=== PATIENT | female | born 1965 | race Caucasian/White ===

== ENCOUNTER 2016-07-31 12:39 | Inpatient (IN) | payer MEDICAID ==
--- NOTE | 2016-07-31 13:45 | PCM.OC ---
Ortho Clinic - Subjective - Subjective Vital Signs: Last Vital Signs Temp 98 F 07/31/16 13:29 Pulse 90 07/31/16 13:29 Resp BP 154/97 H 07/31/16 13:29 Pulse Ox Home Medications: Home Meds Amitriptyline [Elavil] 25 mg PO DAILY 07/31/16 [History] Cyclobenzaprine [Flexeril] 10 mg PO TID 07/31/16 [History] Diclofenac Sodium 2 gm TOP TID 07/31/16 [History] Gabapentin [Neurontin] 300 mg PO BID 07/31/16 [History] Hydrochlorothiazide 12.5 mg PO DAILY 07/31/16 [History] Ibuprofen 800 mg PO TID 07/31/16 [History] Melatonin 10 mg PO BEDTIME 07/31/16 [History] Melatonin 10 mg PO BEDTIME 07/31/16 [History] Pantoprazole [Protonix] 40 mg PO DAILY 07/31/16 [History] Potassium Chloride 10 meq PO DAILY 07/31/16 [History] Propranolol [Inderal LA] 80 mg PO DAILY 07/31/16 [History] Sertraline [Zoloft] 100 mg PO DAILY 07/31/16 [History] amLODIPine [Norvasc] 5 mg PO DAILY 07/31/16 [History] atorvaSTATin [Lipitor] 40 mg PO BEDTIME 07/31/16 [History] glipiZIDE [Glipizide ER] 10 mg PO DAILY 07/31/16 [History] metFORMIN [Glucophage] 2 tab PO BID 07/31/16 [History] traMADol [Ultram] 2 tab PO Q6H PRN 07/31/16 [History] Ortho Clinic - Objective - Objective Height: 5 ft 4 in Weight: 210 lb 12.8 oz Ortho Clinic - Past Med Histry Musculoskeletal History: Reports: Back pain, chronic Ortho Clinic Review of Systems - Review of Systems: Review Of Systems: See Below General: Reports: no symptoms HEENT: Reports: no symptoms Pulmonary: Reports: No Symptoms Cardiovascular: Reports: no symptoms Gastrointestinal: Reports: No symptoms Genitourinary: Reports: no symptoms Musculoskeletal: Reports: neck pain, back pain, leg pain Skin: Reports: no symptoms Psychiatric: Reports: no symptoms Neurological: Reports: Numbness, Paresthesia, Tingling, Difficulty Walking, Weakness, Gait Disturbance Hematologic/Lymphatic: Reports: no symptoms Immunologic: Reports: no symptoms Ortho Clinic - AP - Problems List (1) History of cervical spinal arthrodesis SNOMED Code(s): 832705957, [id number] ICD Code: Z98.1 - ARTHRODESIS STATUS Status: Acute Current Visit: Yes (2) Myelopathy Status: Acute Current Visit: Yes - Plan Plan: I had the pleasure of visiting with the patient and her in clinic. She is a pleasant 50-year-old female. In the last 2 months she's had episodes where she just falls. She states she is very unsteady on her feet. She is having difficulty walking. She denies any severe pain in her back. She does have some pain in her neck. She has numbness of almost the entire left lower extremity. She had 2 previous cervical surgeries as well some posterior cervical surgery in 2003 in [place]. SPINE Musculoskeletal Physical Examination Constitutional: Vital signs including height and weight were reviewed and documented on the patient's chart. General appearance demonstrates normal development and overweight body habitus. HEENT: Normocephalic, atraumatic. Neurological: The patient is alert and oriented to person, place, and time. Mood and affect are appropriate. Gait and station are severely antalgic. Intact sensation is noted but decreased in the left L3, L4, L5, and S1 distribution. Deep tendon reflexes are symmetrically decreased. Clonus negative. Dockery's negative. Coordination and balance are severely impaired. Lumbar spine: Inspection/palpation: Normal symmetry and appearance without tenderness. Range of motion: Flexion with fingers to knees with difficulty secondary to balance. 15 extension with difficulty due to balance. Normal side bending without pain. Stability: Stable through range of motion. Strength : Normal muscle strength and tone. Skin: Normal skin tone without rashes or lesions. Cervical Spine: Inspection/palpation: Normal symmetry and appearance with bilateral paraspinal tenderness. Range of motion: Normal flexion. 50 extension. 30 bilateral rotation with pain. Stability: Stable through range of motion. Strength: Normal muscle strength and tone. Skin: Normal skin tone without rashes or lesions. Right upper extremity: Inspection/palpation: Normal symmetry and appearance without tenderness. Range of motion: Full range of motion without pain. Stability: Stable through range of motion. Strength: Normal muscle strength and tone. Skin: Normal skin tone without rashes or lesions. Left upper extremity: Inspection/palpation: Normal symmetry and appearance without tenderness. Range of motion: Full range of motion without pain. Stability: Stable through range of motion. Strength: Normal muscle strength and tone. Skin: Normal skin tone without rashes or lesions. Right lower extremity: Inspection/palpation: Normal symmetry and appearance without tenderness. Range of motion: Full range of motion without pain. Stability: Stable through range of motion. Strength: Normal muscle strength and tone. Skin: Normal skin tone without rashes or lesions.2 beats clonus. Log roll negative. Straight leg raise negative. Left lower extremity: Inspection/palpation: Normal symmetry and appearance without tenderness. Range of motion: Full range of motion without pain. Stability: Stable through range of motion. Strength: Normal muscle strength and tone except dorsiflexors 4/5, knee extensors 4/5, hip flexors 4 minus out of 5. Skin: Normal skin tone without rashes or lesions.no clonus. Straight leg raise negative. Log roll negative. Imaging: Multiple views of the lumbar spine reviewed incorporated into the decision-making process. There is a nonmobile retrolisthesis at L1-2 of 2 mm, anterolisthesis of L4-5 of 4 mm. On the AP view in the coronal plane there is an apex right L3 10 scoliotic curve Cervical spine:multiple views of the cervical spine reviewed incorporated into the decision-making process. There is ossification posterior to the anterior cervical discectomy and fusion performed at C4-C6. The plate and screw constructs is in place at C4-C6. I do not see any lucency around the plate or screws. I do not see any areas of listhesis. It is difficult to appreciate the lower cervical spine. MRI: MRI shows no significant areas of central or foraminal stenosis. plan: I believe that the patient has cervical myelopathy. She certainly has severe ataxia. I would like to admit her for further workup. This would include an urgent MRI of the brain, cervical spine, and thoracic spine. I will evaluating her after these are complete.
--- NOTE | 2016-07-31 14:28 | CR ---
Cervical Spine Min 4V INDICATION: NECK PAIN FINDINGS: Postoperative changes anterior fusion from C4 through C7. Hardware appears intact. Degener ative disc space narrowing and endplate hypertrophic changes at C3-4. No evidence for instability on flexion or extension views.
--- NOTE | 2016-07-31 14:39 | CR ---
Lumbar Spine Min 4V INDICATION: BACK PAIN FINDINGS: 5 lumbar type vertebral bodies. Lumbar curve convex to the right. No instability on flexio n or extension views. Moderate degenerative arthritis lower lumbar facet joints.
--- NOTE | 2016-07-31 14:58 | PCM.HP ---
H&P History of Present Illness - General Date of Service: 07/31/16 Admit Problem/Dx: Admission Diagnosis/Problem Admission Diagnosis/Problem Cervical myelopathy Source of Information: Patient History Limitations: Reports: No limitations - History of Present Illness Onset of Symptoms: Reports: gradual Duration of Symptoms: Reports: Getting worse Location: Reports: neck, lower extremity, left Improves with: Reports: None Worsens with: Reports: None Associated Symptoms: Reports: weakness Lower Back Pain Score (Numeric/FACES): 1 - Related Data Allergies/Adverse Reactions: Allergies Allergy/AdvReac Type Severity Reaction Status Date / Time clonidine [From Catapres] Allergy Rash Verified 07/31/16 13:34 lisinopril Allergy Hives Verified 07/31/16 13:34 Home Medications: Home Meds Amitriptyline [Elavil] 25 mg PO DAILY 07/31/16 [History] Cyclobenzaprine [Flexeril] 10 mg PO TID 07/31/16 [History] Diclofenac Sodium 2 gm TOP TID 07/31/16 [History] Gabapentin [Neurontin] 300 mg PO BID 07/31/16 [History] Hydrochlorothiazide 12.5 mg PO DAILY 07/31/16 [History] Ibuprofen 800 mg PO TID 07/31/16 [History] Melatonin 10 mg PO BEDTIME 07/31/16 [History] Melatonin 10 mg PO BEDTIME 07/31/16 [History] Pantoprazole [Protonix] 40 mg PO DAILY 07/31/16 [History] Potassium Chloride 10 meq PO DAILY 07/31/16 [History] Propranolol [Inderal LA] 80 mg PO DAILY 07/31/16 [History] Sertraline [Zoloft] 100 mg PO DAILY 07/31/16 [History] amLODIPine [Norvasc] 5 mg PO DAILY 07/31/16 [History] atorvaSTATin [Lipitor] 40 mg PO BEDTIME 07/31/16 [History] glipiZIDE [Glipizide ER] 10 mg PO DAILY 07/31/16 [History] metFORMIN [Glucophage] 2 tab PO BID 07/31/16 [History] traMADol [Ultram] 2 tab PO Q6H PRN 07/31/16 [History] Past Medical History Musculoskeletal History: Reports: Back pain, chronic H&P Review of Systems - Review of Systems: Review Of Systems: See Below General: Reports: weakness HEENT: Reports: no symptoms Pulmonary: Reports: No Symptoms Cardiovascular: Reports: no symptoms Gastrointestinal: Reports: No symptoms Genitourinary: Reports: no symptoms Musculoskeletal: Reports: neck pain, back pain Skin: Reports: no symptoms (with ais) Psychiatric: Reports: no symptoms (now the well to the) Neurological: Reports: Numbness, Tingling, Difficulty Walking, Weakness, Gait Disturbance Hematologic/Lymphatic: Reports: no symptoms Immunologic: Reports: no symptoms Exam - Exam Exam: See Below - Vital Signs Vital Signs: Last Vital Signs Temp 99.2 F 07/31/16 14:52 Pulse 93 07/31/16 14:52 Resp 18 07/31/16 14:52 BP 172/95 H 07/31/16 14:52 Pulse Ox 97 07/31/16 14:52 Weight: 210 lb 12.8 oz - Exam General: alert, oriented HEENT: PERRLA, Conjunctiva clear, EOMI Neck: supple, trachea midline (of her) Skin: warm, dry, intact Neurological: cranial nerves intact, reflexes equal bilateral Neuro Extensive - Mental Status: alert, oriented x3, normal mood/affect, normal cognition Neuro Extensive - Motor, Sensory, Reflexes: abnormal Romberg, abnormal sensation , abnormal light touch DTR: 1+: patella (L), patella (R), 2+: achilles (L), achilles (R) Psychiatric: alert, normal affect, normal mood *Q Meaningful Use (ADM) - VTE *Q VTE Criteria *Q: - Stroke *Q Stroke Criteria *Q: - AMI *Q AMI Criteria *Q: - Problem List (1) History of cervical spinal arthrodesis SNOMED Code(s): 519601613, [id number] ICD Code: Z98.1 - ARTHRODESIS STATUS Status: Acute Current Visit: Yes (2) Myelopathy Status: Acute Current Visit: Yes Problem List Initiated/Reviewed/Updated: Yes Orders Last 24hrs: Active Orders 24 hr Category Date Time Status Patient Status [ADT] Routine ADT 07/31/16 14:49 Active Notify Provider Consults [RC] ASDIRECTED Care 07/31/16 14:52 Active Oxygen Therapy [RC] PRN Care 07/31/16 14:49 Active Up ad Janessa [RC] ASDIRECTED Care 07/31/16 14:49 Active VTE/DVT Education [RC] Per Unit Routine Care 07/31/16 14:49 Active Vital Signs [RC] Q4H Care 07/31/16 14:49 Active Consult to Physician [CONS] Routine Cons 07/31/16 14:49 Ordered Regular Diet [DIET] Diet 07/31/16 Dinner Active Amitriptyline [Elavil] Med 08/01/16 09:00 Ordered 25 mg PO DAILY Cyclobenzaprine [Flexeril] Med 07/31/16 21:00 Ordered 10 mg PO TID Diclofenac Sodium [Diclofenac Sodium] Med 07/31/16 21:00 Ordered 2 gm TOP TID Gabapentin [Neurontin] Med 07/31/16 21:00 Ordered 300 mg PO BID Hydrochlorothiazide [Hydrochlorothiazide] Med 08/01/16 09:00 Ordered 12.5 mg PO DAILY Ibuprofen [Motrin] Med 07/31/16 21:00 Ordered 800 mg PO TID Melatonin [Melatonin] Med 07/31/16 21:00 Ordered 10 mg PO BEDTIME Pantoprazole [Protonix] Med 08/01/16 09:00 Ordered 40 mg PO DAILY Potassium Chloride [Potassium Chloride] Med 08/01/16 09:00 Ordered 10 meq PO DAILY Propranolol [Inderal LA] Med 08/01/16 09:00 Ordered 80 mg PO DAILY Sertraline [Zoloft] Med 08/01/16 09:00 Ordered 100 mg PO DAILY amLODIPine [Norvasc] Med 08/01/16 09:00 Ordered 5 mg PO DAILY atorvaSTATin [Lipitor] Med 07/31/16 21:00 Ordered 40 mg PO BEDTIME glipiZIDE [Glipizide ER] Med 08/01/16 09:00 Ordered 10 mg PO DAILY metFORMIN [Glucophage] Med 07/31/16 21:00 Ordered 2 tab PO BID traMADol [Ultram] Med 07/31/16 14:52 Ordered 2 tab PO Q6H PRN Sequential Compression Device [OM.PC] Per Unit Routine Oth 07/31/16 14:50 Ordered Resuscitation Status Routine Resus Stat 07/31/16 14:49 Ordered Assessment/Plan Comment:: I had the pleasure of visiting with the patient and her in clinic. She is a pleasant 50-year-old female. In the last 2 months she's had episodes where she just falls. She states she is very unsteady on her feet. She is having difficulty walking. She denies any severe pain in her back. She does have some pain in her neck. She has numbness of almost the entire left lower extremity. She had 2 previous cervical surgeries as well some posterior cervical surgery in 2003 in [place]. SPINE Musculoskeletal Physical Examination Constitutional: Vital signs including height and weight were reviewed and documented on the patient's chart. General appearance demonstrates normal development and overweight body habitus. HEENT: Normocephalic, atraumatic. Neurological: The patient is alert and oriented to person, place, and time. Mood and affect are appropriate. Gait and station are severely antalgic. Intact sensation is noted but decreased in the left L3, L4, L5, and S1 distribution. Deep tendon reflexes are symmetrically decreased. Clonus negative. Dockery's negative. Coordination and balance are severely impaired. Lumbar spine: Inspection/palpation: Normal symmetry and appearance without tenderness. Range of motion: Flexion with fingers to knees with difficulty secondary to balance. 15 extension with difficulty due to balance. Normal side bending without pain. Stability: Stable through range of motion. Strength : Normal muscle strength and tone. Skin: Normal skin tone without rashes or lesions. Cervical Spine: Inspection/palpation: Normal symmetry and appearance with bilateral paraspinal tenderness. Range of motion: Normal flexion. 50 extension. 30 bilateral rotation with pain. Stability: Stable through range of motion. Strength: Normal muscle strength and tone. Skin: Normal skin tone without rashes or lesions. Right upper extremity: Inspection/palpation: Normal symmetry and appearance without tenderness. Range of motion: Full range of motion without pain. Stability: Stable through range of motion. Strength: Normal muscle strength and tone. Skin: Normal skin tone without rashes or lesions. Left upper extremity: Inspection/palpation: Normal symmetry and appearance without tenderness. Range of motion: Full range of motion without pain. Stability: Stable through range of motion. Strength: Normal muscle strength and tone. Skin: Normal skin tone without rashes or lesions. Right lower extremity: Inspection/palpation: Normal symmetry and appearance without tenderness. Range of motion: Full range of motion without pain. Stability: Stable through range of motion. Strength: Normal muscle strength and tone. Skin: Normal skin tone without rashes or lesions.2 beats clonus. Log roll negative. Straight leg raise negative. Left lower extremity: Inspection/palpation: Normal symmetry and appearance without tenderness. Range of motion: Full range of motion without pain. Stability: Stable through range of motion. Strength: Normal muscle strength and tone except dorsiflexors 4/5, knee extensors 4/5, hip flexors 4 minus out of 5. Skin: Normal skin tone without rashes or lesions.no clonus. Straight leg raise negative. Log roll negative. Imaging: Multiple views of the lumbar spine reviewed incorporated into the decision-making process. There is a nonmobile retrolisthesis at L1-2 of 2 mm, anterolisthesis of L4-5 of 4 mm. On the AP view in the coronal plane there is an apex right L3 10 scoliotic curve Cervical spine:multiple views of the cervical spine reviewed incorporated into the decision-making process. There is ossification posterior to the anterior cervical discectomy and fusion performed at C4-C6. The plate and screw constructs is in place at C4-C6. I do not see any lucency around the plate or screws. I do not see any areas of listhesis. It is difficult to appreciate the lower cervical spine. MRI: MRI shows no significant areas of central or foraminal stenosis. plan: I believe that the patient has cervical myelopathy. She certainly has severe ataxia. I would like to admit her for further workup. This would include an urgent MRI of the brain, cervical spine, and thoracic spine. I will evaluate her after these are complete.
[2016-07-31] MEDS: metFORMIN 500 MG Tab PO SCH (16:42)
--- NOTE | 2016-07-31 17:56 | PCM.CONS ---
H&P History of Present Illness - General Date of Service: 07/31/16 Admit Problem/Dx: Source of Information: Patient, Family, Provider History Limitations: Reports: No limitations - History of Present Illness Initial Comments - Free Text/Narative: This patient is a 50-year-old woman who I been asked to see by Dr. Tim Dorado for further evaluation of left leg numbness, difficulty with ambulation, and frequent falls. Symptoms have been present over the past 3 months, symptoms developed when she slipped and fell on the ice, landing on her buttocks. Since then symptoms have progressively increased to the point where she feels like her left leg is almost totally numb with no sensation. She denies significant motor weakness in the leg. Otherwise she is felt relatively well, appetite has been good, with no significant weight loss. Lower Back Pain Score (Numeric/FACES): 1 - Related Data Allergies/Adverse Reactions: Allergies Allergy/AdvReac Type Severity Reaction Status Date / Time clonidine [From Catapres] Allergy Rash Verified 07/31/16 13:34 lisinopril Allergy Hives Verified 07/31/16 13:34 Home Medications: Home Meds Amitriptyline [Elavil] 25 mg PO BEDTIME 07/31/16 [History] Cyclobenzaprine [Flexeril] 10 mg PO TID 07/31/16 [History] Diclofenac Sodium 2 gm TOP TID 07/31/16 [History] Gabapentin [Neurontin] 300 mg PO BID 07/31/16 [History] Hydrochlorothiazide 12.5 mg PO DAILY 07/31/16 [History] Ibuprofen 800 mg PO TID 07/31/16 [History] Melatonin 10 mg PO BEDTIME 07/31/16 [History] Melatonin 10 mg PO BEDTIME 07/31/16 [History] Pantoprazole [Protonix] 40 mg PO DAILY 07/31/16 [History] Potassium Chloride 10 meq PO DAILY 07/31/16 [History] Propranolol [Inderal LA] 80 mg PO BEDTIME 07/31/16 [History] Sertraline [Zoloft] 100 mg PO DAILY 07/31/16 [History] amLODIPine [Norvasc] 5 mg PO DAILY 07/31/16 [History] atorvaSTATin [Lipitor] 40 mg PO BEDTIME 07/31/16 [History] glipiZIDE [Glipizide ER] 10 mg PO DAILY 07/31/16 [History] metFORMIN [Glucophage] 1,000 mg PO BID 07/31/16 [History] traMADol [Ultram] 100 mg PO Q6H PRN 07/31/16 [History] Past Medical History Gastrointestinal History: Reports: [employer] History: Reports: Musculoskeletal History: Reports: Back pain, chronic, Neck pain, chronic Neurological History: Reports: Headaches, chronic Endocrine/Metabolic History: Reports: Diabetes, type II - Past Surgical History GI Surgical History: Reports: Arvind fundoplication Neurological Surgical History: Reports: C-Spine Musculoskeletal Surgical History: Reports: Other (see below) Other Musculoskeletal Surgeries/Procedures:: neck surgery x 2 Social & Family History - Family History Family Medical History: Noncontributory - Tobacco Use Smoking Status *Q: Never Smoker Second Hand Smoke Exposure: No - Caffeine Use Caffeine Use: Reports: Coffee - Recreational Drug Use Recreational Drug Use: No H&P Review of Systems - Review of Systems: Review Of Systems: See Below General: Denies: fever, chills, malaise, weakness, fatigue, night sweats, diaphoresis, decreased appetite, weight loss HEENT: Reports: no symptoms Pulmonary: Reports: No Symptoms Cardiovascular: Reports: no symptoms Gastrointestinal: Reports: No symptoms Genitourinary: Reports: no symptoms Musculoskeletal: Reports: no symptoms Skin: Reports: no symptoms Psychiatric: Reports: no symptoms Neurological: Reports: Numbness, Difficulty Walking. Denies: Confusion, Dizziness, Headache, Seizure, Syncope, Tingling, Tremors, Trouble Speaking, Weakness, Change in Speech Hematologic/Lymphatic: Reports: no symptoms Immunologic: Reports: no symptoms Exam - Exam Exam: See Below - Vital Signs Vital Signs: Last Vital Signs Temp 99.2 F 07/31/16 14:52 Pulse 93 07/31/16 14:52 Resp 18 07/31/16 14:52 BP 172/95 H 07/31/16 14:52 Pulse Ox 97 07/31/16 14:52 Weight: 210 lb 12.8 oz - Exam General: alert, oriented, cooperative, mild distress HEENT: Conjunctiva clear, Hearing intact, Mucosa moist & pink, Nares patent, Normal nasal septum, Posterior pharynx clear, Pupils equal, Pupils reactive Neck: supple, trachea midline, +2 carotid pulse wo bruit Lungs: Clear to auscultation, Normal respiratory effort Cardiovascular: regular rate, regular rhythm, normal S1, normal S2. No: irregular rhythm, bradycardia, tachycardia, systolic murmur, diastolic murmur Abdomen: normal bowel sounds, soft. No: organomegaly, peritoneal signs, distention, guarding, rigidity, rebound, tenderness Back Exam: normal inspection, full range of motion, NT Extremities: normal inspection, normal pulses Skin: warm, dry, intact Neurological: cranial nerves intact, reflexes equal bilateral, strength equal bilateral, normal speech, normal tone, Babinski. No: sensation intact Neuro Extensive - Mental Status: alert, oriented x3, normal mood/affect, normal cognition, memory intact Neuro Extensive - Motor, Sensory, Reflexes: abnormal sensation, abnormal light touch. No: ataxia, abnormal finger to nose, abnormal heel to shaw Consult PN Assessment/Plan Problem List Initiated/Reviewed/Updated: Yes My Orders last 24 hours: My Active Orders 07/31/16 17:48 CBC WITH AUTO DIFF [HEME] Urgent COMPREHENSIVE METABOLIC PN,CMP [CHEM] Urgent 07/31/16 17:49 CRP [C-REACTIVE PROTEIN] [CHEM] Routine FOLIC ACID [CHEM] Routine MAGNESIUM [CHEM] Urgent SEDIMENTATION RATE MANUAL [HEME] Routine TSH ULTRASENSITIVE [CHEM] Urgent VITAMIN B12 [CHEM] Routine Plan: ASSESSMENT AND RECOMMENDATIONS DECREASED SENSATION LEFT LEG-symptoms first occurred following a fall onto her buttocks after she slipped on the ice. Since then has developed progressive numbness and difficulty with ambulation involving the left leg. On evaluation has decreased sensation in the left leg and foot, including touch, pain and position sense. There is mild weakness which may also be a contributing factor. Reflexes were normal and symmetrical and Babinski's is normal. -MRI of the brain with and without contrast -MRI of the spine as ordered by Dr. Dorado -Laboratory studies including CMP, CBC, sedimentation rate, CRP, T12, folate, and TSH Requesting Provider: Date Consult Requested: 07/31/16 Reason for Consult: Decreased sensation left leg with frequent falls Patient History Reviewed: Yes Admission H&P Reviewed: Yes
[2016-07-31] MEDS ORDERED: DICLOFENAC SODIUM 2 GM TOP SCH (21:00)
[2016-07-31] MEDS ORDERED: Non-Formulary Medication 1 Each (Atorvastatin [Lipitor] 40 MG) PO SCH (21:00)
[2016-07-31] MEDS ORDERED: Non-Formulary Medication 1 Each (Melatonin [Melatonin] 10 MG) PO SCH (21:00)
[2016-07-31] MEDS ORDERED: Gabapentin 300 MG Cap PO SCH (21:00)
[2016-07-31] MEDS: traMADol 50 MG Tab PO PRN (21:59)
[2016-07-31] MEDS: Melatonin 3 MG Tab PO SCH (22:00)
[2016-07-31] MEDS: atorvaSTATin 20 MG Tab PO SCH (22:00)
[2016-07-31] MEDS: Amitriptyline 25 MG Tab PO SCH (22:01)
[2016-07-31] MEDS: Cyclobenzaprine 10 MG Tab PO SCH (22:01)
[2016-07-31] MEDS: Ibuprofen 800 MG Tab PO SCH (22:01)
[2016-07-31] MEDS: Diclofenac Sodium 1% Gel 100 GM Tube TOP SCH (22:02)
[2016-07-31] MEDS: Propranolol 80 MG Cap.ER PO SCH (22:05)
[2016-07-31] MEDS: Gabapentin 300 MG Cap PO SCH (22:15)
[2016-07-31] MEDS: Dexamethasone 4 MG/ML SDV IVPUSH SCH (22:17)
[2016-07-31] MEDS ORDERED: Sertraline 50 MG Tab PO ONE (22:30)
[2016-08-01] MEDS: Dexamethasone 4 MG/ML SDV IVPUSH SCH ×2 (02:46→08:21)
[2016-08-01] MEDS: traMADol 50 MG Tab PO PRN ×3 (04:53→21:21)
[2016-08-01] MEDS: metFORMIN 500 MG Tab PO SCH ×2 (07:29→17:23)
[2016-08-01] MEDS: Pantoprazole 40 MG Tab.CR PO SCH (07:30)
[2016-08-01] MEDS: glipiZIDE 5 MG Tab.ER PO SCH ×2 (07:31→08:08)
[2016-08-01] MEDS: Ibuprofen 800 MG Tab PO SCH ×3 (08:06→21:02)
[2016-08-01] MEDS: Gabapentin 300 MG Cap PO SCH ×3 (08:07→21:04)
[2016-08-01] MEDS: Propranolol 80 MG Cap.ER PO SCH ×2 (08:09→21:05)
[2016-08-01] MEDS: amLODIPine 5 MG Tab PO SCH (08:09)
[2016-08-01] MEDS: Potassium Chloride 10 MEQ Cap.ER PO SCH (08:10)
[2016-08-01] MEDS: Diclofenac Sodium 1% Gel 100 GM Tube TOP SCH ×3 (08:12→21:06)
[2016-08-01] MEDS: Diazepam 5 MG Tab PO ONE ×2 (08:20→10:30)
[2016-08-01] MEDS ORDERED: Non-Formulary Medication 1 Each (Potassium Chloride [Potassium Chloride] 10 MEQ) PO SCH (09:00)
[2016-08-01] MEDS ORDERED: Sertraline 50 MG Tab PO SCH (09:00)
[2016-08-01] MEDS ORDERED: Non-Formulary Medication 1 Each (Sertraline [Zoloft] 100 MG) PO SCH (09:00)
[2016-08-01] MEDS ORDERED: Non-Formulary Medication 1 Each (Glipizide [Glipizide Er] 10 MG) PO SCH (09:00)
[2016-08-01] MEDS ORDERED: Non-Formulary Medication 1 Each (Hydrochlorothiazide [Hydrochlorothiazide] 12.5 MG) PO SCH (09:00)
[2016-08-01] MEDS ORDERED: Gadoteridol 279.3 MG/ML 20 ML SDV IV PRN (10:45)
[2016-08-01] MEDS: Cyclobenzaprine 10 MG Tab PO SCH ×3 (11:19→21:05)
[2016-08-01] MEDS: Magnesium Oxide 400 MG Tab PO SCH ×2 (11:19→21:03)
[2016-08-01] MEDS: Hydrochlorothiazide 12.5 MG Cap PO SCH (11:20)
--- NOTE | 2016-08-01 12:12 | MR ---
Brain w wo Cont INDICATION: ataxia FINDINGS: Patient motion artifact degrades image quality. No evidence for mass, or restricted diffus ion. No abnormal contrast enhancement. Single 3 mm punctate focus of T2 hyperintensity in the subcor tical white matter of the left frontal lobe is nonspecific and is of doubtful clinical significance. Minimal mucosal thickening in the ethmoid sinuses. Exam otherwise negative. IMPRESSION: No acute findings.
--- NOTE | 2016-08-01 12:17 | MR ---
Cervical Spine Comp wo Cont, Thoracic Spine Comp wo Cont INDICATION: cervical neck pain FINDINGS: Patient motion artifact degrades image quality. Normal T1 marrow signal. Scattered benign vertebral hemangiomas. Postoperative changes anterior fusion from C4 through C7. Moderate sized disc osteophyte complex at C3-4 produces mild spinal canal and moderate bilateral neural foraminal narro wing. 3 mm anterolisthesis of C7 on T1 with disc osteophyte complex produces moderate/severe spinal canal narrowing with an AP dimension measuring 5 mm and severe bilateral neural foraminal narrowing. No evidence for abnormal cervical cord signal. Disc osteophyte complex with disc desiccation at T11-12 minimally contacts the thoracic cord but langston s not produce significant spinal canal narrowing. No significant foraminal narrowing in the thoracic spine any level. Small esophageal hiatal hernia. Exam otherwise negative. IMPRESSION: Stenosis most marked at C7-T1 is graded as moderate/severe spinal canal narrowing with a n AP dimension measuring 5 mm. Severe bilateral neural foraminal narrowing at C7-T1. No evidence for abnormal cervical or thoracic cord signal.
--- NOTE | 2016-08-01 12:52 | PCM.PN ---
- General Info Date of Service: 08/01/16 - Review of Systems General: Reports: No Symptoms HEENT: Reports: no symptoms Pulmonary: Reports: no symptoms Cardiovascular: Reports: No Symptoms Gastrointestinal: Reports: No symptoms Genitourinary: Reports: no symptoms Musculoskeletal: Reports: no symptoms Skin: Reports: no symptoms Neurological: Reports: Numbness, Paresthesia, Tingling, Difficulty Walking, Weakness, Gait Disturbance Psychiatric: Reports: no symptoms - Patient Data Vitals - most recent: Last Vital Signs Temp 98.1 F 08/01/16 11:57 Pulse 104 H 08/01/16 11:57 Resp 16 08/01/16 11:57 BP 122/79 08/01/16 11:57 Pulse Ox 95 08/01/16 11:57 Weight - most recent: 210 lb 12.8 oz I&O - last 24 hours: Intake & Output 07/31/16 08/01/16 08/01/16 22:59 06:59 14:59 Intake Total 360 960 Output Total 500 400 Balance -140 560 Lab Results last 24 hrs: Laboratory Results - last 24 hr 07/31/16 07/31/16 07/31/16 Range/Units 18:28 18:28 18:28 WBC 12.0 H (4.5-11.0) K/uL RBC 4.43 (3.30-5.50) M/uL Hgb 13.1 (12.0-15.0) g/dL Hct 38.9 (36.0-48.0) % MCV 88 (80-98) fL MCH 30 (27-31) pg MCHC 34 (32-36) % Plt Count 337 (150-400) K/uL Neut % (Auto) 58 (36-66) % Lymph % (Auto) 30 (24-44) % [place] % (Auto) 7 H (2-6) % Eos % (Auto) 4 (2-4) % Baso % (Auto) 1 (0-1) % ESR 29 H (0-25) mm/hr Sodium 141 (140-148) mmol/L Potassium 3.8 (3.6-5.2) mmol/L Chloride 103 (100-108) mmol/L Carbon Dioxide 26 (21-32) mmol/L Anion Gap 12.1 (5.0-14.0) mmol/L BUN 9 (7-18) mg/dL Creatinine 0.8 (0.6-1.0) mg/dL Est Cr Clr Drug Dosing 74.26 mL/min Estimated GFR (MDRD) > 60 (>60) Glucose 200 H (74-106) mg/dL Calcium 9.3 (8.5-10.1) mg/dL Magnesium (1.8-2.4) mg/dL Total Bilirubin 0.8 (0.2-1.0) mg/dL AST 21 (15-37) U/L ALT 37 (12-78) U/L Alkaline Phosphatase 103 (46-116) U/L C-Reactive Protein (0.0-0.3) mg/dL Total Protein 7.6 (6.4-8.2) g/dL Albumin 3.5 (3.4-5.0) g/dL Globulin 4.1 H (2.3-3.5) g/dL Albumin/Globulin Ratio 0.9 L (1.2-2.2) Vitamin B12 (193-986) pg/ml Folate (8.6-58.9) ng/ml TSH, Ultra Sensitive (0.358-3.740) uIU/mL 07/31/16 07/31/16 Range/Units 18:28 18:28 WBC (4.5-11.0) K/uL RBC (3.30-5.50) M/uL Hgb (12.0-15.0) g/dL Hct (36.0-48.0) % MCV (80-98) fL MCH (27-31) pg MCHC (32-36) % Plt Count (150-400) K/uL Neut % (Auto) (36-66) % Lymph % (Auto) (24-44) % [place] % (Auto) (2-6) % Eos % (Auto) (2-4) % Baso % (Auto) (0-1) % ESR (0-25) mm/hr Sodium (140-148) mmol/L Potassium (3.6-5.2) mmol/L Chloride (100-108) mmol/L Carbon Dioxide (21-32) mmol/L Anion Gap (5.0-14.0) mmol/L BUN (7-18) mg/dL Creatinine (0.6-1.0) mg/dL Est Cr Clr Drug Dosing mL/min Estimated GFR (MDRD) (>60) Glucose (74-106) mg/dL Calcium (8.5-10.1) mg/dL Magnesium 1.6 L (1.8-2.4) mg/dL Total Bilirubin (0.2-1.0) mg/dL AST (15-37) U/L ALT (12-78) U/L Alkaline Phosphatase (46-116) U/L C-Reactive Protein 0.63 H (0.0-0.3) mg/dL Total Protein (6.4-8.2) g/dL Albumin (3.4-5.0) g/dL Globulin (2.3-3.5) g/dL Albumin/Globulin Ratio (1.2-2.2) Vitamin B12 516 (193-986) pg/ml Folate 10.7 (8.6-58.9) ng/ml TSH, Ultra Sensitive 3.859 H (0.358-3.740) uIU/mL Med Orders - Current: Current Medications Amitriptyline HCl (Elavil) 25 mg PO BEDTIME [facility] Last Admin: 07/31/16 22:01 Dose: 25 mg Amlodipine Besylate (Norvasc) 5 mg PO DAILY [facility] Last Admin: 08/01/16 08:09 Dose: 5 mg Atorvastatin Calcium (Lipitor) 40 mg PO BEDTIME [facility] Last Admin: 07/31/16 22:00 Dose: 40 mg Cyclobenzaprine HCl (Flexeril) 10 mg PO TID [facility] Last Admin: 08/01/16 11:19 Dose: 10 mg Diclofenac Sodium (Voltaren 1% Gel) 0 gm TOP TID [facility] Last Admin: 08/01/16 08:12 Dose: Not Given Gabapentin (Neurontin) 900 mg PO 0900,1300 [facility] Last Admin: 08/01/16 08:07 Dose: 900 mg Gabapentin (Neurontin) 1,200 mg PO BEDTIME [facility] Last Admin: 07/31/16 22:15 Dose: 1,200 mg Gadoteridol (Prohance) 20 ml IV . DIRECTED PRN PRN Reason: RADIOLOGY EXAM Stop: 08/02/16 10:46 Last Admin: 08/01/16 11:13 Dose: 20 ml Glipizide (Glucotrol Xl) 10 mg PO DAILY [facility] Last Admin: 08/01/16 08:08 Dose: Not Given Hydrochlorothiazide (Hydrochlorothiazide) 12.5 mg PO DAILY [facility] Last Admin: 08/01/16 11:20 Dose: 12.5 mg Ibuprofen (Motrin) 800 mg PO TID [facility] Last Admin: 08/01/16 08:06 Dose: 800 mg Magnesium Oxide (Magnesium Oxide) 400 mg PO BID [facility] Last Admin: 08/01/16 11:19 Dose: 400 mg Melatonin (Melatonin) 9 mg PO BEDTIME [facility] Last Admin: 07/31/16 22:00 Dose: 9 mg Metformin HCl (Glucophage) 1,000 mg PO BIDMEALS [facility] Last Admin: 08/01/16 07:29 Dose: 1,000 mg Pantoprazole Sodium (Protonix) 40 mg PO ACBREAKFAST [facility] Last Admin: 08/01/16 07:30 Dose: 40 mg Potassium Chloride (Potassium Chloride) 10 meq PO DAILY [facility] Last Admin: 08/01/16 08:10 Dose: 10 meq Propranolol HCl (Inderal La) 80 mg PO BEDTIME [facility] Sertraline HCl (Zoloft) 100 mg PO BEDTIME [facility] Tramadol HCl (Ultram) 100 mg PO Q6H PRN PRN Reason: Pain Last Admin: 08/01/16 04:53 Dose: 100 mg Discontinued Medications Dexamethasone (Dexamethasone) 8 mg IVPUSH Q6H [facility] Last Admin: 08/01/16 08:21 Dose: 8 mg Diazepam (Valium.) 5 mg PO ASDIRECTED ONE Stop: 08/01/16 10:01 Last Admin: 08/01/16 10:30 Dose: Not Given Gabapentin (Neurontin) 300 mg PO BID [facility] Last Admin: 08/01/16 00:15 Dose: Not Given Propranolol HCl (Inderal La) 80 mg PO DAILY [facility] Last Admin: 08/01/16 08:09 Dose: Not Given Sertraline HCl (Zoloft) 100 mg PO DAILY [facility] Sertraline HCl (Zoloft) 100 mg PO ONETIME ONE Stop: 07/31/16 22:31 Last Admin: 07/31/16 22:16 Dose: 100 mg - Problem List & Annotations (1) History of cervical spinal arthrodesis SNOMED Code(s): 989303290, 030912691 Code(s): Z98.1 - ARTHRODESIS STATUS Status: Acute Current Visit: Yes (2) Myelopathy Status: Acute Current Visit: Yes - Problem List Review Problem List Initiated/Reviewed/Updated: Yes - My Orders Last 24 Hours: My Active Orders 08/01/16 10:45 Gadoteridol [ProHance] 20 ml IV . DIRECTED PRN - Plan Plan:: The patient's status is unchanged today. She still having difficulty ambulating. She states it is not getting better or worse. She does still have quite a bit of soreness feeling on her left buttock from a previous fall. Imaging: MRI of the brain showed only mild ethmoid thickening consistent with sinusitis. Cervical MRI did show mild stenosis at 34. There is severe stenosis with space available for cord just over 5 mm at C7-T1. MRI of the thoracic spine showed only a minor disc bulge in the lower thoracic spine. Plan: I've advised the patient that I believe that she benefit from a posterior cervical laminectomy and fusion at C7-T1. I've advised her that we may need to go up or down a level her to to achieve adequate fixation. I've explained the risks and benefits of the procedure. We have given her a consent to read over. Will plan on performing this procedure tomorrow.
--- NOTE | 2016-08-01 16:33 | PCM.CONSN ---
- General Info Date of Service: 08/01/16 Functional Status: Reports: pain controlled, tolerating diet - Review of Systems General: Reports: No Symptoms Pulmonary: Reports: no symptoms Cardiovascular: Reports: No Symptoms Gastrointestinal: Reports: No symptoms Neurological: Reports: Numbness Systems Review Comment:: This patient has undergone further evaluation including MRI today. MRI of the brain with and without contrast showed no significant abnormalities. MRI of the cervical spine documents moderate to severe stenosis at the C7-T1 level. This likely explains her ongoing symptoms of left leg numbness and weakness causing significant difficulty with ambulation. - Patient Data Vitals - most recent: Last Vital Signs Temp 98.5 F 08/01/16 15:01 Pulse 113 H 08/01/16 15:01 Resp 18 08/01/16 15:01 BP 140/80 08/01/16 15:01 Pulse Ox 95 08/01/16 15:01 Weight - most recent: 210 lb 12.8 oz I&O - last 24 hours: Intake & Output 08/01/16 08/01/16 08/01/16 06:59 14:59 22:59 Intake Total 960 1680 Output Total 400 600 Balance 560 1080 Lab Results last 24 hrs: Laboratory Results - last 24 hr 07/31/16 07/31/16 07/31/16 Range/Units 18:28 18:28 18:28 WBC 12.0 H (4.5-11.0) K/uL RBC 4.43 (3.30-5.50) M/uL Hgb 13.1 (12.0-15.0) g/dL Hct 38.9 (36.0-48.0) % MCV 88 (80-98) fL MCH 30 (27-31) pg MCHC 34 (32-36) % Plt Count 337 (150-400) K/uL Neut % (Auto) 58 (36-66) % Lymph % (Auto) 30 (24-44) % [place] % (Auto) 7 H (2-6) % Eos % (Auto) 4 (2-4) % Baso % (Auto) 1 (0-1) % ESR 29 H (0-25) mm/hr Sodium 141 (140-148) mmol/L Potassium 3.8 (3.6-5.2) mmol/L Chloride 103 (100-108) mmol/L Carbon Dioxide 26 (21-32) mmol/L Anion Gap 12.1 (5.0-14.0) mmol/L BUN 9 (7-18) mg/dL Creatinine 0.8 (0.6-1.0) mg/dL Est Cr Clr Drug Dosing 74.26 mL/min Estimated GFR (MDRD) > 60 (>60) Glucose 200 H (74-106) mg/dL Calcium 9.3 (8.5-10.1) mg/dL Magnesium (1.8-2.4) mg/dL Total Bilirubin 0.8 (0.2-1.0) mg/dL AST 21 (15-37) U/L ALT 37 (12-78) U/L Alkaline Phosphatase 103 (46-116) U/L C-Reactive Protein (0.0-0.3) mg/dL Total Protein 7.6 (6.4-8.2) g/dL Albumin 3.5 (3.4-5.0) g/dL Globulin 4.1 H (2.3-3.5) g/dL Albumin/Globulin Ratio 0.9 L (1.2-2.2) Vitamin B12 (193-986) pg/ml Folate (8.6-58.9) ng/ml TSH, Ultra Sensitive (0.358-3.740) uIU/mL Urine Color Urine Appearance Urine pH (4.5-8.0) Ur Specific [place] (1.008-1.030) Urine Protein (NEGATIVE) mg/dL Urine Glucose (UA) (NEGATIVE) mg/dL Urine Ketones (NEGATIVE) mg/dL Urine Occult Blood (NEGATIVE) Urine Nitrite (NEGATIVE) Urine Bilirubin (NEGATIVE) Urine Urobilinogen (NORMAL) mg/dL Ur Leukocyte Esterase (NEGATIVE) Urine RBC (0-5) Urine WBC (0-5) Ur Epithelial Cells Amorphous Sediment Urine Bacteria Urine Mucus Blood Type Gel Antibody Screen 07/31/16 07/31/16 08/01/16 Range/Units 18:28 18:28 12:45 WBC (4.5-11.0) K/uL RBC (3.30-5.50) M/uL Hgb (12.0-15.0) g/dL Hct (36.0-48.0) % MCV (80-98) fL MCH (27-31) pg MCHC (32-36) % Plt Count (150-400) K/uL Neut % (Auto) (36-66) % Lymph % (Auto) (24-44) % [place] % (Auto) (2-6) % Eos % (Auto) (2-4) % Baso % (Auto) (0-1) % ESR (0-25) mm/hr Sodium (140-148) mmol/L Potassium (3.6-5.2) mmol/L Chloride (100-108) mmol/L Carbon Dioxide (21-32) mmol/L Anion Gap (5.0-14.0) mmol/L BUN (7-18) mg/dL Creatinine (0.6-1.0) mg/dL Est Cr Clr Drug Dosing mL/min Estimated GFR (MDRD) (>60) Glucose (74-106) mg/dL Calcium (8.5-10.1) mg/dL Magnesium 1.6 L (1.8-2.4) mg/dL Total Bilirubin (0.2-1.0) mg/dL AST (15-37) U/L ALT (12-78) U/L Alkaline Phosphatase (46-116) U/L C-Reactive Protein 0.63 H (0.0-0.3) mg/dL Total Protein (6.4-8.2) g/dL Albumin (3.4-5.0) g/dL Globulin (2.3-3.5) g/dL Albumin/Globulin Ratio (1.2-2.2) Vitamin B12 516 (193-986) pg/ml Folate 10.7 (8.6-58.9) ng/ml TSH, Ultra Sensitive 3.859 H (0.358-3.740) uIU/mL Urine Color Urine Appearance Urine pH (4.5-8.0) Ur Specific [place] (1.008-1.030) Urine Protein (NEGATIVE) mg/dL Urine Glucose (UA) (NEGATIVE) mg/dL Urine Ketones (NEGATIVE) mg/dL Urine Occult Blood (NEGATIVE) Urine Nitrite (NEGATIVE) Urine Bilirubin (NEGATIVE) Urine Urobilinogen (NORMAL) mg/dL Ur Leukocyte Esterase (NEGATIVE) Urine RBC (0-5) Urine WBC (0-5) Ur Epithelial Cells Amorphous Sediment Urine Bacteria Urine Mucus Blood Type O NEGATIVE Gel Antibody Screen Negative 08/01/16 Range/Units 14:08 WBC (4.5-11.0) K/uL RBC (3.30-5.50) M/uL Hgb (12.0-15.0) g/dL Hct (36.0-48.0) % MCV (80-98) fL MCH (27-31) pg MCHC (32-36) % Plt Count (150-400) K/uL Neut % (Auto) (36-66) % Lymph % (Auto) (24-44) % [place] % (Auto) (2-6) % Eos % (Auto) (2-4) % Baso % (Auto) (0-1) % ESR (0-25) mm/hr Sodium (140-148) mmol/L Potassium (3.6-5.2) mmol/L Chloride (100-108) mmol/L Carbon Dioxide (21-32) mmol/L Anion Gap (5.0-14.0) mmol/L BUN (7-18) mg/dL Creatinine (0.6-1.0) mg/dL Est Cr Clr Drug Dosing mL/min Estimated GFR (MDRD) (>60) Glucose (74-106) mg/dL Calcium (8.5-10.1) mg/dL Magnesium (1.8-2.4) mg/dL Total Bilirubin (0.2-1.0) mg/dL AST (15-37) U/L ALT (12-78) U/L Alkaline Phosphatase (46-116) U/L C-Reactive Protein (0.0-0.3) mg/dL Total Protein (6.4-8.2) g/dL Albumin (3.4-5.0) g/dL Globulin (2.3-3.5) g/dL Albumin/Globulin Ratio (1.2-2.2) Vitamin B12 (193-986) pg/ml Folate (8.6-58.9) ng/ml TSH, Ultra Sensitive (0.358-3.740) uIU/mL Urine Color Yellow Urine Appearance Clear Urine pH 5.0 (4.5-8.0) Ur Specific [place] 1.015 (1.008-1.030) Urine Protein Negative (NEGATIVE) mg/dL Urine Glucose (UA) 1000 H (NEGATIVE) mg/dL Urine Ketones 15 H (NEGATIVE) mg/dL Urine Occult Blood Negative (NEGATIVE) Urine Nitrite Positive H (NEGATIVE) Urine Bilirubin Negative (NEGATIVE) Urine Urobilinogen Normal (NORMAL) mg/dL Ur Leukocyte Esterase Negative (NEGATIVE) Urine RBC 0-5 (0-5) Urine WBC 0-5 (0-5) Ur Epithelial Cells Moderate Amorphous Sediment Not seen Urine Bacteria Many Urine Mucus Rare Blood Type Gel Antibody Screen Med Orders - Current: Current Medications Amitriptyline HCl (Elavil) 25 mg PO BEDTIME [facility] Last Admin: 07/31/16 22:01 Dose: 25 mg Amlodipine Besylate (Norvasc) 5 mg PO DAILY [facility] Last Admin: 08/01/16 08:09 Dose: 5 mg Atorvastatin Calcium (Lipitor) 40 mg PO BEDTIME [facility] Last Admin: 07/31/16 22:00 Dose: 40 mg Cyclobenzaprine HCl (Flexeril) 10 mg PO TID [facility] Last Admin: 08/01/16 14:00 Dose: 10 mg Diclofenac Sodium (Voltaren 1% Gel) 0 gm TOP TID [facility] Last Admin: 08/01/16 15:24 Dose: Not Given Gabapentin (Neurontin) 900 mg PO 0900,1300 [facility] Last Admin: 08/01/16 12:53 Dose: 900 mg Gabapentin (Neurontin) 1,200 mg PO BEDTIME [facility] Last Admin: 07/31/16 22:15 Dose: 1,200 mg Gadoteridol (Prohance) 20 ml IV . DIRECTED PRN PRN Reason: RADIOLOGY EXAM Stop: 08/02/16 10:46 Last Admin: 08/01/16 11:13 Dose: 20 ml Glipizide (Glucotrol Xl) 10 mg PO DAILY [facility] Last Admin: 08/01/16 08:08 Dose: Not Given Hydrochlorothiazide (Hydrochlorothiazide) 12.5 mg PO DAILY [facility] Last Admin: 08/01/16 11:20 Dose: 12.5 mg Magnesium Sulfate 2 gm/ Premix 50 mls @ 25 mls/hr IV ONETIME ONE Stop: 08/01/16 18:26 Ibuprofen (Motrin) 800 mg PO TID [facility] Last Admin: 08/01/16 14:00 Dose: 800 mg Magnesium Oxide (Magnesium Oxide) 400 mg PO BID [facility] Last Admin: 08/01/16 11:19 Dose: 400 mg Melatonin (Melatonin) 9 mg PO BEDTIME [facility] Last Admin: 07/31/16 22:00 Dose: 9 mg Metformin HCl (Glucophage) 1,000 mg PO BIDMEALS [facility] Last Admin: 08/01/16 07:29 Dose: 1,000 mg Pantoprazole Sodium (Protonix) 40 mg PO ACBREAKFAST [facility] Last Admin: 08/01/16 07:30 Dose: 40 mg Potassium Chloride (Potassium Chloride) 10 meq PO DAILY [facility] Last Admin: 08/01/16 08:10 Dose: 10 meq Propranolol HCl (Inderal La) 80 mg PO BEDTIME [facility] Sertraline HCl (Zoloft) 100 mg PO BEDTIME [facility] Tramadol HCl (Ultram) 100 mg PO Q6H PRN PRN Reason: Pain Last Admin: 08/01/16 15:23 Dose: 100 mg Discontinued Medications Dexamethasone (Dexamethasone) 8 mg IVPUSH Q6H [facility] Last Admin: 08/01/16 08:21 Dose: 8 mg Diazepam (Valium.) 5 mg PO ASDIRECTED ONE Stop: 08/01/16 10:01 Last Admin: 08/01/16 10:30 Dose: Not Given Gabapentin (Neurontin) 300 mg PO BID [facility] Last Admin: 08/01/16 00:15 Dose: Not Given Propranolol HCl (Inderal La) 80 mg PO DAILY [facility] Last Admin: 08/01/16 08:09 Dose: Not Given Sertraline HCl (Zoloft) 100 mg PO DAILY [facility] Sertraline HCl (Zoloft) 100 mg PO ONETIME ONE Stop: 07/31/16 22:31 Last Admin: 07/31/16 22:16 Dose: 100 mg - Exam Quality Assessment: DVT prophylaxis General: alert, oriented, cooperative, moderate distress Lungs: Clear to auscultation, Normal respiratory effort Cardiovascular: Regular Rate, Regular Rhythm, No Murmurs Abdomen: bowel sounds present, soft, no tenderness, no distension Extremities: no edema Neurological: other (Persistent decrease in sensation left leg). No: sensation intact Consult PN Assessment/Plan Problem List Initiated/Reviewed/Updated: Yes My Orders last 24 hours: My Active Orders 07/31/16 21:00 Gabapentin [Neurontin] 1,200 mg PO BEDTIME 08/01/16 09:00 Gabapentin [Neurontin] 900 mg PO 0900,1300 08/01/16 09:30 Magnesium Oxide 400 mg PO BID 08/01/16 16:27 Magnesium Sulfate/Water [Magnesium Sulfate 2 GM in Water 50 ML] 2 gm Premix Bag 1 bag IV ONETIME Plan: ASSESSMENT AND RECOMMENDATIONS DECREASED SENSATION LEFT LEG SECONDARY TO SEVERE CERVICAL SPINAL STENOSIS- symptoms first occurred following a fall onto her buttocks after she slipped on the ice. Since then has developed progressive numbness and difficulty with ambulation involving the left leg. On evaluation has decreased sensation in the left leg and foot, including touch, pain and position sense. There is mild weakness which may also be a contributing factor. Reflexes were normal and symmetrical and Babinski's is normal. -Surgery planned for tomorrow with Dr. Tim Dorado
[2016-08-01] MEDS ORDERED: Magnesium Sulfate/Water 2 GM in Premix Bag 1 BAG IV ONE (17:00)
[2016-08-01] MEDS ORDERED: Zolpidem 5 MG Tab PO PRN (19:55)
[2016-08-01] MEDS ORDERED: ALPRAZolam 0.5 MG Tab PO ONE (19:55)
[2016-08-01] MEDS: Lactated Ringers 1,000 ML IV SCH (20:59)
[2016-08-01] MEDS: Amitriptyline 25 MG Tab PO SCH (21:01)
[2016-08-01] MEDS: Melatonin 3 MG Tab PO SCH (21:02)
[2016-08-01] MEDS: atorvaSTATin 20 MG Tab PO SCH (21:02)
[2016-08-01] MEDS: Sertraline 50 MG Tab PO SCH (21:07)
[2016-08-02] MEDS ORDERED: Povidone-Iodine 10% Soln 118.25 ML Bottle ONE (07:25)
[2016-08-02] MEDS ORDERED: Thrombin (Bovine) 5,000 Unit Kit ONE ×2 (07:25→13:00)
[2016-08-02] MEDS ORDERED: Succinylcholine/Normal Saline 200 MG/10 ML Syringe ONE (09:30)
[2016-08-02] MEDS ORDERED: Rocuronium 50 MG/5 ML Vial ONE (09:30)
[2016-08-02] MEDS ORDERED: Dexamethasone 4 MG/ML SDV ONE (09:30)
[2016-08-02] MEDS ORDERED: Ondansetron 4 MG/2 ML SDV ONE (09:30)
[2016-08-02] MEDS ORDERED: Propofol 200 MG/20 ML SDV ONE ×7 (09:30→16:30)
[2016-08-02] MEDS ORDERED: Midazolam 1 MG/ML 2 ML SDV ONE (09:31)
[2016-08-02] MEDS ORDERED: fentaNYL 250 MCG/5 ML SDV ONE ×6 (09:31→16:07)
[2016-08-02] MEDS ORDERED: Neostigmine Methylsulfate 1 MG/ML 5 ML Syringe ONE (09:32)
[2016-08-02] MEDS: ceFAZolin 2 GM in Premix Bag 1 BAG IV ONE ×2 (11:37→12:48)
[2016-08-02] MEDS: Tranexamic Acid 950 MG in Sodium Chloride 0.9% 50 ML IV SCH ×4 (11:38→19:24)
--- NOTE | 2016-08-02 11:48 | PCM.CONSN ---
- General Info Date of Service: 08/02/16 Functional Status: Reports: pain controlled - Review of Systems General: Denies: Fever, Weakness, Fatigue, Chills Pulmonary: Reports: no symptoms Cardiovascular: Reports: No Symptoms Gastrointestinal: Reports: No symptoms Systems Review Comment:: This patient has been stable over the past 24 hours, persistent numbness and decreased sensation in the left leg. Vital signs have been stable and she has remained afebrile. Plan is to proceed with cervical spinal fusion today with Dr. Tim Dorado - Patient Data Vitals - most recent: Last Vital Signs Temp 96.0 F 08/02/16 07:00 Pulse 74 08/02/16 07:00 Resp 18 08/02/16 07:00 BP 130/82 08/02/16 07:00 Pulse Ox 98 08/02/16 07:00 Weight - most recent: 210 lb 12.8 oz I&O - last 24 hours: Intake & Output 08/01/16 08/02/16 08/02/16 22:59 06:59 14:59 Intake Total 50 Output Total 1050 300 200 Balance -1000 -300 -200 Lab Results last 24 hrs: Laboratory Results - last 24 hr 08/01/16 08/01/16 Range/Units 12:45 14:08 Urine Color Yellow Urine Appearance Clear Urine pH 5.0 (4.5-8.0) Ur Specific [place] 1.015 (1.008-1.030) Urine Protein Negative (NEGATIVE) mg/dL Urine Glucose (UA) 1000 H (NEGATIVE) mg/dL Urine Ketones 15 H (NEGATIVE) mg/dL Urine Occult Blood Negative (NEGATIVE) Urine Nitrite Positive H (NEGATIVE) Urine Bilirubin Negative (NEGATIVE) Urine Urobilinogen Normal (NORMAL) mg/dL Ur Leukocyte Esterase Negative (NEGATIVE) Urine RBC 0-5 (0-5) Urine WBC 0-5 (0-5) Ur Epithelial Cells Moderate Amorphous Sediment Not seen Urine Bacteria Many Urine Mucus Rare Blood Type O NEGATIVE Gel Antibody Screen Negative Med Orders - Current: Current Medications Amitriptyline HCl (Elavil) 25 mg PO BEDTIME [facility] Last Admin: 08/01/16 21:01 Dose: 25 mg Amlodipine Besylate (Norvasc) 5 mg PO DAILY [facility] Last Admin: 08/01/16 08:09 Dose: 5 mg Atorvastatin Calcium (Lipitor) 40 mg PO BEDTIME [facility] Last Admin: 08/01/16 21:02 Dose: 40 mg Cyclobenzaprine HCl (Flexeril) 10 mg PO TID [facility] Last Admin: 08/01/16 21:05 Dose: 10 mg Diclofenac Sodium (Voltaren 1% Gel) 0 gm TOP TID [facility] Last Admin: 08/01/16 21:06 Dose: Not Given Gabapentin (Neurontin) 900 mg PO 0900,1300 [facility] Last Admin: 08/01/16 12:53 Dose: 900 mg Gabapentin (Neurontin) 1,200 mg PO BEDTIME [facility] Last Admin: 08/01/16 21:04 Dose: 1,200 mg Glipizide (Glucotrol Xl) 10 mg PO DAILY [facility] Last Admin: 08/01/16 08:08 Dose: Not Given Hydrochlorothiazide (Hydrochlorothiazide) 12.5 mg PO DAILY [facility] Last Admin: 08/01/16 11:20 Dose: 12.5 mg Lactated Ringer's (Ringers, Lactated) 1,000 mls @ 75 mls/hr IV ASDIRECTED [facility] Last Admin: 08/01/16 20:59 Dose: 75 mls/hr Tranexamic Acid 950 mg/ Sodium (Chloride) 59.5 mls @ 238 mls/hr IV Q3H [facility] Stop: 08/02/16 12:14 Ibuprofen (Motrin) 800 mg PO TID [facility] Last Admin: 08/01/16 21:02 Dose: 800 mg Magnesium Oxide (Magnesium Oxide) 400 mg PO BID [facility] Last Admin: 08/01/16 21:03 Dose: 400 mg Melatonin (Melatonin) 9 mg PO BEDTIME [facility] Last Admin: 08/01/16 21:02 Dose: 9 mg Metformin HCl (Glucophage) 1,000 mg PO BIDMEALS [facility] Last Admin: 08/01/16 17:23 Dose: 1,000 mg Pantoprazole Sodium (Protonix) 40 mg PO ACBREAKFAST [facility] Last Admin: 08/01/16 07:30 Dose: 40 mg Potassium Chloride (Potassium Chloride) 10 meq PO DAILY [facility] Last Admin: 08/01/16 08:10 Dose: 10 meq Propranolol HCl (Inderal La) 80 mg PO BEDTIME [facility] Last Admin: 08/01/16 21:05 Dose: 80 mg Sertraline HCl (Zoloft) 100 mg PO BEDTIME [facility] Last Admin: 08/01/16 21:07 Dose: 100 mg Tramadol HCl (Ultram) 100 mg PO Q6H PRN PRN Reason: Pain Last Admin: 08/01/16 21:21 Dose: 100 mg Zolpidem Tartrate (Ambien) 5 mg PO BEDTIME PRN PRN Reason: Insomnia Discontinued Medications Alprazolam (Xanax) 0.5 mg PO NOW ONE Stop: 08/01/16 19:56 Last Admin: 08/01/16 21:01 Dose: 0.5 mg Dexamethasone (Dexamethasone) 8 mg IVPUSH Q6H [facility] Last Admin: 08/01/16 08:21 Dose: 8 mg Dexamethasone (Dexamethasone) Confirm Administered Dose 4 mg .ROUTE .STK-MED ONE Stop: 08/02/16 09:31 Diazepam (Valium.) 5 mg PO ASDIRECTED ONE Stop: 08/01/16 10:01 Last Admin: 08/01/16 10:30 Dose: Not Given Fentanyl (Sublimaze) Confirm Administered Dose 500 mcg .ROUTE .STK-MED ONE Stop: 08/02/16 09:32 Fentanyl (Sublimaze) Confirm Administered Dose 250 mcg .ROUTE .STK-MED ONE Stop: 08/02/16 11:19 Gabapentin (Neurontin) 300 mg PO BID [facility] Last Admin: 08/01/16 00:15 Dose: Not Given Gadoteridol (Prohance) 20 ml IV . DIRECTED PRN PRN Reason: RADIOLOGY EXAM Stop: 08/02/16 10:46 Last Admin: 08/01/16 11:13 Dose: 20 ml Glycopyrrolate () Confirm Administered Dose 1 mg .ROUTE .STK-MED ONE Stop: 08/02/16 09:33 Magnesium Sulfate 2 gm/ Premix 50 mls @ 25 mls/hr IV ONETIME ONE Stop: 08/01/16 18:59 Last Admin: 08/01/16 17:20 Dose: 25 mls/hr Cefazolin Sodium/Dextrose 2 gm (/ Premix) 50 mls @ 100 mls/hr IV PREPRO ONE Stop: 08/02/16 08:59 Last Admin: 08/02/16 11:37 Dose: 100 mls/hr Midazolam HCl (Versed 1 Mg/Ml) Confirm Administered Dose 2 mg .ROUTE .STK-MED ONE Stop: 08/02/16 09:32 Neostigmine Methylsulfate (Neostigmine) Confirm Administered Dose 5 mg .ROUTE .STK-MED ONE Stop: 08/02/16 09:33 Ondansetron HCl (Zofran) Confirm Administered Dose 4 mg .ROUTE .STK-MED ONE Stop: 08/02/16 09:31 Povidone Iodine (Betadine 10% Soln) Confirm Administered Dose 1 ml .ROUTE .STK- MED ONE Stop: 08/02/16 07:26 Propofol (Diprivan 20 Ml) Confirm Administered Dose 200 mg .ROUTE .STK-MED ONE Stop: 08/02/16 09:31 Propofol (Diprivan 20 Ml) Confirm Administered Dose 600 mg .ROUTE .STK-MED ONE Stop: 08/02/16 11:19 Propranolol HCl (Inderal La) 80 mg PO DAILY [facility] Last Admin: 08/01/16 08:09 Dose: Not Given Rocuronium [place] (Zemuron) Confirm Administered Dose 50 mg .ROUTE .STK-MED ONE Stop: 08/02/16 09:31 Sertraline HCl (Zoloft) 100 mg PO DAILY [facility] Sertraline HCl (Zoloft) 100 mg PO ONETIME ONE Stop: 07/31/16 22:31 Last Admin: 07/31/16 22:16 Dose: 100 mg Succinylcholine Chloride (Succinylcholine In Ns Pf) Confirm Administered Dose 200 mg .ROUTE .STK-MED ONE Stop: 08/02/16 09:31 Thrombin (Thrombin-Jmi) Confirm Administered Dose 10,000 unit .ROUTE .STK-MED ONE Stop: 08/02/16 07:26 - Exam General: alert, oriented, cooperative, mild distress Lungs: Clear to auscultation, Normal respiratory effort Cardiovascular: Regular Rate, Regular Rhythm Abdomen: bowel sounds present, soft, no tenderness, no distension Extremities: no edema Consult PN Assessment/Plan Problem List Initiated/Reviewed/Updated: Yes Plan: ASSESSMENT AND RECOMMENDATIONS DECREASED SENSATION LEFT LEG SECONDARY TO SEVERE CERVICAL SPINAL STENOSIS- symptoms first occurred following a fall onto her buttocks after she slipped on the ice. Since then has developed progressive numbness and difficulty with ambulation involving the left leg. On evaluation has decreased sensation in the left leg and foot, including touch, pain and position sense. There is mild weakness which may also be a contributing factor. Reflexes were normal and symmetrical and Babinski's is normal. -Surgery planned for today with Dr. Tim Dorado
[2016-08-02] MEDS ORDERED: Bupivacaine 0.5%/EPINEPHrine 1:200,000 50 ML MDV ONE (11:51)
[2016-08-02] MEDS ORDERED: Bupivacaine 0.5%/EPINEPHrine 1:200,000 50 ML MDV INJECT ONE ×2 (11:54)
[2016-08-02] MEDS: Pantoprazole 40 MG Tab.CR PO SCH (12:47)
[2016-08-02] MEDS: metFORMIN 500 MG Tab PO SCH ×2 (12:48→20:38)
[2016-08-02] MEDS: Cyclobenzaprine 10 MG Tab PO SCH ×2 (12:49→14:06)
[2016-08-02] MEDS: glipiZIDE 5 MG Tab.ER PO SCH ×2 (12:50→22:34)
[2016-08-02] MEDS: Hydrochlorothiazide 12.5 MG Cap PO SCH (12:50)
[2016-08-02] MEDS: Magnesium Oxide 400 MG Tab PO SCH ×2 (12:50→21:37)
[2016-08-02] MEDS: Ibuprofen 800 MG Tab PO SCH ×3 (12:51→21:37)
[2016-08-02] MEDS: Gabapentin 300 MG Cap PO SCH ×3 (12:51→21:35)
[2016-08-02] MEDS: amLODIPine 5 MG Tab PO SCH (12:52)
[2016-08-02] MEDS: Potassium Chloride 10 MEQ Cap.ER PO SCH (12:53)
[2016-08-02] MEDS: Diclofenac Sodium 1% Gel 100 GM Tube TOP SCH ×3 (12:53→21:38)
[2016-08-02] MEDS ORDERED: Lactated Ringers 1,000 ML ONE ×3 (15:31→15:36)
[2016-08-02] MEDS ORDERED: fentaNYL 100 MCG/2 ML SDV IVPUSH PRN (17:03)
[2016-08-02] MEDS ORDERED: HYDROmorphone 1 MG/ML Syringe IV PRN (17:04)
[2016-08-02] MEDS ORDERED: hydrOXYzine HCl 50 MG/ML SDV IM PRN (17:05)
[2016-08-02] MEDS ORDERED: Meperidine PF 100 MG/ML Syringe IM PRN (17:06)
[2016-08-02] MEDS ORDERED: Morphine 4 MG/ML Syringe IVPUSH PRN (17:07)
[2016-08-02] MEDS ORDERED: Ondansetron 4 MG/2 ML SDV IVPUSH PRN ×2 (17:08→17:25)
[2016-08-02] MEDS ORDERED: Metoclopramide 10 MG/2 ML SDV IVPUSH PRN (17:10)
[2016-08-02] MEDS ORDERED: Labetalol 20 MG/4 ML Syringe IVPUSH PRN (17:11)
[2016-08-02] MEDS ORDERED: Sodium Chloride 0.9% 10 ML Syringe FLUSH PRN (17:25)
[2016-08-02] MEDS ORDERED: Naloxone 0.4 MG/ML SDV IVPUSH PRN (17:25)
[2016-08-02] MEDS ORDERED: Aluminum Hydroxide/Magnesium Hydroxide/Simethicone Susp 30 ML Cup PO PRN (17:25)
[2016-08-02] MEDS ORDERED: HYDROmorphone 1 MG/ML Syringe IVPUSH PRN (17:25)
[2016-08-02] MEDS ORDERED: Zolpidem 5 MG Tab PO PRN (17:25)
[2016-08-02] MEDS ORDERED: LORazepam 2 MG/ML MDV IVPUSH PRN (17:35)
[2016-08-02] MEDS: Dexamethasone 4 MG/ML SDV IVPUSH SCH (19:39)
[2016-08-02] MEDS: ceFAZolin 2 GM in Premix Bag 1 BAG IV SCH (19:40)
--- NOTE | 2016-08-02 20:55 | PCM.SN ---
- Free Text/Narrative Note: call from [address] [place] [address] Nursing request order for blood glucose testing a; diabetes type 2 p; order blood glucose bid, has metformin 1000mg bid and glucotrol xl 10mg daily ordered. may need to increase blood glucose to tid and hs with sliding scale coverage if blood glucose is elevated
[2016-08-02] MEDS: Acetaminophen/oxyCODONE 325-5 MG Tab PO PRN (21:08)
[2016-08-02] MEDS: Amitriptyline 25 MG Tab PO SCH (21:36)
[2016-08-02] MEDS: Propranolol 80 MG Cap.ER PO SCH (21:36)
[2016-08-02] MEDS: atorvaSTATin 20 MG Tab PO SCH (21:37)
[2016-08-02] MEDS: Melatonin 3 MG Tab PO SCH (21:37)
[2016-08-02] MEDS: Sertraline 50 MG Tab PO SCH (21:38)
[2016-08-03] MEDS: Acetaminophen/oxyCODONE 325-5 MG Tab PO PRN ×5 (00:31→20:16)
[2016-08-03] MEDS: Dexamethasone 4 MG/ML SDV IVPUSH SCH ×4 (00:31→17:12)
[2016-08-03] MEDS: ceFAZolin 2 GM in Premix Bag 1 BAG IV SCH (03:52)
[2016-08-03] MEDS: Pantoprazole 40 MG Tab.CR PO SCH (09:00)
[2016-08-03] MEDS: glipiZIDE 5 MG Tab.ER PO SCH (09:03)
[2016-08-03] MEDS: metFORMIN 500 MG Tab PO SCH ×2 (09:03→17:06)
[2016-08-03] MEDS: Magnesium Oxide 400 MG Tab PO SCH ×2 (09:04→20:05)
[2016-08-03] MEDS: Hydrochlorothiazide 12.5 MG Cap PO SCH (09:04)
[2016-08-03] MEDS: Ibuprofen 800 MG Tab PO SCH ×3 (09:04→20:06)
[2016-08-03] MEDS: Gabapentin 300 MG Cap PO SCH ×3 (09:06→20:07)
[2016-08-03] MEDS: Potassium Chloride 10 MEQ Cap.ER PO SCH (09:06)
[2016-08-03] MEDS: amLODIPine 5 MG Tab PO SCH (09:06)
[2016-08-03] MEDS: Diclofenac Sodium 1% Gel 100 GM Tube TOP SCH ×3 (09:07→20:08)
[2016-08-03] MEDS ORDERED: ceFAZolin 2 GM in Sodium Chloride 0.9% 50 ML IV ONE (12:00)
[2016-08-03] MEDS ORDERED: 50% Dextrose in Water 50 ML Syringe IV PRN (13:00)
[2016-08-03] MEDS ORDERED: Glucose Gel 15 GM in 37.5 GM Tube PO PRN (13:00)
--- NOTE | 2016-08-03 14:19 | OR ---
DATE OF PROCEDURE: 08/02/2016 PREOPERATIVE DIAGNOSIS: C3-4 and C7-T1 cervical stenosis and cervical thoracic stenosis as well as myelopathy. POSTOPERATIVE DIAGNOSIS: C3-4 and C7-T1 cervical stenosis and cervical thoracic stenosis as well as myelopathy. PROCEDURE: C3-4 posterior cervical fusion, C3-4 laminectomy, C6 through T3 posterior cervical fusion, and C7 through T1 laminectomy. ENGINEERING AND OPERATIONS DIRECTOR: Ce Green NP. ANESTHESIA: General endotracheal intubation. FLUID: Lactated Ringer solution. ESTIMATED BLOOD LOSS: 950 mL. COMPLICATIONS: None. SPECIMEN: None. DISCHARGE DISPOSITION: Stable to PACU. INSTRUMENTATION: Globus Ellipse at C3 3.5 x 12 mm lateral mass screws, at C4 3.5 x 12 mm lateral mass screws, at C6 3.5 x 14 lateral mass screws, at C7 3.5 x 12 mm lateral mass screws. At T1 3.5 x 14 mm Ellipse lateral mass screws, at T2 on the left is a 4.0 x 25 mm screw with Globus rods as well, which were transition rods at the cervicothoracic fusion and lateral mass rods at C3-4, and at T3 4.0 x 30 mm pedicle screws. Neuromonitoring was normal at baseline with the exception of motors reading less at the left lower extremity at the end of the procedures. Everything else was normal and left lower extremity motors had returned nearly to normal. HISTORY AND INDICATION FOR THE PROCEDURE: The patient was seen in the clinic on Sunday of this week. She had been suffering with two months of progressive increasing ataxia and was having a great deal of difficulty walking and balancing. She was not having extreme pain, but was having frequent falls. She was originally seen for a lumbar spine complaint. She was treated in [place]. I believe that she needed urgent treatment and therefore hospitalized her for IV dexamethasone overnight as well as obtaining MRIs on an urgent basis of the cervical thoracic as well as CT of the cervical spine. A lumbar MRI was normal, there was a small disc protrusion in the thoracic spine and lower thoracic spine. However, MRI imaging confirmed the above-mentioned diagnosis, a 3D recon view was obtained from the CT and preoperative planning was used with the CT. Risks and benefits of the procedure were explained to the patient and her family, and informed consent was obtained. DETAILS OF PROCEDURE: The patient was seen preoperatively by myself in the hospital room where the operative site was marked. She was also seen by the anesthesia staff there. She was brought to the operative suite by the anesthesia staff where general anesthesia was administered. Neuro monitoring leads were placed. Sterile Natarajan catheter was placed. She was then flipped into a prone position on a Toni table with a sheet on it. We then made sure all of her extremities were well padded and then tucked at her side with the sheet. We then appropriately taped her so that the fat on the back was not bulging over her operative site and then clipped her hair appropriately. We then prepped and draped the patient in a sterile manner. Then a time-out was called identifying the correct patient, procedure, site, and antibiotics in an appropriate period of time. A sterilely draped fluoroscopy unit was then brought in the AP view to stephanie the lower cervical incisions. Incision was made over the spinous processes of approximately C5 to T3. Bleeding was controlled with Bovie electrocautery as well as an Aquamantys unit. At times bleeding was controlled with bipolar electrocautery. Bleeding was appropriate, as there is increased vascularity expected during posterior cervical procedures. The Cerebellars were used for retraction, I then used dissection down to the fascia and then a Troy elevator and Bovie were used to dissect over these respective spinous process lamina, lateral masses, and transverse processes. We then inserted some shadow line blades and then confirmed our position. I then placed my lateral mass screws by placing them in the inferior proximal quadrant and then aiming out approximately 30 degrees anterior and cranial. I did this with a drill followed by a drill bit followed by confirmation with pedicle probe, followed by screw placement. For my thoracic pedicle screws, I used the method described by Judd of approaching the border of the lamina as well as the midpoint of the TP. For the left T3 pedicle screw, there was some difficulty of placement and I was able to use long ball to palpate the pedicle laterally to medial so that there was no medial breach. I did use a PediGuard for the pedicle screw placement. These all had good purchase. The method for pedicle screw placement was drilling a car pilot hole followed by a PediGuard followed by pedicle probe, followed by tap, followed by pedicle probe, followed by screw placement. All of the screws tested over 10 and we then proceeded with our laminectomy at C6-7, this was done by creating a trough laterally at the laminar edge and then carefully as so not to cause the cranial lamina to dive into the cord keeping it held in place with a Kerrison, pealed it back from the dura so never to touch the dura or use a Kerrison to remove any of lamina by biting it. This provided good decompression. I also created a small troughs in the anterior half of T1 after this had been accomplished, I then placed my rods which were transitional rods, as we had lateral mass screws to pedicle screws. We then placed our cap nuts on the rods and then finally did torque tightening. We then copiously irrigated with saline with Betadine infused irrigation followed by regular saline and then placed laminectomy from the graft site into the inner transverse space as well as along the lateral masses. We then placed a drain up the inferior portion of the wound and then closed the deep fascia with #2 Vicryl in an interlocking manner, followed by deep subcutaneous closure with 0 Vicryl in a running manner followed by 2-0 subcutaneous sutures, followed by Dermabond. We then focused on our attention using the lateral view to identify the C3-4 spinous process. I had made the incision for approximately the spinous process of C2 down to C5. This is a very small space and then controlled bleeding again with Bovie electrocautery as well as the Aquamantys unit, used Weitlaner retractor for initial retraction. I then went over the spinous processes as well as the lamina and down over the lateral masses of C3 and C4 and confirmed this on lateral fluoroscopy. We then used a Shadow-Line retractor again. I then placed my lateral mass screws in the same pattern as described previously in the lower cervical spine and then after that had been accomplished, I again made a trough at the edge of the lateral lamina and then again removed the lamina as same as previously described process. This went very well and then removed the superior lamina of L4 in the same manner. After this had been accomplished, we then placed our rods copiously irrigated with saline and then placed our graft. We then closed with #2 Vicryl interlocking manner followed by 0 Vicryl running sutures followed by 2-0 Vicryl subcutaneous sutures, followed by Dermabond. We placed Betadine-soaked Adaptic over our Dermabond followed by 4x4s and a sterile dressing. The patient was then flipped into her hospital bed in a supine position. Neuromonitoring leads were removed, again after all of our instrumentation was in place, we did run our motors, which were improved in the left lower extremity. Please also note that we did take final films just prior to closure of our 2nd incision confirming good placement of our screws. The patient was then taken to the PACU in stable condition. Joseph Dorado DO /[id number]
[2016-08-03] MEDS: Lactated Ringers 1,000 ML IV SCH (14:30)
--- NOTE | 2016-08-03 15:28 | PCM.PN ---
- General Info Date of Service: 08/03/16 Functional Status: Reports: tolerating diet, ambulating - Review of Systems General: Denies: Fever, Chills Pulmonary: Reports: no symptoms Cardiovascular: Reports: No Symptoms Gastrointestinal: Reports: No symptoms Musculoskeletal: Reports: neck pain Systems Review Comment:: This patient has done well since surgery yesterday afternoon. Vital signs have been stable and she has remained afebrile. Currently denies chest pain, shortness of breath, abdominal pain, or nausea and vomiting. Blood sugars have trended somewhat high likely secondary to current therapy with dexamethasone. - Patient Data Vitals - most recent: Last Vital Signs Temp 98.5 F 08/03/16 11:49 Pulse 92 08/03/16 11:49 Resp 16 08/03/16 11:49 BP 158/82 H 08/03/16 11:49 Pulse Ox 97 08/03/16 11:49 Weight - most recent: 210 lb 12.8 oz I&O - last 24 hours: Intake & Output 08/03/16 08/03/16 08/03/16 06:59 14:59 22:59 Intake Total 1613 850 Output Total 1010 1490 Balance 603 -640 Lab Results last 24 hrs: Laboratory Results - last 24 hr 08/03/16 08/03/16 08/03/16 Range/Units 10:03 10:05 12:07 WBC 18.0 H (4.5-11.0) K/uL RBC 3.77 (3.30-5.50) M/uL Hgb 11.1 L (12.0-15.0) g/dL Hct 34.1 L (36.0-48.0) % MCV 91 (80-98) fL MCH 29 (27-31) pg MCHC 33 (32-36) % Plt Count 338 (150-400) K/uL Neut % (Auto) 90 H (36-66) % Lymph % (Auto) 8 L (24-44) % [place] % (Auto) 2 (2-6) % Eos % (Auto) 0 L (2-4) % Baso % (Auto) 0 (0-1) % Sodium 137 L (140-148) mmol/L Potassium 4.8 (3.6-5.2) mmol/L Chloride 101 (100-108) mmol/L Carbon Dioxide 27 (21-32) mmol/L Anion Gap 9.3 (5.0-14.0) mmol/L BUN 16 (7-18) mg/dL Creatinine 0.9 (0.6-1.0) mg/dL Est Cr Clr Drug Dosing 66.01 mL/min Estimated GFR (MDRD) > 60 (>60) Glucose 288 H (74-106) mg/dL Calcium 8.8 (8.5-10.1) mg/dL Magnesium 1.8 (1.8-2.4) mg/dL Med Orders - Current: Current Medications Al Hydroxide/Mg Hydroxide (Mag-Al Plus) 30 ml PO Q4H PRN PRN Reason: Indigestion Amitriptyline HCl (Elavil) 25 mg PO BEDTIME [facility] Last Admin: 08/02/16 21:36 Dose: 25 mg Amlodipine Besylate (Norvasc) 5 mg PO DAILY [facility] Last Admin: 08/03/16 09:06 Dose: 5 mg Atorvastatin Calcium (Lipitor) 40 mg PO BEDTIME [facility] Last Admin: 08/02/16 21:37 Dose: 40 mg Dexamethasone (Dexamethasone) 8 mg IVPUSH Q6H [facility] Stop: 08/03/16 18:01 Last Admin: 08/03/16 11:51 Dose: 8 mg Dextrose (Glutose 15) 15 gm PO ASDIRECTED PRN PRN Reason: Hypoglycemia Dextrose/Water (Dextrose 50% In Water) 50 ml IV ASDIRECTED PRN PRN Reason: Hypoglycemia Diazepam (Valium) 5 mg IVPUSH Q6H PRN PRN Reason: Spasms Last Admin: 08/02/16 19:39 Dose: 5 mg Diclofenac Sodium (Voltaren 1% Gel) 0 gm TOP TID [facility] Last Admin: 08/03/16 13:51 Dose: Not Given Gabapentin (Neurontin) 900 mg PO 0900,1300 [facility] Last Admin: 08/03/16 13:25 Dose: 900 mg Gabapentin (Neurontin) 1,200 mg PO BEDTIME [facility] Last Admin: 08/02/16 21:35 Dose: 1,200 mg Glipizide (Glucotrol Xl) 10 mg PO DAILY [facility] Last Admin: 08/03/16 09:03 Dose: 10 mg Hydrochlorothiazide (Hydrochlorothiazide) 12.5 mg PO DAILY [facility] Last Admin: 08/03/16 09:04 Dose: 12.5 mg Hydromorphone HCl (Dilaudid) 1 mg IVPUSH Q2H PRN PRN Reason: Pain Lactated Ringer's (Ringers, Lactated) 1,000 mls @ 75 mls/hr IV ASDIRECTED [facility] Last Admin: 08/03/16 14:30 Dose: 75 mls/hr Ibuprofen (Motrin) 800 mg PO TID [facility] Last Admin: 08/03/16 13:50 Dose: 800 mg Insulin Aspart (Novolog) 0 unit SUBCUT ASDIRECTED [facility] PRN Reason: Protocol Lorazepam (Ativan) 0 mg IVPUSH Q6H PRN PRN Reason: Anxiety Magnesium Hydroxide (Milk Of Magnesia) 30 ml PO BID PRN PRN Reason: Constipation Magnesium Oxide (Magnesium Oxide) 400 mg PO BID [facility] Last Admin: 08/03/16 09:04 Dose: 400 mg Melatonin (Melatonin) 9 mg PO BEDTIME [facility] Last Admin: 08/02/16 21:37 Dose: 9 mg Metformin HCl (Glucophage) 1,000 mg PO BIDMEALS [facility] Last Admin: 08/03/16 09:03 Dose: 1,000 mg Ondansetron HCl (Zofran) 8 mg IVPUSH Q4H PRN PRN Reason: Nausea/Vomiting Oxycodone/Acetaminophen (Percocet 325-5 Mg) 2 tab PO Q4H PRN PRN Reason: Pain Last Admin: 08/03/16 14:28 Dose: 2 tab Pantoprazole Sodium (Protonix) 40 mg PO ACBREAKFAST [facility] Last Admin: 08/03/16 09:00 Dose: 40 mg Potassium Chloride (Potassium Chloride) 10 meq PO DAILY [facility] Last Admin: 08/03/16 09:06 Dose: 10 meq Propranolol HCl (Inderal La) 80 mg PO BEDTIME [facility] Last Admin: 08/02/16 21:36 Dose: 80 mg Senna (Senna) 8.6 mg PO BID PRN PRN Reason: Constipation Sertraline HCl (Zoloft) 100 mg PO BEDTIME [facility] Last Admin: 08/02/16 21:38 Dose: 100 mg Sodium Chloride (Saline Flush) 10 ml FLUSH ASDIRECTED PRN PRN Reason: Keep Vein Open Tramadol HCl (Ultram) 100 mg PO Q6H PRN PRN Reason: Pain Last Admin: 08/01/16 21:21 Dose: 100 mg Zolpidem Tartrate (Ambien) 5 mg PO BEDTIME PRN PRN Reason: Insomnia Discontinued Medications Alprazolam (Xanax) 0.5 mg PO NOW ONE Stop: 08/01/16 19:56 Last Admin: 08/01/16 21:01 Dose: 0.5 mg Bupivacaine HCl/Epinephrine Bitart (Marcaine 0.5%/Epinephrine 1:200,000) Confirm Administered Dose 50 ml .ROUTE .STK-MED ONE Stop: 08/02/16 11:52 Bupivacaine HCl/Epinephrine Bitart (Marcaine 0.5%/Epinephrine 1:200,000) 40 ml INJECT .STK-MED ONE Stop: 08/02/16 11:55 Last Admin: 08/02/16 11:54 Dose: 40 ml Cyclobenzaprine HCl (Flexeril) 10 mg PO TID [facility] Last Admin: 08/02/16 14:06 Dose: Not Given Dexamethasone (Dexamethasone) 8 mg IVPUSH Q6H [facility] Last Admin: 08/01/16 08:21 Dose: 8 mg Dexamethasone (Dexamethasone) Confirm Administered Dose 4 mg .ROUTE .STK-MED ONE Stop: 08/02/16 09:31 Diazepam (Valium.) 5 mg PO ASDIRECTED ONE Stop: 08/01/16 10:01 Last Admin: 08/01/16 10:30 Dose: Not Given Fentanyl (Sublimaze) Confirm Administered Dose 500 mcg .ROUTE .STK-MED ONE Stop: 08/02/16 09:32 Fentanyl (Sublimaze) Confirm Administered Dose 250 mcg .ROUTE .STK-MED ONE Stop: 08/02/16 11:19 Fentanyl (Sublimaze) Confirm Administered Dose 250 mcg .ROUTE .STK-MED ONE Stop: 08/02/16 12:33 Fentanyl (Sublimaze) Confirm Administered Dose 250 mcg .ROUTE .STK-MED ONE Stop: 08/02/16 14:23 Fentanyl (Sublimaze) Confirm Administered Dose 250 mcg .ROUTE .STK-MED ONE Stop: 08/02/16 15:45 Fentanyl (Sublimaze) Confirm Administered Dose 250 mcg .ROUTE .STK-MED ONE Stop: 08/02/16 16:08 Fentanyl (Sublimaze) 50 - 100 mcg IVPUSH ASDIRECTED PRN PRN Reason: PAIN Stop: 08/02/16 19:00 Gabapentin (Neurontin) 300 mg PO BID [facility] Last Admin: 08/01/16 00:15 Dose: Not Given Gadoteridol (Prohance) 20 ml IV . DIRECTED PRN PRN Reason: RADIOLOGY EXAM Stop: 08/02/16 10:46 Last Admin: 08/01/16 11:13 Dose: 20 ml Glycopyrrolate () Confirm Administered Dose 1 mg .ROUTE .STK-MED ONE Stop: 08/02/16 09:33 Hydromorphone HCl (Dilaudid) 0.5 - 1 mg IV ASDIRECTED PRN PRN Reason: PAIN Stop: 08/02/16 19:00 Last Admin: 08/02/16 18:52 Dose: 1 mg Hydroxyzine HCl (Vistaril) 50 - 100 mg IM ASDIRECTED PRN PRN Reason: PAIN Stop: 08/02/16 19:00 Magnesium Sulfate 2 gm/ Premix 50 mls @ 25 mls/hr IV ONETIME ONE Stop: 08/01/16 18:59 Last Admin: 08/01/16 17:20 Dose: 25 mls/hr Cefazolin Sodium/Dextrose 2 gm (/ Premix) 50 mls @ 100 mls/hr IV PREPRO ONE Stop: 08/02/16 08:59 Last Admin: 08/02/16 12:48 Dose: Not Given Tranexamic Acid 950 mg/ Sodium (Chloride) 59.5 mls @ 238 mls/hr IV Q3H [facility] Stop: 08/02/16 12:14 Last Admin: 08/02/16 19:24 Dose: Not Given Lactated Ringer's (Ringers, Lactated) Confirm Administered Dose 1,000 mls @ as directed .ROUTE .STK-MED ONE Stop: 08/02/16 15:32 Lactated Ringer's (Ringers, Lactated) Confirm Administered Dose 1,000 mls @ as directed .ROUTE .STK-MED ONE Stop: 08/02/16 15:32 Lactated Ringer's (Ringers, Lactated) Confirm Administered Dose 1,000 mls @ as directed .ROUTE .STK-MED ONE Stop: 08/02/16 15:37 Cefazolin Sodium/Dextrose 2 gm (/ Premix) 50 mls @ 100 mls/hr IV Q8H [facility] Stop: 08/03/16 12:29 Last Admin: 08/03/16 03:52 Dose: 100 mls/hr Cefazolin Sodium 2 gm/ Sodium (Chloride) 50 mls @ 100 mls/hr IV ONETIME ONE Stop: 08/03/16 12:29 Last Admin: 08/03/16 12:02 Dose: 100 mls/hr Labetalol HCl (Normodyne) 5 - 15 mg IVPUSH ASDIRECTED PRN PRN Reason: BP Stop: 08/02/16 19:00 Meperidine HCl (Demerol) 100 mg IM ASDIRECTED PRN PRN Reason: PAIN Stop: 08/02/16 19:00 Metoclopramide HCl (Reglan) 10 mg IVPUSH ASDIRECTED PRN PRN Reason: NAUSEA Stop: 08/02/16 19:00 Midazolam HCl (Versed 1 Mg/Ml) Confirm Administered Dose 2 mg .ROUTE .STK-MED ONE Stop: 08/02/16 09:32 Morphine Sulfate (Morphine) 1 - 4 mg IVPUSH ASDIRECTED PRN PRN Reason: PAIN Stop: 08/02/16 19:00 Naloxone HCl (Narcan) 0.2 mg IVPUSH ONETIME PRN PRN Reason: Oversedation Stop: 08/02/16 17:26 Neostigmine Methylsulfate (Neostigmine) Confirm Administered Dose 5 mg .ROUTE .STK-MED ONE Stop: 08/02/16 09:33 Ondansetron HCl (Zofran) Confirm Administered Dose 4 mg .ROUTE .STK-MED ONE Stop: 08/02/16 09:31 Ondansetron HCl (Zofran) 4 mg IVPUSH ASDIRECTED PRN PRN Reason: NAUSEA Stop: 08/02/16 19:00 Povidone Iodine (Betadine 10% Soln) Confirm Administered Dose 1 ml .ROUTE .STK- MED ONE Stop: 08/02/16 07:26 Last Admin: 08/02/16 11:51 Dose: 25 ml Propofol (Diprivan 20 Ml) Confirm Administered Dose 200 mg .ROUTE .STK-MED ONE Stop: 08/02/16 09:31 Propofol (Diprivan 20 Ml) Confirm Administered Dose 600 mg .ROUTE .STK-MED ONE Stop: 08/02/16 11:19 Propofol (Diprivan 20 Ml) Confirm Administered Dose 600 mg .ROUTE .STK-MED ONE Stop: 08/02/16 12:33 Propofol (Diprivan 20 Ml) Confirm Administered Dose 600 mg .ROUTE .STK-MED ONE Stop: 08/02/16 13:17 Propofol (Diprivan 20 Ml) Confirm Administered Dose 600 mg .ROUTE .STK-MED ONE Stop: 08/02/16 14:21 Propofol (Diprivan 20 Ml) Confirm Administered Dose 400 mg .ROUTE .STK-MED ONE Stop: 08/02/16 15:13 Propofol (Diprivan 20 Ml) Confirm Administered Dose 600 mg .ROUTE .STK-MED ONE Stop: 08/02/16 16:31 Propranolol HCl (Inderal La) 80 mg PO DAILY [facility] Last Admin: 08/01/16 08:09 Dose: Not Given Rocuronium [place] (Zemuron) Confirm Administered Dose 50 mg .ROUTE .STK-MED ONE Stop: 08/02/16 09:31 Sertraline HCl (Zoloft) 100 mg PO DAILY [facility] Sertraline HCl (Zoloft) 100 mg PO ONETIME ONE Stop: 07/31/16 22:31 Last Admin: 07/31/16 22:16 Dose: 100 mg Succinylcholine Chloride (Succinylcholine In Ns Pf) Confirm Administered Dose 200 mg .ROUTE .STK-MED ONE Stop: 08/02/16 09:31 Thrombin (Thrombin-Jmi) Confirm Administered Dose 10,000 unit .ROUTE .STK-MED ONE Stop: 08/02/16 07:26 Last Admin: 08/02/16 11:50 Dose: 10,000 unit Thrombin (Thrombin-Jmi) Confirm Administered Dose 5,000 unit .ROUTE .STK-MED ONE Stop: 08/02/16 13:01 Last Admin: 08/02/16 13:40 Dose: 5,000 unit Zolpidem Tartrate (Ambien) 5 mg PO BEDTIME PRN PRN Reason: Sleep - Exam Quality Assessment: DVT prophylaxis General: alert, oriented, cooperative, mild distress Lungs: Clear to auscultation, Normal respiratory effort Cardiovascular: Regular Rate, Regular Rhythm, No Murmurs Abdomen: bowel sounds present, soft, no tenderness, no distension - Problem List Review Problem List Initiated/Reviewed/Updated: Yes - My Orders Last 24 Hours: My Active Orders 08/03/16 13:00 Blood Glucose Check, Bedside [RC] QIDACANDBED Diabetes Education [RC] Click to Edit Notify Provider [RC] PRN Dextrose 50% in Water 50 ml IV ASDIRECTED PRN Dextrose [Glutose 15] 15 gm PO ASDIRECTED PRN Insulin Aspart [NovoLOG] See Protocol SUBCUT ASDIRECTED 08/03/16 13:01 Communication Order [RC] ASDIRECTED 08/03/16 16:30 GLUCOSE POC LAB TO COLLECT [POC] QIDACANDBED 08/03/16 21:00 GLUCOSE POC LAB TO COLLECT [POC] QIDACANDBED 08/04/16 07:30 GLUCOSE POC LAB TO COLLECT [POC] QIDACANDBED 08/04/16 11:30 GLUCOSE POC LAB TO COLLECT [POC] QIDACANDBED 08/04/16 16:30 GLUCOSE POC LAB TO COLLECT [POC] QIDACANDBED 08/04/16 21:00 GLUCOSE POC LAB TO COLLECT [POC] QIDACANDBED 08/05/16 07:30 GLUCOSE POC LAB TO COLLECT [POC] QIDACANDBED 08/05/16 11:30 GLUCOSE POC LAB TO COLLECT [POC] QIDACANDBED 08/05/16 16:30 GLUCOSE POC LAB TO COLLECT [POC] QIDACANDBED 08/05/16 21:00 GLUCOSE POC LAB TO COLLECT [POC] QIDACANDBED 08/06/16 07:30 GLUCOSE POC LAB TO COLLECT [POC] QIDACANDBED 08/06/16 11:30 GLUCOSE POC LAB TO COLLECT [POC] QIDACANDBED 08/06/16 16:30 GLUCOSE POC LAB TO COLLECT [POC] QIDACANDBED 08/06/16 21:00 GLUCOSE POC LAB TO COLLECT [POC] QIDACANDBED 08/07/16 07:30 GLUCOSE POC LAB TO COLLECT [POC] QIDACANDBED 08/07/16 11:30 GLUCOSE POC LAB TO COLLECT [POC] QIDACANDBED 08/07/16 16:30 GLUCOSE POC LAB TO COLLECT [POC] QIDACANDBED 08/07/16 21:00 GLUCOSE POC LAB TO COLLECT [POC] QIDACANDBED 08/08/16 07:30 GLUCOSE POC LAB TO COLLECT [POC] QIDACANDBED 08/08/16 11:30 GLUCOSE POC LAB TO COLLECT [POC] QIDACANDBED 08/08/16 16:30 GLUCOSE POC LAB TO COLLECT [POC] QIDACANDBED 08/08/16 21:00 GLUCOSE POC LAB TO COLLECT [POC] QIDACANDBED - Plan Plan:: ASSESSMENT AND RECOMMENDATIONS DECREASED SENSATION LEFT LEG SECONDARY TO SEVERE CERVICAL SPINAL STENOSIS- stable following surgery yesterday -Surgery planned for today with Dr. Tim Dorado TYPE 2 DIABETES MELLITUS-blood sugars have been elevated since surgery, likely secondary to dexamethasone -4 times a day glucometers -Continue oral hypoglycemic therapy -Low-dose sliding scale NovoLog
[2016-08-03] MEDS: Insulin Aspart 100 Units/ML 3 ML Pen SUBCUT SCH ×2 (17:05→21:19)
[2016-08-03] MEDS: Amitriptyline 25 MG Tab PO SCH (20:04)
[2016-08-03] MEDS: Propranolol 80 MG Cap.ER PO SCH (20:05)
[2016-08-03] MEDS: atorvaSTATin 20 MG Tab PO SCH (20:05)
[2016-08-03] MEDS: Melatonin 3 MG Tab PO SCH (20:06)
[2016-08-03] MEDS: Sertraline 50 MG Tab PO SCH (20:08)
[2016-08-04] MEDS: Acetaminophen/oxyCODONE 325-5 MG Tab PO PRN ×4 (02:55→22:24)
[2016-08-04] MEDS: Lactated Ringers 1,000 ML IV SCH ×2 (03:15→16:50)
[2016-08-04] MEDS: glipiZIDE 5 MG Tab.ER PO SCH (08:27)
[2016-08-04] MEDS: metFORMIN 500 MG Tab PO SCH ×2 (08:27→16:54)
[2016-08-04] MEDS: Pantoprazole 40 MG Tab.CR PO SCH (08:27)
[2016-08-04] MEDS: Insulin Aspart 100 Units/ML 3 ML Pen SUBCUT SCH ×4 (08:28→21:37)
[2016-08-04] MEDS: Magnesium Oxide 400 MG Tab PO SCH ×2 (09:18→21:48)
[2016-08-04] MEDS: Hydrochlorothiazide 12.5 MG Cap PO SCH (09:18)
[2016-08-04] MEDS: Ibuprofen 800 MG Tab PO SCH ×3 (09:18→21:49)
[2016-08-04] MEDS: Gabapentin 300 MG Cap PO SCH ×3 (09:19→21:49)
[2016-08-04] MEDS: amLODIPine 5 MG Tab PO SCH (09:19)
[2016-08-04] MEDS: Diclofenac Sodium 1% Gel 100 GM Tube TOP SCH ×3 (09:20→21:50)
[2016-08-04] MEDS: Potassium Chloride 10 MEQ Cap.ER PO SCH (09:20)
--- NOTE | 2016-08-04 11:58 | PCM.PN ---
- General Info Date of Service: 08/04/16 Functional Status: Reports: pain controlled, tolerating diet, ambulating, urinating - Review of Systems General: Denies: Fever, Chills Pulmonary: Reports: no symptoms Cardiovascular: Reports: No Symptoms Gastrointestinal: Reports: No symptoms Systems Review Comment:: This patient has been stable since yesterday, pain control has been adequate and she has been able to ambulate short distances in the [place]. Vital signs have been stable and she has remained afebrile. Blood glucose levels continue to run elevated secondary to her underlying type 2 diabetes mellitus and current therapy with dexamethasone. - Patient Data Vitals - most recent: Last Vital Signs Temp 97.2 F 08/04/16 07:15 Pulse 81 08/04/16 07:15 Resp 16 08/04/16 07:15 BP 134/70 08/04/16 09:19 Pulse Ox 95 08/04/16 09:00 Weight - most recent: 210 lb 12.8 oz I&O - last 24 hours: Intake & Output 08/03/16 08/04/16 08/04/16 22:59 06:59 14:59 Intake Total 889 240 Output Total 860 20 570 Balance 29 220 -570 Lab Results last 24 hrs: Laboratory Results - last 24 hr 08/03/16 08/04/16 08/04/16 Range/Units 12:07 08:18 08:18 WBC 19.3 H (4.5-11.0) K/uL RBC 3.35 (3.30-5.50) M/uL Hgb 9.8 L (12.0-15.0) g/dL Hct 30.2 L (36.0-48.0) % MCV 90 (80-98) fL MCH 29 (27-31) pg MCHC 33 (32-36) % Plt Count 323 (150-400) K/uL Neut % (Auto) 67 H (36-66) % Lymph % (Auto) 21 L (24-44) % Zavala % (Auto) 12 H (2-6) % Eos % (Auto) 0 L (2-4) % Baso % (Auto) 0 (0-1) % Sodium 140 (140-148) mmol/L Potassium 3.8 (3.6-5.2) mmol/L Chloride 102 (100-108) mmol/L Carbon Dioxide 31 (21-32) mmol/L Anion Gap 7.1 (5.0-14.0) mmol/L BUN 13 (7-18) mg/dL Creatinine 0.8 (0.6-1.0) mg/dL Est Cr Clr Drug Dosing 74.26 mL/min Estimated GFR (MDRD) > 60 (>60) Glucose 251 H (74-106) mg/dL Calcium 8.5 (8.5-10.1) mg/dL Magnesium 1.8 (1.8-2.4) mg/dL Med Orders - Current: Current Medications Al Hydroxide/Mg Hydroxide (Mag-Al Plus) 30 ml PO Q4H PRN PRN Reason: Indigestion Amitriptyline HCl (Elavil) 25 mg PO BEDTIME [facility] Last Admin: 08/03/16 20:04 Dose: 25 mg Amlodipine Besylate (Norvasc) 5 mg PO DAILY [facility] Last Admin: 08/04/16 09:19 Dose: 5 mg Atorvastatin Calcium (Lipitor) 40 mg PO BEDTIME [facility] Last Admin: 08/03/16 20:05 Dose: 40 mg Dextrose (Glutose 15) 15 gm PO ASDIRECTED PRN PRN Reason: Hypoglycemia Dextrose/Water (Dextrose 50% In Water) 50 ml IV ASDIRECTED PRN PRN Reason: Hypoglycemia Diazepam (Valium) 5 mg IVPUSH Q6H PRN PRN Reason: Spasms Last Admin: 08/04/16 03:13 Dose: 5 mg Diclofenac Sodium (Voltaren 1% Gel) 0 gm TOP TID [facility] Last Admin: 08/04/16 09:20 Dose: Not Given Gabapentin (Neurontin) 900 mg PO 0900,1300 [facility] Last Admin: 08/04/16 09:19 Dose: 900 mg Gabapentin (Neurontin) 1,200 mg PO BEDTIME [facility] Last Admin: 08/03/16 20:07 Dose: 1,200 mg Glipizide (Glucotrol Xl) 10 mg PO DAILY [facility] Last Admin: 08/04/16 08:27 Dose: 10 mg Hydrochlorothiazide (Hydrochlorothiazide) 12.5 mg PO DAILY [facility] Last Admin: 08/04/16 09:18 Dose: 12.5 mg Hydromorphone HCl (Dilaudid) 1 mg IVPUSH Q2H PRN PRN Reason: Pain Lactated Ringer's (Ringers, Lactated) 1,000 mls @ 75 mls/hr IV ASDIRECTED [facility] Last Admin: 08/04/16 03:15 Dose: 75 mls/hr Ibuprofen (Motrin) 800 mg PO TID [facility] Last Admin: 08/04/16 09:18 Dose: 800 mg Insulin Aspart (Novolog) 0 unit SUBCUT ASDIRECTED [facility] PRN Reason: Protocol Lorazepam (Ativan) 0 mg IVPUSH Q6H PRN PRN Reason: Anxiety Magnesium Hydroxide (Milk Of Magnesia) 30 ml PO BID PRN PRN Reason: Constipation Magnesium Oxide (Magnesium Oxide) 400 mg PO BID [facility] Last Admin: 08/04/16 09:18 Dose: 400 mg Melatonin (Melatonin) 9 mg PO BEDTIME [facility] Last Admin: 08/03/16 20:06 Dose: 9 mg Metformin HCl (Glucophage) 1,000 mg PO BIDMEALS [facility] Last Admin: 08/04/16 08:27 Dose: 1,000 mg Ondansetron HCl (Zofran) 8 mg IVPUSH Q4H PRN PRN Reason: Nausea/Vomiting Oxycodone/Acetaminophen (Percocet 325-5 Mg) 2 tab PO Q4H PRN PRN Reason: Pain Last Admin: 08/04/16 08:39 Dose: 2 tab Pantoprazole Sodium (Protonix) 40 mg PO ACBREAKFAST [facility] Last Admin: 08/04/16 08:27 Dose: 40 mg Potassium Chloride (Potassium Chloride) 10 meq PO DAILY [facility] Last Admin: 08/04/16 09:20 Dose: 10 meq Propranolol HCl (Inderal La) 80 mg PO BEDTIME [facility] Last Admin: 08/03/16 20:05 Dose: 80 mg Senna (Senna) 8.6 mg PO BID PRN PRN Reason: Constipation Sertraline HCl (Zoloft) 100 mg PO BEDTIME [facility] Last Admin: 08/03/16 20:08 Dose: 100 mg Sodium Chloride (Saline Flush) 10 ml FLUSH ASDIRECTED PRN PRN Reason: Keep Vein Open Tramadol HCl (Ultram) 100 mg PO Q6H PRN PRN Reason: Pain Last Admin: 08/01/16 21:21 Dose: 100 mg Zolpidem Tartrate (Ambien) 5 mg PO BEDTIME PRN PRN Reason: Insomnia Discontinued Medications Alprazolam (Xanax) 0.5 mg PO NOW ONE Stop: 08/01/16 19:56 Last Admin: 08/01/16 21:01 Dose: 0.5 mg Bupivacaine HCl/Epinephrine Bitart (Marcaine 0.5%/Epinephrine 1:200,000) Confirm Administered Dose 50 ml .ROUTE .STK-MED ONE Stop: 08/02/16 11:52 Bupivacaine HCl/Epinephrine Bitart (Marcaine 0.5%/Epinephrine 1:200,000) 40 ml INJECT .STK-MED ONE Stop: 08/02/16 11:55 Last Admin: 08/02/16 11:54 Dose: 40 ml Cyclobenzaprine HCl (Flexeril) 10 mg PO TID [facility] Last Admin: 08/02/16 14:06 Dose: Not Given Dexamethasone (Dexamethasone) 8 mg IVPUSH Q6H [facility] Last Admin: 08/01/16 08:21 Dose: 8 mg Dexamethasone (Dexamethasone) Confirm Administered Dose 4 mg .ROUTE .STK-MED ONE Stop: 08/02/16 09:31 Dexamethasone (Dexamethasone) 8 mg IVPUSH Q6H [facility] Stop: 08/03/16 18:01 Last Admin: 08/03/16 17:12 Dose: 8 mg Diazepam (Valium.) 5 mg PO ASDIRECTED ONE Stop: 08/01/16 10:01 Last Admin: 08/01/16 10:30 Dose: Not Given Fentanyl (Sublimaze) Confirm Administered Dose 500 mcg .ROUTE .STK-MED ONE Stop: 08/02/16 09:32 Fentanyl (Sublimaze) Confirm Administered Dose 250 mcg .ROUTE .STK-MED ONE Stop: 08/02/16 11:19 Fentanyl (Sublimaze) Confirm Administered Dose 250 mcg .ROUTE .STK-MED ONE Stop: 08/02/16 12:33 Fentanyl (Sublimaze) Confirm Administered Dose 250 mcg .ROUTE .STK-MED ONE Stop: 08/02/16 14:23 Fentanyl (Sublimaze) Confirm Administered Dose 250 mcg .ROUTE .STK-MED ONE Stop: 08/02/16 15:45 Fentanyl (Sublimaze) Confirm Administered Dose 250 mcg .ROUTE .STK-MED ONE Stop: 08/02/16 16:08 Fentanyl (Sublimaze) 50 - 100 mcg IVPUSH ASDIRECTED PRN PRN Reason: PAIN Stop: 08/02/16 19:00 Gabapentin (Neurontin) 300 mg PO BID [facility] Last Admin: 08/01/16 00:15 Dose: Not Given Gadoteridol (Prohance) 20 ml IV . DIRECTED PRN PRN Reason: RADIOLOGY EXAM Stop: 08/02/16 10:46 Last Admin: 08/01/16 11:13 Dose: 20 ml Glycopyrrolate () Confirm Administered Dose 1 mg .ROUTE .STK-MED ONE Stop: 08/02/16 09:33 Hydromorphone HCl (Dilaudid) 0.5 - 1 mg IV ASDIRECTED PRN PRN Reason: PAIN Stop: 08/02/16 19:00 Last Admin: 08/02/16 18:52 Dose: 1 mg Hydroxyzine HCl (Vistaril) 50 - 100 mg IM ASDIRECTED PRN PRN Reason: PAIN Stop: 08/02/16 19:00 Magnesium Sulfate 2 gm/ Premix 50 mls @ 25 mls/hr IV ONETIME ONE Stop: 08/01/16 18:59 Last Admin: 08/01/16 17:20 Dose: 25 mls/hr Cefazolin Sodium/Dextrose 2 gm (/ Premix) 50 mls @ 100 mls/hr IV PREPRO ONE Stop: 08/02/16 08:59 Last Admin: 08/02/16 12:48 Dose: Not Given Tranexamic Acid 950 mg/ Sodium (Chloride) 59.5 mls @ 238 mls/hr IV Q3H [facility] Stop: 08/02/16 12:14 Last Admin: 08/02/16 19:24 Dose: Not Given Lactated Ringer's (Ringers, Lactated) Confirm Administered Dose 1,000 mls @ as directed .ROUTE .STK-MED ONE Stop: 08/02/16 15:32 Lactated Ringer's (Ringers, Lactated) Confirm Administered Dose 1,000 mls @ as directed .ROUTE .STK-MED ONE Stop: 08/02/16 15:32 Lactated Ringer's (Ringers, Lactated) Confirm Administered Dose 1,000 mls @ as directed .ROUTE .STK-MED ONE Stop: 08/02/16 15:37 Cefazolin Sodium/Dextrose 2 gm (/ Premix) 50 mls @ 100 mls/hr IV Q8H [facility] Stop: 08/03/16 12:29 Last Admin: 08/03/16 03:52 Dose: 100 mls/hr Cefazolin Sodium 2 gm/ Sodium (Chloride) 50 mls @ 100 mls/hr IV ONETIME ONE Stop: 08/03/16 12:29 Last Admin: 08/03/16 12:02 Dose: 100 mls/hr Insulin Aspart (Novolog) 0 unit SUBCUT ASDIRECTED [facility] PRN Reason: Protocol Last Admin: 08/04/16 08:28 Dose: 3 units Labetalol HCl (Normodyne) 5 - 15 mg IVPUSH ASDIRECTED PRN PRN Reason: BP Stop: 08/02/16 19:00 Meperidine HCl (Demerol) 100 mg IM ASDIRECTED PRN PRN Reason: PAIN Stop: 08/02/16 19:00 Metoclopramide HCl (Reglan) 10 mg IVPUSH ASDIRECTED PRN PRN Reason: NAUSEA Stop: 08/02/16 19:00 Midazolam HCl (Versed 1 Mg/Ml) Confirm Administered Dose 2 mg .ROUTE .STK-MED ONE Stop: 08/02/16 09:32 Morphine Sulfate (Morphine) 1 - 4 mg IVPUSH ASDIRECTED PRN PRN Reason: PAIN Stop: 08/02/16 19:00 Naloxone HCl (Narcan) 0.2 mg IVPUSH ONETIME PRN PRN Reason: Oversedation Stop: 08/02/16 17:26 Neostigmine Methylsulfate (Neostigmine) Confirm Administered Dose 5 mg .ROUTE .STK-MED ONE Stop: 08/02/16 09:33 Ondansetron HCl (Zofran) Confirm Administered Dose 4 mg .ROUTE .STK-MED ONE Stop: 08/02/16 09:31 Ondansetron HCl (Zofran) 4 mg IVPUSH ASDIRECTED PRN PRN Reason: NAUSEA Stop: 08/02/16 19:00 Povidone Iodine (Betadine 10% Soln) Confirm Administered Dose 1 ml .ROUTE .STK- MED ONE Stop: 08/02/16 07:26 Last Admin: 08/02/16 11:51 Dose: 25 ml Propofol (Diprivan 20 Ml) Confirm Administered Dose 200 mg .ROUTE .STK-MED ONE Stop: 08/02/16 09:31 Propofol (Diprivan 20 Ml) Confirm Administered Dose 600 mg .ROUTE .STK-MED ONE Stop: 08/02/16 11:19 Propofol (Diprivan 20 Ml) Confirm Administered Dose 600 mg .ROUTE .STK-MED ONE Stop: 08/02/16 12:33 Propofol (Diprivan 20 Ml) Confirm Administered Dose 600 mg .ROUTE .STK-MED ONE Stop: 08/02/16 13:17 Propofol (Diprivan 20 Ml) Confirm Administered Dose 600 mg .ROUTE .STK-MED ONE Stop: 08/02/16 14:21 Propofol (Diprivan 20 Ml) Confirm Administered Dose 400 mg .ROUTE .STK-MED ONE Stop: 08/02/16 15:13 Propofol (Diprivan 20 Ml) Confirm Administered Dose 600 mg .ROUTE .STK-MED ONE Stop: 08/02/16 16:31 Propranolol HCl (Inderal La) 80 mg PO DAILY [facility] Last Admin: 08/01/16 08:09 Dose: Not Given Rocuronium [place] (Zemuron) Confirm Administered Dose 50 mg .ROUTE .STK-MED ONE Stop: 08/02/16 09:31 Sertraline HCl (Zoloft) 100 mg PO DAILY [facility] Sertraline HCl (Zoloft) 100 mg PO ONETIME ONE Stop: 07/31/16 22:31 Last Admin: 07/31/16 22:16 Dose: 100 mg Succinylcholine Chloride (Succinylcholine In Ns Pf) Confirm Administered Dose 200 mg .ROUTE .STK-MED ONE Stop: 08/02/16 09:31 Thrombin (Thrombin-Jmi) Confirm Administered Dose 10,000 unit .ROUTE .STK-MED ONE Stop: 08/02/16 07:26 Last Admin: 08/02/16 11:50 Dose: 10,000 unit Thrombin (Thrombin-Jmi) Confirm Administered Dose 5,000 unit .ROUTE .STK-MED ONE Stop: 08/02/16 13:01 Last Admin: 08/02/16 13:40 Dose: 5,000 unit Zolpidem Tartrate (Ambien) 5 mg PO BEDTIME PRN PRN Reason: Sleep - Exam Quality Assessment: DVT prophylaxis General: alert, oriented, cooperative, mild distress Lungs: Clear to auscultation, Normal respiratory effort Cardiovascular: Regular Rate, Regular Rhythm Abdomen: bowel sounds present, soft, no tenderness, no distension Extremities: no edema Skin: warm, dry, intact - Problem List Review Problem List Initiated/Reviewed/Updated: Yes - My Orders Last 24 Hours: My Active Orders 08/03/16 13:00 Blood Glucose Check, Bedside [RC] QIDACANDBED Diabetes Education [RC] Click to Edit Notify Provider [RC] PRN Dextrose 50% in Water 50 ml IV ASDIRECTED PRN Dextrose [Glutose 15] 15 gm PO ASDIRECTED PRN 08/03/16 13:01 Communication Order [RC] ASDIRECTED 08/04/16 12:00 Insulin Aspart [NovoLOG] See Protocol SUBCUT ASDIRECTED 08/04/16 16:30 GLUCOSE POC LAB TO COLLECT [POC] QIDACANDBED 08/04/16 21:00 GLUCOSE POC LAB TO COLLECT [POC] QIDACANDBED 08/05/16 07:30 GLUCOSE POC LAB TO COLLECT [POC] QIDACANDBED 08/05/16 11:30 GLUCOSE POC LAB TO COLLECT [POC] QIDACANDBED 08/05/16 16:30 GLUCOSE POC LAB TO COLLECT [POC] QIDACANDBED 08/05/16 21:00 GLUCOSE POC LAB TO COLLECT [POC] QIDACANDBED 08/06/16 07:30 GLUCOSE POC LAB TO COLLECT [POC] QIDACANDBED 08/06/16 11:30 GLUCOSE POC LAB TO COLLECT [POC] QIDACANDBED 08/06/16 16:30 GLUCOSE POC LAB TO COLLECT [POC] QIDACANDBED 08/06/16 21:00 GLUCOSE POC LAB TO COLLECT [POC] QIDACANDBED 08/07/16 07:30 GLUCOSE POC LAB TO COLLECT [POC] QIDACANDBED 08/07/16 11:30 GLUCOSE POC LAB TO COLLECT [POC] QIDACANDBED 08/07/16 16:30 GLUCOSE POC LAB TO COLLECT [POC] QIDACANDBED 08/07/16 21:00 GLUCOSE POC LAB TO COLLECT [POC] QIDACANDBED 08/08/16 07:30 GLUCOSE POC LAB TO COLLECT [POC] QIDACANDBED 08/08/16 11:30 GLUCOSE POC LAB TO COLLECT [POC] QIDACANDBED 08/08/16 16:30 GLUCOSE POC LAB TO COLLECT [POC] QIDACANDBED 08/08/16 21:00 GLUCOSE POC LAB TO COLLECT [POC] QIDACANDBED - Plan Plan:: ASSESSMENT AND RECOMMENDATIONS DECREASED SENSATION LEFT LEG SECONDARY TO SEVERE CERVICAL SPINAL STENOSIS- stable following surgery yesterday -Surgery planned for today with Dr. Tim Dorado TYPE 2 DIABETES MELLITUS-blood sugars have been elevated since surgery, likely secondary to dexamethasone -4 times a day glucometers -Continue oral hypoglycemic therapy -Moderate-dose sliding scale NovoLog
[2016-08-04] MEDS: Magnesium Hydroxide 400 MG/5 ML Susp 30 ML Cup PO PRN (12:09)
[2016-08-04] MEDS: Amitriptyline 25 MG Tab PO SCH (21:48)
[2016-08-04] MEDS: Sertraline 50 MG Tab PO SCH (21:48)
[2016-08-04] MEDS: atorvaSTATin 20 MG Tab PO SCH (21:48)
[2016-08-04] MEDS: Melatonin 3 MG Tab PO SCH (21:49)
[2016-08-04] MEDS: Propranolol 80 MG Cap.ER PO SCH (21:51)
[2016-08-05] MEDS: Acetaminophen/oxyCODONE 325-5 MG Tab PO PRN ×4 (04:52→21:53)
[2016-08-05] MEDS: Lactated Ringers 1,000 ML IV SCH (05:04)
[2016-08-05] MEDS: metFORMIN 500 MG Tab PO SCH ×2 (07:42→16:37)
[2016-08-05] MEDS: Pantoprazole 40 MG Tab.CR PO SCH (07:42)
[2016-08-05] MEDS: Insulin Aspart 100 Units/ML 3 ML Pen SUBCUT SCH ×3 (07:42→21:02)
[2016-08-05] MEDS: Magnesium Oxide 400 MG Tab PO SCH ×2 (09:10→20:54)
[2016-08-05] MEDS: Hydrochlorothiazide 12.5 MG Cap PO SCH (09:10)
[2016-08-05] MEDS: glipiZIDE 5 MG Tab.ER PO SCH (09:10)
[2016-08-05] MEDS: Gabapentin 300 MG Cap PO SCH ×3 (09:11→20:56)
[2016-08-05] MEDS: Ibuprofen 800 MG Tab PO SCH ×3 (09:11→20:55)
[2016-08-05] MEDS: Diclofenac Sodium 1% Gel 100 GM Tube TOP SCH ×3 (09:12→20:56)
[2016-08-05] MEDS: amLODIPine 5 MG Tab PO SCH (09:13)
[2016-08-05] MEDS: Potassium Chloride 10 MEQ Cap.ER PO SCH (09:13)
[2016-08-05] MEDS ORDERED: Potassium Chloride 20 MEQ Tab.ER PO ONE ×2 (10:00→16:00)
--- NOTE | 2016-08-05 10:38 | PCM.PN ---
- General Info Date of Service: 08/04/16 - Review of Systems General: Reports: Weakness HEENT: Reports: no symptoms Pulmonary: Reports: no symptoms Cardiovascular: Reports: No Symptoms Gastrointestinal: Reports: No symptoms Genitourinary: Reports: no symptoms Musculoskeletal: Reports: neck pain, other Neurological: Reports: Numbness, Paresthesia, Tingling, Difficulty Walking, Weakness, Gait Disturbance - Patient Data Vitals - most recent: Last Vital Signs Temp 96.5 F 08/05/16 08:00 Pulse 75 08/05/16 08:00 Resp 18 08/05/16 08:00 BP 155/85 H 08/05/16 09:13 Pulse Ox 96 08/05/16 08:00 Weight - most recent: 210 lb 12.8 oz I&O - last 24 hours: Intake & Output 08/04/16 08/05/16 08/05/16 22:59 06:59 14:59 Intake Total 3277 491 600 Output Total 200 10 350 Balance 3077 481 250 Lab Results last 24 hrs: Laboratory Results - last 24 hr 08/05/16 08/05/16 Range/Units 05:35 05:35 WBC 16.3 H (4.5-11.0) K/uL RBC 3.32 (3.30-5.50) M/uL Hgb 9.9 L (12.0-15.0) g/dL Hct 30.3 L (36.0-48.0) % MCV 91 (80-98) fL MCH 30 (27-31) pg MCHC 33 (32-36) % Plt Count 302 (150-400) K/uL Neut % (Auto) 55 (36-66) % Lymph % (Auto) 33 (24-44) % [place] % (Auto) 10 H (2-6) % Eos % (Auto) 2 (2-4) % Baso % (Auto) 0 (0-1) % Sodium 141 (140-148) mmol/L Potassium 3.3 L (3.6-5.2) mmol/L Chloride 102 (100-108) mmol/L Carbon Dioxide 32 (21-32) mmol/L Anion Gap 10.3 (5.0-14.0) mmol/L BUN 12 (7-18) mg/dL Creatinine 0.8 (0.6-1.0) mg/dL Est Cr Clr Drug Dosing 74.26 mL/min Estimated GFR (MDRD) > 60 (>60) Glucose 166 H (74-106) mg/dL Calcium 8.0 L (8.5-10.1) mg/dL Med Orders - Current: Current Medications Al Hydroxide/Mg Hydroxide (Mag-Al Plus) 30 ml PO Q4H PRN PRN Reason: Indigestion Amitriptyline HCl (Elavil) 25 mg PO BEDTIME [facility] Last Admin: 08/04/16 21:48 Dose: 25 mg Amlodipine Besylate (Norvasc) 5 mg PO DAILY [facility] Last Admin: 08/05/16 09:13 Dose: 5 mg Atorvastatin Calcium (Lipitor) 40 mg PO BEDTIME [facility] Last Admin: 08/04/16 21:48 Dose: 40 mg Dextrose (Glutose 15) 15 gm PO ASDIRECTED PRN PRN Reason: Hypoglycemia Dextrose/Water (Dextrose 50% In Water) 50 ml IV ASDIRECTED PRN PRN Reason: Hypoglycemia Diazepam (Valium) 5 mg IVPUSH Q6H PRN PRN Reason: Spasms Last Admin: 08/05/16 04:59 Dose: 5 mg Diclofenac Sodium (Voltaren 1% Gel) 0 gm TOP TID [facility] Last Admin: 08/05/16 09:12 Dose: Not Given Gabapentin (Neurontin) 900 mg PO 0900,1300 [facility] Last Admin: 08/05/16 09:11 Dose: 900 mg Gabapentin (Neurontin) 1,200 mg PO BEDTIME [facility] Last Admin: 08/04/16 21:49 Dose: 1,200 mg Glipizide (Glucotrol Xl) 10 mg PO DAILY [facility] Last Admin: 08/05/16 09:10 Dose: 10 mg Hydrochlorothiazide (Hydrochlorothiazide) 12.5 mg PO DAILY [facility] Last Admin: 08/05/16 09:10 Dose: 12.5 mg Hydromorphone HCl (Dilaudid) 1 mg IVPUSH Q2H PRN PRN Reason: Pain Lactated Ringer's (Ringers, Lactated) 1,000 mls @ 75 mls/hr IV ASDIRECTED [facility] Last Admin: 08/05/16 05:04 Dose: 75 mls/hr Ibuprofen (Motrin) 800 mg PO TID [facility] Last Admin: 08/05/16 09:11 Dose: 800 mg Insulin Aspart (Novolog) 0 unit SUBCUT ASDIRECTED [facility] PRN Reason: Protocol Last Admin: 08/05/16 07:42 Dose: 2 units Lorazepam (Ativan) 0 mg IVPUSH Q6H PRN PRN Reason: Anxiety Magnesium Hydroxide (Milk Of Magnesia) 30 ml PO BID PRN PRN Reason: Constipation Last Admin: 08/04/16 12:09 Dose: 30 ml Magnesium Oxide (Magnesium Oxide) 400 mg PO BID [facility] Last Admin: 08/05/16 09:10 Dose: 400 mg Melatonin (Melatonin) 9 mg PO BEDTIME [facility] Last Admin: 08/04/16 21:49 Dose: 9 mg Metformin HCl (Glucophage) 1,000 mg PO BIDMEALS [facility] Last Admin: 08/05/16 07:42 Dose: 1,000 mg Ondansetron HCl (Zofran) 8 mg IVPUSH Q4H PRN PRN Reason: Nausea/Vomiting Oxycodone/Acetaminophen (Percocet 325-5 Mg) 2 tab PO Q4H PRN PRN Reason: Pain Last Admin: 08/05/16 08:57 Dose: 2 tab Pantoprazole Sodium (Protonix) 40 mg PO ACBREAKFAST [facility] Last Admin: 08/05/16 07:42 Dose: 40 mg Potassium Chloride (Potassium Chloride) 10 meq PO DAILY [facility] Last Admin: 08/05/16 09:13 Dose: 10 meq Potassium Chloride (Klor-Con M20) 40 meq PO ONETIME ONE Stop: 08/05/16 16:01 Propranolol HCl (Inderal La) 80 mg PO BEDTIME [facility] Last Admin: 08/04/16 21:51 Dose: 80 mg Senna (Senna) 8.6 mg PO BID PRN PRN Reason: Constipation Sertraline HCl (Zoloft) 100 mg PO BEDTIME [facility] Last Admin: 08/04/16 21:48 Dose: 100 mg Sodium Chloride (Saline Flush) 10 ml FLUSH ASDIRECTED PRN PRN Reason: Keep Vein Open Tramadol HCl (Ultram) 100 mg PO Q6H PRN PRN Reason: Pain Last Admin: 08/01/16 21:21 Dose: 100 mg Zolpidem Tartrate (Ambien) 5 mg PO BEDTIME PRN PRN Reason: Insomnia Discontinued Medications Alprazolam (Xanax) 0.5 mg PO NOW ONE Stop: 08/01/16 19:56 Last Admin: 08/01/16 21:01 Dose: 0.5 mg Bupivacaine HCl/Epinephrine Bitart (Marcaine 0.5%/Epinephrine 1:200,000) Confirm Administered Dose 50 ml .ROUTE .STK-MED ONE Stop: 08/02/16 11:52 Bupivacaine HCl/Epinephrine Bitart (Marcaine 0.5%/Epinephrine 1:200,000) 40 ml INJECT .STK-MED ONE Stop: 08/02/16 11:55 Last Admin: 08/02/16 11:54 Dose: 40 ml Cyclobenzaprine HCl (Flexeril) 10 mg PO TID [facility] Last Admin: 08/02/16 14:06 Dose: Not Given Dexamethasone (Dexamethasone) 8 mg IVPUSH Q6H [facility] Last Admin: 08/01/16 08:21 Dose: 8 mg Dexamethasone (Dexamethasone) Confirm Administered Dose 4 mg .ROUTE .STK-MED ONE Stop: 08/02/16 09:31 Dexamethasone (Dexamethasone) 8 mg IVPUSH Q6H [facility] Stop: 08/03/16 18:01 Last Admin: 08/03/16 17:12 Dose: 8 mg Diazepam (Valium.) 5 mg PO ASDIRECTED ONE Stop: 08/01/16 10:01 Last Admin: 08/01/16 10:30 Dose: Not Given Fentanyl (Sublimaze) Confirm Administered Dose 500 mcg .ROUTE .STK-MED ONE Stop: 08/02/16 09:32 Fentanyl (Sublimaze) Confirm Administered Dose 250 mcg .ROUTE .STK-MED ONE Stop: 08/02/16 11:19 Fentanyl (Sublimaze) Confirm Administered Dose 250 mcg .ROUTE .STK-MED ONE Stop: 08/02/16 12:33 Fentanyl (Sublimaze) Confirm Administered Dose 250 mcg .ROUTE .STK-MED ONE Stop: 08/02/16 14:23 Fentanyl (Sublimaze) Confirm Administered Dose 250 mcg .ROUTE .STK-MED ONE Stop: 08/02/16 15:45 Fentanyl (Sublimaze) Confirm Administered Dose 250 mcg .ROUTE .STK-MED ONE Stop: 08/02/16 16:08 Fentanyl (Sublimaze) 50 - 100 mcg IVPUSH ASDIRECTED PRN PRN Reason: PAIN Stop: 08/02/16 19:00 Gabapentin (Neurontin) 300 mg PO BID [facility] Last Admin: 08/01/16 00:15 Dose: Not Given Gadoteridol (Prohance) 20 ml IV . DIRECTED PRN PRN Reason: RADIOLOGY EXAM Stop: 08/02/16 10:46 Last Admin: 08/01/16 11:13 Dose: 20 ml Glycopyrrolate () Confirm Administered Dose 1 mg .ROUTE .STK-MED ONE Stop: 08/02/16 09:33 Hydromorphone HCl (Dilaudid) 0.5 - 1 mg IV ASDIRECTED PRN PRN Reason: PAIN Stop: 08/02/16 19:00 Last Admin: 08/02/16 18:52 Dose: 1 mg Hydroxyzine HCl (Vistaril) 50 - 100 mg IM ASDIRECTED PRN PRN Reason: PAIN Stop: 08/02/16 19:00 Magnesium Sulfate 2 gm/ Premix 50 mls @ 25 mls/hr IV ONETIME ONE Stop: 08/01/16 18:59 Last Admin: 08/01/16 17:20 Dose: 25 mls/hr Cefazolin Sodium/Dextrose 2 gm (/ Premix) 50 mls @ 100 mls/hr IV PREPRO ONE Stop: 08/02/16 08:59 Last Admin: 08/02/16 12:48 Dose: Not Given Tranexamic Acid 950 mg/ Sodium (Chloride) 59.5 mls @ 238 mls/hr IV Q3H [facility] Stop: 08/02/16 12:14 Last Admin: 08/02/16 19:24 Dose: Not Given Lactated Ringer's (Ringers, Lactated) Confirm Administered Dose 1,000 mls @ as directed .ROUTE .STK-MED ONE Stop: 08/02/16 15:32 Lactated Ringer's (Ringers, Lactated) Confirm Administered Dose 1,000 mls @ as directed .ROUTE .STK-MED ONE Stop: 08/02/16 15:32 Lactated Ringer's (Ringers, Lactated) Confirm Administered Dose 1,000 mls @ as directed .ROUTE .STK-MED ONE Stop: 08/02/16 15:37 Cefazolin Sodium/Dextrose 2 gm (/ Premix) 50 mls @ 100 mls/hr IV Q8H [facility] Stop: 08/03/16 12:29 Last Admin: 08/03/16 03:52 Dose: 100 mls/hr Cefazolin Sodium 2 gm/ Sodium (Chloride) 50 mls @ 100 mls/hr IV ONETIME ONE Stop: 08/03/16 12:29 Last Admin: 08/03/16 12:02 Dose: 100 mls/hr Insulin Aspart (Novolog) 0 unit SUBCUT ASDIRECTED [place] PRN Reason: Protocol Last Admin: 08/04/16 08:28 Dose: 3 units Labetalol HCl (Normodyne) 5 - 15 mg IVPUSH ASDIRECTED PRN PRN Reason: BP Stop: 08/02/16 19:00 Meperidine HCl (Demerol) 100 mg IM ASDIRECTED PRN PRN Reason: PAIN Stop: 08/02/16 19:00 Metoclopramide HCl (Reglan) 10 mg IVPUSH ASDIRECTED PRN PRN Reason: NAUSEA Stop: 08/02/16 19:00 Midazolam HCl (Versed 1 Mg/Ml) Confirm Administered Dose 2 mg .ROUTE .STK-MED ONE Stop: 08/02/16 09:32 Morphine Sulfate (Morphine) 1 - 4 mg IVPUSH ASDIRECTED PRN PRN Reason: PAIN Stop: 08/02/16 19:00 Naloxone HCl (Narcan) 0.2 mg IVPUSH ONETIME PRN PRN Reason: Oversedation Stop: 08/02/16 17:26 Neostigmine Methylsulfate (Neostigmine) Confirm Administered Dose 5 mg .ROUTE .STK-MED ONE Stop: 08/02/16 09:33 Ondansetron HCl (Zofran) Confirm Administered Dose 4 mg .ROUTE .STK-MED ONE Stop: 08/02/16 09:31 Ondansetron HCl (Zofran) 4 mg IVPUSH ASDIRECTED PRN PRN Reason: NAUSEA Stop: 08/02/16 19:00 Potassium Chloride (Klor-Con M20) 40 meq PO ONETIME ONE Stop: 08/05/16 10:01 Povidone Iodine (Betadine 10% Soln) Confirm Administered Dose 1 ml .ROUTE .STK- MED ONE Stop: 08/02/16 07:26 Last Admin: 08/02/16 11:51 Dose: 25 ml Propofol (Diprivan 20 Ml) Confirm Administered Dose 200 mg .ROUTE .STK-MED ONE Stop: 08/02/16 09:31 Propofol (Diprivan 20 Ml) Confirm Administered Dose 600 mg .ROUTE .STK-MED ONE Stop: 08/02/16 11:19 Propofol (Diprivan 20 Ml) Confirm Administered Dose 600 mg .ROUTE .STK-MED ONE Stop: 08/02/16 12:33 Propofol (Diprivan 20 Ml) Confirm Administered Dose 600 mg .ROUTE .STK-MED ONE Stop: 08/02/16 13:17 Propofol (Diprivan 20 Ml) Confirm Administered Dose 600 mg .ROUTE .STK-MED ONE Stop: 08/02/16 14:21 Propofol (Diprivan 20 Ml) Confirm Administered Dose 400 mg .ROUTE .STK-MED ONE Stop: 08/02/16 15:13 Propofol (Diprivan 20 Ml) Confirm Administered Dose 600 mg .ROUTE .STK-MED ONE Stop: 08/02/16 16:31 Propranolol HCl (Inderal La) 80 mg PO DAILY [facility] Last Admin: 08/01/16 08:09 Dose: Not Given Rocuronium [place] (Zemuron) Confirm Administered Dose 50 mg .ROUTE .ST-MED ONE Stop: 08/02/16 09:31 Sertraline HCl (Zoloft) 100 mg PO DAILY [facility] Sertraline HCl (Zoloft) 100 mg PO ONETIME ONE Stop: 07/31/16 22:31 Last Admin: 07/31/16 22:16 Dose: 100 mg Succinylcholine Chloride (Succinylcholine In Ns Pf) Confirm Administered Dose 200 mg .ROUTE .STK-MED ONE Stop: 08/02/16 09:31 Thrombin (Thrombin-Jmi) Confirm Administered Dose 10,000 unit .ROUTE .STK-MED ONE Stop: 08/02/16 07:26 Last Admin: 08/02/16 11:50 Dose: 10,000 unit Thrombin (Thrombin-Jmi) Confirm Administered Dose 5,000 unit .ROUTE .STK-MED ONE Stop: 08/02/16 13:01 Last Admin: 08/02/16 13:40 Dose: 5,000 unit Zolpidem Tartrate (Ambien) 5 mg PO BEDTIME PRN PRN Reason: Sleep - Problem List & Annotations (1) History of cervical spinal arthrodesis SNOMED Code(s): 916482742, 127733613 Code(s): Z98.1 - ARTHRODESIS STATUS Status: Acute Current Visit: Yes (2) Myelopathy Status: Acute Current Visit: Yes - Problem List Review Problem List Initiated/Reviewed/Updated: Yes - Plan Plan:: A: POD 2 C3-4, C6-T3 PCF with laminectomy C3-4, C7-T1 P: Pain better controlled today. Having numbness and paresthesias in both legs. Left more than right. Ambulating better with walker. Will DC pimentel. Drain put out 170 in last 24 hours so will clamp. Became serosanguinous in last 24h. PT, OT, pain control
--- NOTE | 2016-08-05 10:41 | PCM.PN ---
- General Info Functional Status: Reports: pain controlled, tolerating diet, ambulating, urinating - Review of Systems General: Reports: Weakness HEENT: Reports: no symptoms Pulmonary: Reports: no symptoms Cardiovascular: Reports: No Symptoms Gastrointestinal: Reports: No symptoms Genitourinary: Reports: no symptoms Musculoskeletal: Reports: neck pain Skin: Reports: no symptoms Neurological: Reports: Numbness, Paresthesia, Tingling, Difficulty Walking, Weakness, Gait Disturbance - Patient Data Vitals - most recent: Last Vital Signs Temp 96.5 F 08/05/16 08:00 Pulse 75 08/05/16 08:00 Resp 18 08/05/16 08:00 BP 155/85 H 08/05/16 09:13 Pulse Ox 96 08/05/16 08:00 Weight - most recent: 210 lb 12.8 oz I&O - last 24 hours: Intake & Output 08/04/16 08/05/16 08/05/16 22:59 06:59 14:59 Intake Total 3277 491 600 Output Total 200 10 350 Balance 3077 481 250 Lab Results last 24 hrs: Laboratory Results - last 24 hr 08/05/16 08/05/16 Range/Units 05:35 05:35 WBC 16.3 H (4.5-11.0) K/uL RBC 3.32 (3.30-5.50) M/uL Hgb 9.9 L (12.0-15.0) g/dL Hct 30.3 L (36.0-48.0) % MCV 91 (80-98) fL MCH 30 (27-31) pg MCHC 33 (32-36) % Plt Count 302 (150-400) K/uL Neut % (Auto) 55 (36-66) % Lymph % (Auto) 33 (24-44) % [place] % (Auto) 10 H (2-6) % Eos % (Auto) 2 (2-4) % Baso % (Auto) 0 (0-1) % Sodium 141 (140-148) mmol/L Potassium 3.3 L (3.6-5.2) mmol/L Chloride 102 (100-108) mmol/L Carbon Dioxide 32 (21-32) mmol/L Anion Gap 10.3 (5.0-14.0) mmol/L BUN 12 (7-18) mg/dL Creatinine 0.8 (0.6-1.0) mg/dL Est Cr Clr Drug Dosing 74.26 mL/min Estimated GFR (MDRD) > 60 (>60) Glucose 166 H (74-106) mg/dL Calcium 8.0 L (8.5-10.1) mg/dL Med Orders - Current: Current Medications Al Hydroxide/Mg Hydroxide (Mag-Al Plus) 30 ml PO Q4H PRN PRN Reason: Indigestion Amitriptyline HCl (Elavil) 25 mg PO BEDTIME [facility] Last Admin: 08/04/16 21:48 Dose: 25 mg Amlodipine Besylate (Norvasc) 5 mg PO DAILY [facility] Last Admin: 08/05/16 09:13 Dose: 5 mg Atorvastatin Calcium (Lipitor) 40 mg PO BEDTIME [facility] Last Admin: 08/04/16 21:48 Dose: 40 mg Dextrose (Glutose 15) 15 gm PO ASDIRECTED PRN PRN Reason: Hypoglycemia Dextrose/Water (Dextrose 50% In Water) 50 ml IV ASDIRECTED PRN PRN Reason: Hypoglycemia Diclofenac Sodium (Voltaren 1% Gel) 0 gm TOP TID [facility] Last Admin: 08/05/16 09:12 Dose: Not Given Gabapentin (Neurontin) 900 mg PO 0900,1300 [facility] Last Admin: 08/05/16 09:11 Dose: 900 mg Gabapentin (Neurontin) 1,200 mg PO BEDTIME [facility] Last Admin: 08/04/16 21:49 Dose: 1,200 mg Glipizide (Glucotrol Xl) 10 mg PO DAILY [facility] Last Admin: 08/05/16 09:10 Dose: 10 mg Hydrochlorothiazide (Hydrochlorothiazide) 12.5 mg PO DAILY [facility] Last Admin: 08/05/16 09:10 Dose: 12.5 mg Hydromorphone HCl (Dilaudid) 1 mg IVPUSH Q2H PRN PRN Reason: Pain Lactated Ringer's (Ringers, Lactated) 1,000 mls @ 75 mls/hr IV ASDIRECTED [facility] Last Admin: 08/05/16 05:04 Dose: 75 mls/hr Ibuprofen (Motrin) 800 mg PO TID [facility] Last Admin: 08/05/16 09:11 Dose: 800 mg Insulin Aspart (Novolog) 0 unit SUBCUT ASDIRECTED [facility] PRN Reason: Protocol Last Admin: 08/05/16 07:42 Dose: 2 units Lorazepam (Ativan) 0 mg IVPUSH Q6H PRN PRN Reason: Anxiety Magnesium Hydroxide (Milk Of Magnesia) 30 ml PO BID PRN PRN Reason: Constipation Last Admin: 08/04/16 12:09 Dose: 30 ml Magnesium Oxide (Magnesium Oxide) 400 mg PO BID [facility] Last Admin: 08/05/16 09:10 Dose: 400 mg Melatonin (Melatonin) 9 mg PO BEDTIME [facility] Last Admin: 08/04/16 21:49 Dose: 9 mg Metformin HCl (Glucophage) 1,000 mg PO BIDMEALS [facility] Last Admin: 08/05/16 07:42 Dose: 1,000 mg Ondansetron HCl (Zofran) 8 mg IVPUSH Q4H PRN PRN Reason: Nausea/Vomiting Oxycodone/Acetaminophen (Percocet 325-5 Mg) 2 tab PO Q4H PRN PRN Reason: Pain Last Admin: 08/05/16 08:57 Dose: 2 tab Pantoprazole Sodium (Protonix) 40 mg PO ACBREAKFAST [facility] Last Admin: 08/05/16 07:42 Dose: 40 mg Potassium Chloride (Potassium Chloride) 10 meq PO DAILY [facility] Last Admin: 08/05/16 09:13 Dose: 10 meq Potassium Chloride (Klor-Con M20) 40 meq PO ONETIME ONE Stop: 08/05/16 16:01 Propranolol HCl (Inderal La) 80 mg PO BEDTIME [facility] Last Admin: 08/04/16 21:51 Dose: 80 mg Senna (Senna) 8.6 mg PO BID PRN PRN Reason: Constipation Sertraline HCl (Zoloft) 100 mg PO BEDTIME [facility] Last Admin: 08/04/16 21:48 Dose: 100 mg Sodium Chloride (Saline Flush) 10 ml FLUSH ASDIRECTED PRN PRN Reason: Keep Vein Open Tramadol HCl (Ultram) 100 mg PO Q6H PRN PRN Reason: Pain Last Admin: 08/01/16 21:21 Dose: 100 mg Zolpidem Tartrate (Ambien) 5 mg PO BEDTIME PRN PRN Reason: Insomnia Discontinued Medications Alprazolam (Xanax) 0.5 mg PO NOW ONE Stop: 08/01/16 19:56 Last Admin: 08/01/16 21:01 Dose: 0.5 mg Bupivacaine HCl/Epinephrine Bitart (Marcaine 0.5%/Epinephrine 1:200,000) Confirm Administered Dose 50 ml .ROUTE .STK-MED ONE Stop: 08/02/16 11:52 Bupivacaine HCl/Epinephrine Bitart (Marcaine 0.5%/Epinephrine 1:200,000) 40 ml INJECT .STK-MED ONE Stop: 08/02/16 11:55 Last Admin: 08/02/16 11:54 Dose: 40 ml Cyclobenzaprine HCl (Flexeril) 10 mg PO TID [facility] Last Admin: 08/02/16 14:06 Dose: Not Given Dexamethasone (Dexamethasone) 8 mg IVPUSH Q6H [facility] Last Admin: 08/01/16 08:21 Dose: 8 mg Dexamethasone (Dexamethasone) Confirm Administered Dose 4 mg .ROUTE .STK-MED ONE Stop: 08/02/16 09:31 Dexamethasone (Dexamethasone) 8 mg IVPUSH Q6H [facility] Stop: 08/03/16 18:01 Last Admin: 08/03/16 17:12 Dose: 8 mg Diazepam (Valium.) 5 mg PO ASDIRECTED ONE Stop: 08/01/16 10:01 Last Admin: 08/01/16 10:30 Dose: Not Given Diazepam (Valium) 5 mg IVPUSH Q6H PRN PRN Reason: Spasms Last Admin: 08/05/16 04:59 Dose: 5 mg Fentanyl (Sublimaze) Confirm Administered Dose 500 mcg .ROUTE .STK-MED ONE Stop: 08/02/16 09:32 Fentanyl (Sublimaze) Confirm Administered Dose 250 mcg .ROUTE .STK-MED ONE Stop: 08/02/16 11:19 Fentanyl (Sublimaze) Confirm Administered Dose 250 mcg .ROUTE .STK-MED ONE Stop: 08/02/16 12:33 Fentanyl (Sublimaze) Confirm Administered Dose 250 mcg .ROUTE .STK-MED ONE Stop: 08/02/16 14:23 Fentanyl (Sublimaze) Confirm Administered Dose 250 mcg .ROUTE .STK-MED ONE Stop: 08/02/16 15:45 Fentanyl (Sublimaze) Confirm Administered Dose 250 mcg .ROUTE .STK-MED ONE Stop: 08/02/16 16:08 Fentanyl (Sublimaze) 50 - 100 mcg IVPUSH ASDIRECTED PRN PRN Reason: PAIN Stop: 08/02/16 19:00 Gabapentin (Neurontin) 300 mg PO BID [facility] Last Admin: 08/01/16 00:15 Dose: Not Given Gadoteridol (Prohance) 20 ml IV . DIRECTED PRN PRN Reason: RADIOLOGY EXAM Stop: 08/02/16 10:46 Last Admin: 08/01/16 11:13 Dose: 20 ml Glycopyrrolate () Confirm Administered Dose 1 mg .ROUTE .STK-MED ONE Stop: 08/02/16 09:33 Hydromorphone HCl (Dilaudid) 0.5 - 1 mg IV ASDIRECTED PRN PRN Reason: PAIN Stop: 08/02/16 19:00 Last Admin: 08/02/16 18:52 Dose: 1 mg Hydroxyzine HCl (Vistaril) 50 - 100 mg IM ASDIRECTED PRN PRN Reason: PAIN Stop: 08/02/16 19:00 Magnesium Sulfate 2 gm/ Premix 50 mls @ 25 mls/hr IV ONETIME ONE Stop: 08/01/16 18:59 Last Admin: 08/01/16 17:20 Dose: 25 mls/hr Cefazolin Sodium/Dextrose 2 gm (/ Premix) 50 mls @ 100 mls/hr IV PREPRO ONE Stop: 08/02/16 08:59 Last Admin: 08/02/16 12:48 Dose: Not Given Tranexamic Acid 950 mg/ Sodium (Chloride) 59.5 mls @ 238 mls/hr IV Q3H [facility] Stop: 08/02/16 12:14 Last Admin: 08/02/16 19:24 Dose: Not Given Lactated Ringer's (Ringers, Lactated) Confirm Administered Dose 1,000 mls @ as directed .ROUTE .STK-MED ONE Stop: 08/02/16 15:32 Lactated Ringer's (Ringers, Lactated) Confirm Administered Dose 1,000 mls @ as directed .ROUTE .STK-MED ONE Stop: 08/02/16 15:32 Lactated Ringer's (Ringers, Lactated) Confirm Administered Dose 1,000 mls @ as directed .ROUTE .STK-MED ONE Stop: 08/02/16 15:37 Cefazolin Sodium/Dextrose 2 gm (/ Premix) 50 mls @ 100 mls/hr IV Q8H [facility] Stop: 08/03/16 12:29 Last Admin: 08/03/16 03:52 Dose: 100 mls/hr Cefazolin Sodium 2 gm/ Sodium (Chloride) 50 mls @ 100 mls/hr IV ONETIME ONE Stop: 08/03/16 12:29 Last Admin: 08/03/16 12:02 Dose: 100 mls/hr Insulin Aspart (Novolog) 0 unit SUBCUT ASDIRECTED [facility] PRN Reason: Protocol Last Admin: 08/04/16 08:28 Dose: 3 units Labetalol HCl (Normodyne) 5 - 15 mg IVPUSH ASDIRECTED PRN PRN Reason: BP Stop: 08/02/16 19:00 Meperidine HCl (Demerol) 100 mg IM ASDIRECTED PRN PRN Reason: PAIN Stop: 08/02/16 19:00 Metoclopramide HCl (Reglan) 10 mg IVPUSH ASDIRECTED PRN PRN Reason: NAUSEA Stop: 08/02/16 19:00 Midazolam HCl (Versed 1 Mg/Ml) Confirm Administered Dose 2 mg .ROUTE .STK-MED ONE Stop: 08/02/16 09:32 Morphine Sulfate (Morphine) 1 - 4 mg IVPUSH ASDIRECTED PRN PRN Reason: PAIN Stop: 08/02/16 19:00 Naloxone HCl (Narcan) 0.2 mg IVPUSH ONETIME PRN PRN Reason: Oversedation Stop: 08/02/16 17:26 Neostigmine Methylsulfate (Neostigmine) Confirm Administered Dose 5 mg .ROUTE .STK-MED ONE Stop: 08/02/16 09:33 Ondansetron HCl (Zofran) Confirm Administered Dose 4 mg .ROUTE .STK-MED ONE Stop: 08/02/16 09:31 Ondansetron HCl (Zofran) 4 mg IVPUSH ASDIRECTED PRN PRN Reason: NAUSEA Stop: 08/02/16 19:00 Potassium Chloride (Klor-Con M20) 40 meq PO ONETIME ONE Stop: 08/05/16 10:01 Povidone Iodine (Betadine 10% Soln) Confirm Administered Dose 1 ml .ROUTE .STK- MED ONE Stop: 08/02/16 07:26 Last Admin: 08/02/16 11:51 Dose: 25 ml Propofol (Diprivan 20 Ml) Confirm Administered Dose 200 mg .ROUTE .STK-MED ONE Stop: 08/02/16 09:31 Propofol (Diprivan 20 Ml) Confirm Administered Dose 600 mg .ROUTE .STK-MED ONE Stop: 08/02/16 11:19 Propofol (Diprivan 20 Ml) Confirm Administered Dose 600 mg .ROUTE .STK-MED ONE Stop: 08/02/16 12:33 Propofol (Diprivan 20 Ml) Confirm Administered Dose 600 mg .ROUTE .STK-MED ONE Stop: 08/02/16 13:17 Propofol (Diprivan 20 Ml) Confirm Administered Dose 600 mg .ROUTE .STK-MED ONE Stop: 08/02/16 14:21 Propofol (Diprivan 20 Ml) Confirm Administered Dose 400 mg .ROUTE .STK-MED ONE Stop: 08/02/16 15:13 Propofol (Diprivan 20 Ml) Confirm Administered Dose 600 mg .ROUTE .STK-MED ONE Stop: 08/02/16 16:31 Propranolol HCl (Inderal La) 80 mg PO DAILY [facility] Last Admin: 08/01/16 08:09 Dose: Not Given Rocuronium [place] (Zemuron) Confirm Administered Dose 50 mg .ROUTE .STK-MED ONE Stop: 08/02/16 09:31 Sertraline HCl (Zoloft) 100 mg PO DAILY [facility] Sertraline HCl (Zoloft) 100 mg PO ONETIME ONE Stop: 07/31/16 22:31 Last Admin: 07/31/16 22:16 Dose: 100 mg Succinylcholine Chloride (Succinylcholine In Ns Pf) Confirm Administered Dose 200 mg .ROUTE .STK-MED ONE Stop: 08/02/16 09:31 Thrombin (Thrombin-Jmi) Confirm Administered Dose 10,000 unit .ROUTE .STK-MED ONE Stop: 08/02/16 07:26 Last Admin: 08/02/16 11:50 Dose: 10,000 unit Thrombin (Thrombin-Jmi) Confirm Administered Dose 5,000 unit .ROUTE .STK-MED ONE Stop: 08/02/16 13:01 Last Admin: 08/02/16 13:40 Dose: 5,000 unit Zolpidem Tartrate (Ambien) 5 mg PO BEDTIME PRN PRN Reason: Sleep - Exam General: alert, oriented HEENT: Pupils equal, Pupils reactive, EOMI Lungs: Clear to auscultation, Normal respiratory effort Cardiovascular: Regular Rhythm Skin: warm, intact, moist Wound/Incisions: healing well, drainage Neurological: no new focal deficit Psy/Mental Status: alert, normal affect (Walked 260' States balance better than pre-operatively. Changed dressing. Serous drainage. Removed drain. Placed new dressing.) - Problem List & Annotations (1) History of cervical spinal arthrodesis SNOMED Code(s): 878585684, 746361355 Code(s): Z98.1 - ARTHRODESIS STATUS Status: Acute Current Visit: Yes (2) Myelopathy Status: Acute Current Visit: Yes - Problem List Review Problem List Initiated/Reviewed/Updated: Yes - My Orders Last 24 Hours: My Active Orders 08/05/16 10:37 Diazepam [Valium] 5 mg PO QID PRN - Plan Plan:: A: POD 3 C3-4, C6-T3 PCF with laminectomy C3-4, C7-T1 P: Pain better controlled today. Numbness improved. None in RLE. LLE numbness only near toes. Ambulating better with walker. PT, OT, pain control Dressing change BID soft collar PRN change iv to po diazepam
[2016-08-05] MEDS: Sennosides 8.6 MG Tab PO PRN (11:42)
[2016-08-05] MEDS: Magnesium Hydroxide 400 MG/5 ML Susp 30 ML Cup PO PRN (11:42)
[2016-08-05] MEDS: Diazepam 5 MG Tab PO PRN ×2 (11:42→21:53)
--- NOTE | 2016-08-05 15:36 | PCM.PN ---
- General Info Date of Service: 08/05/16 Functional Status: Reports: pain controlled, ambulating - Review of Systems General: Denies: Fever, Chills Pulmonary: Reports: no symptoms Cardiovascular: Reports: No Symptoms Gastrointestinal: Reports: No symptoms Systems Review Comment:: This patient has remained stable over the past 24 hours, pain control has been adequate. Vital signs have been stable and she has remained afebrile. Glucose levels are under better control with current management. - Patient Data Vitals - most recent: Last Vital Signs Temp 97.3 F 08/05/16 14:55 Pulse 86 08/05/16 14:55 Resp 16 08/05/16 14:55 BP 135/76 08/05/16 14:55 Pulse Ox 92 L 08/05/16 14:55 Weight - most recent: 210 lb 12.8 oz I&O - last 24 hours: Intake & Output 08/05/16 08/05/16 08/05/16 06:59 14:59 22:59 Intake Total 491 2168 Output Total 10 650 Balance 481 1518 Lab Results last 24 hrs: Laboratory Results - last 24 hr 08/05/16 08/05/16 Range/Units 05:35 05:35 WBC 16.3 H (4.5-11.0) K/uL RBC 3.32 (3.30-5.50) M/uL Hgb 9.9 L (12.0-15.0) g/dL Hct 30.3 L (36.0-48.0) % MCV 91 (80-98) fL MCH 30 (27-31) pg MCHC 33 (32-36) % Plt Count 302 (150-400) K/uL Neut % (Auto) 55 (36-66) % Lymph % (Auto) 33 (24-44) % [place] % (Auto) 10 H (2-6) % Eos % (Auto) 2 (2-4) % Baso % (Auto) 0 (0-1) % Sodium 141 (140-148) mmol/L Potassium 3.3 L (3.6-5.2) mmol/L Chloride 102 (100-108) mmol/L Carbon Dioxide 32 (21-32) mmol/L Anion Gap 10.3 (5.0-14.0) mmol/L BUN 12 (7-18) mg/dL Creatinine 0.8 (0.6-1.0) mg/dL Est Cr Clr Drug Dosing 74.26 mL/min Estimated GFR (MDRD) > 60 (>60) Glucose 166 H (74-106) mg/dL Calcium 8.0 L (8.5-10.1) mg/dL Med Orders - Current: Current Medications Al Hydroxide/Mg Hydroxide (Mag-Al Plus) 30 ml PO Q4H PRN PRN Reason: Indigestion Amitriptyline HCl (Elavil) 25 mg PO BEDTIME [facility] Last Admin: 08/04/16 21:48 Dose: 25 mg Amlodipine Besylate (Norvasc) 5 mg PO DAILY [facility] Last Admin: 08/05/16 09:13 Dose: 5 mg Atorvastatin Calcium (Lipitor) 40 mg PO BEDTIME [facility] Last Admin: 08/04/16 21:48 Dose: 40 mg Dextrose (Glutose 15) 15 gm PO ASDIRECTED PRN PRN Reason: Hypoglycemia Dextrose/Water (Dextrose 50% In Water) 50 ml IV ASDIRECTED PRN PRN Reason: Hypoglycemia Diazepam (Valium.) 5 mg PO QID PRN PRN Reason: Spasms Last Admin: 08/05/16 11:42 Dose: 5 mg Diclofenac Sodium (Voltaren 1% Gel) 0 gm TOP TID [facility] Last Admin: 08/05/16 14:12 Dose: Not Given Gabapentin (Neurontin) 900 mg PO 0900,1300 [facility] Last Admin: 08/05/16 12:48 Dose: 900 mg Gabapentin (Neurontin) 1,200 mg PO BEDTIME [facility] Last Admin: 08/04/16 21:49 Dose: 1,200 mg Glipizide (Glucotrol Xl) 10 mg PO DAILY [facility] Last Admin: 08/05/16 09:10 Dose: 10 mg Hydrochlorothiazide (Hydrochlorothiazide) 12.5 mg PO DAILY [facility] Last Admin: 08/05/16 09:10 Dose: 12.5 mg Hydromorphone HCl (Dilaudid) 1 mg IVPUSH Q2H PRN PRN Reason: Pain Ibuprofen (Motrin) 800 mg PO TID [facility] Last Admin: 08/05/16 14:20 Dose: 800 mg Insulin Aspart (Novolog) 0 unit SUBCUT ASDIRECTED [facility] PRN Reason: Protocol Last Admin: 08/05/16 12:47 Dose: 6 units Lorazepam (Ativan) 0 mg IVPUSH Q6H PRN PRN Reason: Anxiety Magnesium Hydroxide (Milk Of Magnesia) 30 ml PO BID PRN PRN Reason: Constipation Last Admin: 08/05/16 11:42 Dose: 30 ml Magnesium Oxide (Magnesium Oxide) 400 mg PO BID [facility] Last Admin: 08/05/16 09:10 Dose: 400 mg Melatonin (Melatonin) 9 mg PO BEDTIME [facility] Last Admin: 08/04/16 21:49 Dose: 9 mg Metformin HCl (Glucophage) 1,000 mg PO BIDMEALS [facility] Last Admin: 08/05/16 07:42 Dose: 1,000 mg Ondansetron HCl (Zofran) 8 mg IVPUSH Q4H PRN PRN Reason: Nausea/Vomiting Oxycodone/Acetaminophen (Percocet 325-5 Mg) 2 tab PO Q4H PRN PRN Reason: Pain Last Admin: 08/05/16 14:20 Dose: 2 tab Pantoprazole Sodium (Protonix) 40 mg PO ACBREAKFAST [facility] Last Admin: 08/05/16 07:42 Dose: 40 mg Potassium Chloride (Potassium Chloride) 10 meq PO DAILY [facility] Last Admin: 08/05/16 09:13 Dose: 10 meq Potassium Chloride (Klor-Con M20) 40 meq PO ONETIME ONE Stop: 08/05/16 16:01 Propranolol HCl (Inderal La) 80 mg PO BEDTIME [facility] Last Admin: 08/04/16 21:51 Dose: 80 mg Senna (Senna) 8.6 mg PO BID PRN PRN Reason: Constipation Last Admin: 08/05/16 11:42 Dose: 8.6 mg Sertraline HCl (Zoloft) 100 mg PO BEDTIME [facility] Last Admin: 08/04/16 21:48 Dose: 100 mg Sodium Chloride (Saline Flush) 10 ml FLUSH ASDIRECTED PRN PRN Reason: Keep Vein Open Tramadol HCl (Ultram) 100 mg PO Q6H PRN PRN Reason: Pain Last Admin: 08/01/16 21:21 Dose: 100 mg Zolpidem Tartrate (Ambien) 5 mg PO BEDTIME PRN PRN Reason: Insomnia Discontinued Medications Alprazolam (Xanax) 0.5 mg PO NOW ONE Stop: 08/01/16 19:56 Last Admin: 08/01/16 21:01 Dose: 0.5 mg Bupivacaine HCl/Epinephrine Bitart (Marcaine 0.5%/Epinephrine 1:200,000) Confirm Administered Dose 50 ml .ROUTE .STK-MED ONE Stop: 08/02/16 11:52 Bupivacaine HCl/Epinephrine Bitart (Marcaine 0.5%/Epinephrine 1:200,000) 40 ml INJECT .STK-MED ONE Stop: 08/02/16 11:55 Last Admin: 08/02/16 11:54 Dose: 40 ml Cyclobenzaprine HCl (Flexeril) 10 mg PO TID [facility] Last Admin: 08/02/16 14:06 Dose: Not Given Dexamethasone (Dexamethasone) 8 mg IVPUSH Q6H [facility] Last Admin: 08/01/16 08:21 Dose: 8 mg Dexamethasone (Dexamethasone) Confirm Administered Dose 4 mg .ROUTE .STK-MED ONE Stop: 08/02/16 09:31 Dexamethasone (Dexamethasone) 8 mg IVPUSH Q6H [facility] Stop: 08/03/16 18:01 Last Admin: 08/03/16 17:12 Dose: 8 mg Diazepam (Valium.) 5 mg PO ASDIRECTED ONE Stop: 08/01/16 10:01 Last Admin: 08/01/16 10:30 Dose: Not Given Diazepam (Valium) 5 mg IVPUSH Q6H PRN PRN Reason: Spasms Last Admin: 08/05/16 04:59 Dose: 5 mg Fentanyl (Sublimaze) Confirm Administered Dose 500 mcg .ROUTE .STK-MED ONE Stop: 08/02/16 09:32 Fentanyl (Sublimaze) Confirm Administered Dose 250 mcg .ROUTE .STK-MED ONE Stop: 08/02/16 11:19 Fentanyl (Sublimaze) Confirm Administered Dose 250 mcg .ROUTE .STK-MED ONE Stop: 08/02/16 12:33 Fentanyl (Sublimaze) Confirm Administered Dose 250 mcg .ROUTE .STK-MED ONE Stop: 08/02/16 14:23 Fentanyl (Sublimaze) Confirm Administered Dose 250 mcg .ROUTE .STK-MED ONE Stop: 08/02/16 15:45 Fentanyl (Sublimaze) Confirm Administered Dose 250 mcg .ROUTE .STK-MED ONE Stop: 08/02/16 16:08 Fentanyl (Sublimaze) 50 - 100 mcg IVPUSH ASDIRECTED PRN PRN Reason: PAIN Stop: 08/02/16 19:00 Gabapentin (Neurontin) 300 mg PO BID [facility] Last Admin: 08/01/16 00:15 Dose: Not Given Gadoteridol (Prohance) 20 ml IV . DIRECTED PRN PRN Reason: RADIOLOGY EXAM Stop: 08/02/16 10:46 Last Admin: 08/01/16 11:13 Dose: 20 ml Glycopyrrolate () Confirm Administered Dose 1 mg .ROUTE .STK-MED ONE Stop: 08/02/16 09:33 Hydromorphone HCl (Dilaudid) 0.5 - 1 mg IV ASDIRECTED PRN PRN Reason: PAIN Stop: 08/02/16 19:00 Last Admin: 08/02/16 18:52 Dose: 1 mg Hydroxyzine HCl (Vistaril) 50 - 100 mg IM ASDIRECTED PRN PRN Reason: PAIN Stop: 08/02/16 19:00 Magnesium Sulfate 2 gm/ Premix 50 mls @ 25 mls/hr IV ONETIME ONE Stop: 08/01/16 18:59 Last Admin: 08/01/16 17:20 Dose: 25 mls/hr Lactated Ringer's (Ringers, Lactated) 1,000 mls @ 75 mls/hr IV ASDIRECTED [facility] Last Admin: 08/05/16 05:04 Dose: 75 mls/hr Cefazolin Sodium/Dextrose 2 gm (/ Premix) 50 mls @ 100 mls/hr IV PREPRO ONE Stop: 08/02/16 08:59 Last Admin: 08/02/16 12:48 Dose: Not Given Tranexamic Acid 950 mg/ Sodium (Chloride) 59.5 mls @ 238 mls/hr IV Q3H [facility] Stop: 08/02/16 12:14 Last Admin: 08/02/16 19:24 Dose: Not Given Lactated Ringer's (Ringers, Lactated) Confirm Administered Dose 1,000 mls @ as directed .ROUTE .STK-MED ONE Stop: 08/02/16 15:32 Lactated Ringer's (Ringers, Lactated) Confirm Administered Dose 1,000 mls @ as directed .ROUTE .STK-MED ONE Stop: 08/02/16 15:32 Lactated Ringer's (Ringers, Lactated) Confirm Administered Dose 1,000 mls @ as directed .ROUTE .STK-MED ONE Stop: 08/02/16 15:37 Cefazolin Sodium/Dextrose 2 gm (/ Premix) 50 mls @ 100 mls/hr IV Q8H [facility] Stop: 08/03/16 12:29 Last Admin: 08/03/16 03:52 Dose: 100 mls/hr Cefazolin Sodium 2 gm/ Sodium (Chloride) 50 mls @ 100 mls/hr IV ONETIME ONE Stop: 08/03/16 12:29 Last Admin: 08/03/16 12:02 Dose: 100 mls/hr Insulin Aspart (Novolog) 0 unit SUBCUT ASDIRECTED [facility] PRN Reason: Protocol Last Admin: 08/04/16 08:28 Dose: 3 units Labetalol HCl (Normodyne) 5 - 15 mg IVPUSH ASDIRECTED PRN PRN Reason: BP Stop: 08/02/16 19:00 Meperidine HCl (Demerol) 100 mg IM ASDIRECTED PRN PRN Reason: PAIN Stop: 08/02/16 19:00 Metoclopramide HCl (Reglan) 10 mg IVPUSH ASDIRECTED PRN PRN Reason: NAUSEA Stop: 08/02/16 19:00 Midazolam HCl (Versed 1 Mg/Ml) Confirm Administered Dose 2 mg .ROUTE .STK-MED ONE Stop: 08/02/16 09:32 Morphine Sulfate (Morphine) 1 - 4 mg IVPUSH ASDIRECTED PRN PRN Reason: PAIN Stop: 08/02/16 19:00 Naloxone HCl (Narcan) 0.2 mg IVPUSH ONETIME PRN PRN Reason: Oversedation Stop: 08/02/16 17:26 Neostigmine Methylsulfate (Neostigmine) Confirm Administered Dose 5 mg .ROUTE .STK-MED ONE Stop: 08/02/16 09:33 Ondansetron HCl (Zofran) Confirm Administered Dose 4 mg .ROUTE .STK-MED ONE Stop: 08/02/16 09:31 Ondansetron HCl (Zofran) 4 mg IVPUSH ASDIRECTED PRN PRN Reason: NAUSEA Stop: 08/02/16 19:00 Potassium Chloride (Klor-Con M20) 40 meq PO ONETIME ONE Stop: 08/05/16 10:01 Last Admin: 08/05/16 11:45 Dose: 40 meq Povidone Iodine (Betadine 10% Soln) Confirm Administered Dose 1 ml .ROUTE .STK- MED ONE Stop: 08/02/16 07:26 Last Admin: 08/02/16 11:51 Dose: 25 ml Propofol (Diprivan 20 Ml) Confirm Administered Dose 200 mg .ROUTE .STK-MED ONE Stop: 08/02/16 09:31 Propofol (Diprivan 20 Ml) Confirm Administered Dose 600 mg .ROUTE .STK-MED ONE Stop: 08/02/16 11:19 Propofol (Diprivan 20 Ml) Confirm Administered Dose 600 mg .ROUTE .STK-MED ONE Stop: 08/02/16 12:33 Propofol (Diprivan 20 Ml) Confirm Administered Dose 600 mg .ROUTE .STK-MED ONE Stop: 08/02/16 13:17 Propofol (Diprivan 20 Ml) Confirm Administered Dose 600 mg .ROUTE .STK-MED ONE Stop: 08/02/16 14:21 Propofol (Diprivan 20 Ml) Confirm Administered Dose 400 mg .ROUTE .STK-MED ONE Stop: 08/02/16 15:13 Propofol (Diprivan 20 Ml) Confirm Administered Dose 600 mg .ROUTE .STK-MED ONE Stop: 08/02/16 16:31 Propranolol HCl (Inderal La) 80 mg PO DAILY [facility] Last Admin: 08/01/16 08:09 Dose: Not Given Rocuronium Rhame (Zemuron) Confirm Administered Dose 50 mg .ROUTE .STK-MED ONE Stop: 08/02/16 09:31 Sertraline HCl (Zoloft) 100 mg PO DAILY [facility] Sertraline HCl (Zoloft) 100 mg PO ONETIME ONE Stop: 07/31/16 22:31 Last Admin: 07/31/16 22:16 Dose: 100 mg Succinylcholine Chloride (Succinylcholine In Ns Pf) Confirm Administered Dose 200 mg .ROUTE .STK-MED ONE Stop: 08/02/16 09:31 Thrombin (Thrombin-Jmi) Confirm Administered Dose 10,000 unit .ROUTE .STK-MED ONE Stop: 08/02/16 07:26 Last Admin: 08/02/16 11:50 Dose: 10,000 unit Thrombin (Thrombin-Jmi) Confirm Administered Dose 5,000 unit .ROUTE .STK-MED ONE Stop: 08/02/16 13:01 Last Admin: 08/02/16 13:40 Dose: 5,000 unit Zolpidem Tartrate (Ambien) 5 mg PO BEDTIME PRN PRN Reason: Sleep - Exam Quality Assessment: DVT prophylaxis General: alert, oriented, cooperative, no acute distress Lungs: Clear to auscultation, Normal respiratory effort Cardiovascular: Regular Rate, Regular Rhythm Abdomen: bowel sounds present, soft, no tenderness, no distension Extremities: no edema Skin: warm, dry, intact - Problem List Review Problem List Initiated/Reviewed/Updated: Yes - My Orders Last 24 Hours: My Active Orders 08/05/16 16:00 Potassium Chloride [Klor-Con M20] 40 meq PO ONETIME ONE 08/05/16 16:30 GLUCOSE POC LAB TO COLLECT [POC] QIDACANDBED 08/05/16 21:00 GLUCOSE POC LAB TO COLLECT [POC] QIDACANDBED 08/06/16 07:30 GLUCOSE POC LAB TO COLLECT [POC] QIDACANDBED 08/06/16 11:30 GLUCOSE POC LAB TO COLLECT [POC] QIDACANDBED 08/06/16 16:30 GLUCOSE POC LAB TO COLLECT [POC] QIDACANDBED 08/06/16 21:00 GLUCOSE POC LAB TO COLLECT [POC] QIDACANDBED 08/07/16 07:30 GLUCOSE POC LAB TO COLLECT [POC] QIDACANDBED 08/07/16 11:30 GLUCOSE POC LAB TO COLLECT [POC] QIDACANDBED 08/07/16 16:30 GLUCOSE POC LAB TO COLLECT [POC] QIDACANDBED 08/07/16 21:00 GLUCOSE POC LAB TO COLLECT [POC] QIDACANDBED 08/08/16 07:30 GLUCOSE POC LAB TO COLLECT [POC] QIDACANDBED 08/08/16 11:30 GLUCOSE POC LAB TO COLLECT [POC] QIDACANDBED 08/08/16 16:30 GLUCOSE POC LAB TO COLLECT [POC] QIDACANDBED 08/08/16 21:00 GLUCOSE POC LAB TO COLLECT [POC] QIDACANDBED - Plan Plan:: ASSESSMENT AND RECOMMENDATIONS DECREASED SENSATION 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 Dorado TYPE 2 DIABETES MELLITUS-glucose levels have been better controlled over the past 24 hours with current management -4 times a day glucometers -Continue oral hypoglycemic therapy -Moderate-dose sliding scale NovoLog
[2016-08-05] MEDS ORDERED: Insulin Aspart 100 Units/ML 3 ML Pen SUBCUT ONE (16:58)
[2016-08-05] MEDS: Melatonin 3 MG Tab PO SCH (20:54)
[2016-08-05] MEDS: Amitriptyline 25 MG Tab PO SCH (20:54)
[2016-08-05] MEDS: atorvaSTATin 20 MG Tab PO SCH (20:54)
[2016-08-05] MEDS: Sertraline 50 MG Tab PO SCH (20:55)
[2016-08-05] MEDS: Propranolol 80 MG Cap.ER PO SCH (20:56)
[2016-08-06] MEDS: Diazepam 5 MG Tab PO PRN ×3 (05:05→17:54)
[2016-08-06] MEDS: Acetaminophen/oxyCODONE 325-5 MG Tab PO PRN ×4 (05:05→22:25)
[2016-08-06] MEDS: Pantoprazole 40 MG Tab.CR PO SCH (08:05)
[2016-08-06] MEDS: glipiZIDE 5 MG Tab.ER PO SCH (08:06)
[2016-08-06] MEDS: metFORMIN 500 MG Tab PO SCH ×2 (08:06→17:45)
[2016-08-06] MEDS: Magnesium Oxide 400 MG Tab PO SCH ×2 (08:07→20:51)
[2016-08-06] MEDS: Hydrochlorothiazide 12.5 MG Cap PO SCH (08:07)
[2016-08-06] MEDS: Gabapentin 300 MG Cap PO SCH ×3 (08:07→20:52)
[2016-08-06] MEDS: Ibuprofen 800 MG Tab PO SCH ×3 (08:07→20:51)
[2016-08-06] MEDS: amLODIPine 5 MG Tab PO SCH (08:08)
[2016-08-06] MEDS: Potassium Chloride 10 MEQ Cap.ER PO SCH (08:08)
[2016-08-06] MEDS: Diclofenac Sodium 1% Gel 100 GM Tube TOP SCH ×3 (08:14→20:53)
--- NOTE | 2016-08-06 08:18 | PCM.PN ---
- General Info Date of Service: 08/06/16 Functional Status: Reports: pain controlled, tolerating diet, ambulating, urinating - Review of Systems General: Reports: No Symptoms HEENT: Reports: no symptoms Pulmonary: Reports: no symptoms Cardiovascular: Reports: No Symptoms Gastrointestinal: Reports: No symptoms Genitourinary: Reports: no symptoms Musculoskeletal: Reports: neck pain Neurological: Reports: Numbness, Paresthesia, Tingling, Difficulty Walking, Weakness, Gait Disturbance Psychiatric: Reports: no symptoms - Patient Data Vitals - most recent: Last Vital Signs Temp 97.2 F 08/06/16 03:00 Pulse 88 08/06/16 03:00 Resp 18 08/06/16 03:00 BP 152/92 H 08/06/16 08:08 Pulse Ox 96 08/06/16 03:00 Weight - most recent: 210 lb 12.8 oz I&O - last 24 hours: Intake & Output 08/05/16 08/06/16 08/06/16 22:59 06:59 14:59 Intake Total 860 Balance 860 Med Orders - Current: Current Medications Al Hydroxide/Mg Hydroxide (Mag-Al Plus) 30 ml PO Q4H PRN PRN Reason: Indigestion Amitriptyline HCl (Elavil) 25 mg PO BEDTIME [facility] Last Admin: 08/05/16 20:54 Dose: 25 mg Amlodipine Besylate (Norvasc) 5 mg PO DAILY [facility] Last Admin: 08/06/16 08:08 Dose: 5 mg Atorvastatin Calcium (Lipitor) 40 mg PO BEDTIME [facility] Last Admin: 08/05/16 20:54 Dose: 40 mg Dextrose (Glutose 15) 15 gm PO ASDIRECTED PRN PRN Reason: Hypoglycemia Dextrose/Water (Dextrose 50% In Water) 50 ml IV ASDIRECTED PRN PRN Reason: Hypoglycemia Diazepam (Valium.) 5 mg PO QID PRN PRN Reason: Spasms Last Admin: 08/06/16 05:05 Dose: 5 mg Diclofenac Sodium (Voltaren 1% Gel) 0 gm TOP TID [facility] Last Admin: 08/06/16 08:14 Dose: Not Given Gabapentin (Neurontin) 900 mg PO 0900,1300 [facility] Last Admin: 08/06/16 08:07 Dose: 900 mg Gabapentin (Neurontin) 1,200 mg PO BEDTIME [facility] Last Admin: 08/05/16 20:56 Dose: 1,200 mg Glipizide (Glucotrol Xl) 10 mg PO DAILY [facility] Last Admin: 08/06/16 08:06 Dose: 10 mg Hydrochlorothiazide (Hydrochlorothiazide) 12.5 mg PO DAILY [facility] Last Admin: 08/06/16 08:07 Dose: 12.5 mg Hydromorphone HCl (Dilaudid) 1 mg IVPUSH Q2H PRN PRN Reason: Pain Ibuprofen (Motrin) 800 mg PO TID [facility] Last Admin: 08/06/16 08:07 Dose: 800 mg Insulin Aspart (Novolog) 0 unit SUBCUT ASDIRECTED [facility] PRN Reason: Protocol Last Admin: 08/05/16 21:02 Dose: 4 units Lorazepam (Ativan) 0 mg IVPUSH Q6H PRN PRN Reason: Anxiety Magnesium Hydroxide (Milk Of Magnesia) 30 ml PO BID PRN PRN Reason: Constipation Last Admin: 08/05/16 11:42 Dose: 30 ml Magnesium Oxide (Magnesium Oxide) 400 mg PO BID [facility] Last Admin: 08/06/16 08:07 Dose: 400 mg Melatonin (Melatonin) 9 mg PO BEDTIME [facility] Last Admin: 08/05/16 20:54 Dose: 9 mg Metformin HCl (Glucophage) 1,000 mg PO BIDMEALS [facility] Last Admin: 08/06/16 08:06 Dose: 1,000 mg Ondansetron HCl (Zofran) 8 mg IVPUSH Q4H PRN PRN Reason: Nausea/Vomiting Oxycodone/Acetaminophen (Percocet 325-5 Mg) 2 tab PO Q4H PRN PRN Reason: Pain Last Admin: 08/06/16 05:05 Dose: 2 tab Pantoprazole Sodium (Protonix) 40 mg PO ACBREAKFAST [facility] Last Admin: 08/06/16 08:05 Dose: 40 mg Potassium Chloride (Potassium Chloride) 10 meq PO DAILY [facility] Last Admin: 08/06/16 08:08 Dose: 10 meq Propranolol HCl (Inderal La) 80 mg PO BEDTIME [facility] Last Admin: 08/05/16 20:56 Dose: 80 mg Senna (Senna) 8.6 mg PO BID PRN PRN Reason: Constipation Last Admin: 08/05/16 11:42 Dose: 8.6 mg Sertraline HCl (Zoloft) 100 mg PO BEDTIME [facility] Last Admin: 08/05/16 20:55 Dose: 100 mg Sodium Chloride (Saline Flush) 10 ml FLUSH ASDIRECTED PRN PRN Reason: Keep Vein Open Tramadol HCl (Ultram) 100 mg PO Q6H PRN PRN Reason: Pain Last Admin: 08/01/16 21:21 Dose: 100 mg Zolpidem Tartrate (Ambien) 5 mg PO BEDTIME PRN PRN Reason: Insomnia Discontinued Medications Alprazolam (Xanax) 0.5 mg PO NOW ONE Stop: 08/01/16 19:56 Last Admin: 08/01/16 21:01 Dose: 0.5 mg Bupivacaine HCl/Epinephrine Bitart (Marcaine 0.5%/Epinephrine 1:200,000) Confirm Administered Dose 50 ml .ROUTE .STK-MED ONE Stop: 08/02/16 11:52 Bupivacaine HCl/Epinephrine Bitart (Marcaine 0.5%/Epinephrine 1:200,000) 40 ml INJECT .STK-MED ONE Stop: 08/02/16 11:55 Last Admin: 08/02/16 11:54 Dose: 40 ml Cyclobenzaprine HCl (Flexeril) 10 mg PO TID [facility] Last Admin: 08/02/16 14:06 Dose: Not Given Dexamethasone (Dexamethasone) 8 mg IVPUSH Q6H [facility] Last Admin: 08/01/16 08:21 Dose: 8 mg Dexamethasone (Dexamethasone) Confirm Administered Dose 4 mg .ROUTE .STK-MED ONE Stop: 08/02/16 09:31 Dexamethasone (Dexamethasone) 8 mg IVPUSH Q6H [facility] Stop: 08/03/16 18:01 Last Admin: 08/03/16 17:12 Dose: 8 mg Diazepam (Valium.) 5 mg PO ASDIRECTED ONE Stop: 08/01/16 10:01 Last Admin: 08/01/16 10:30 Dose: Not Given Diazepam (Valium) 5 mg IVPUSH Q6H PRN PRN Reason: Spasms Last Admin: 08/05/16 04:59 Dose: 5 mg Fentanyl (Sublimaze) Confirm Administered Dose 500 mcg .ROUTE .STK-MED ONE Stop: 08/02/16 09:32 Fentanyl (Sublimaze) Confirm Administered Dose 250 mcg .ROUTE .STK-MED ONE Stop: 08/02/16 11:19 Fentanyl (Sublimaze) Confirm Administered Dose 250 mcg .ROUTE .STK-MED ONE Stop: 08/02/16 12:33 Fentanyl (Sublimaze) Confirm Administered Dose 250 mcg .ROUTE .STK-MED ONE Stop: 08/02/16 14:23 Fentanyl (Sublimaze) Confirm Administered Dose 250 mcg .ROUTE .STK-MED ONE Stop: 08/02/16 15:45 Fentanyl (Sublimaze) Confirm Administered Dose 250 mcg .ROUTE .STK-MED ONE Stop: 08/02/16 16:08 Fentanyl (Sublimaze) 50 - 100 mcg IVPUSH ASDIRECTED PRN PRN Reason: PAIN Stop: 08/02/16 19:00 Gabapentin (Neurontin) 300 mg PO BID [facility] Last Admin: 08/01/16 00:15 Dose: Not Given Gadoteridol (Prohance) 20 ml IV . DIRECTED PRN PRN Reason: RADIOLOGY EXAM Stop: 08/02/16 10:46 Last Admin: 08/01/16 11:13 Dose: 20 ml Glycopyrrolate () Confirm Administered Dose 1 mg .ROUTE .STK-MED ONE Stop: 08/02/16 09:33 Hydromorphone HCl (Dilaudid) 0.5 - 1 mg IV ASDIRECTED PRN PRN Reason: PAIN Stop: 08/02/16 19:00 Last Admin: 08/02/16 18:52 Dose: 1 mg Hydroxyzine HCl (Vistaril) 50 - 100 mg IM ASDIRECTED PRN PRN Reason: PAIN Stop: 08/02/16 19:00 Magnesium Sulfate 2 gm/ Premix 50 mls @ 25 mls/hr IV ONETIME ONE Stop: 08/01/16 18:59 Last Admin: 08/01/16 17:20 Dose: 25 mls/hr Lactated Ringer's (Ringers, Lactated) 1,000 mls @ 75 mls/hr IV ASDIRECTED [facility] Last Admin: 08/05/16 05:04 Dose: 75 mls/hr Cefazolin Sodium/Dextrose 2 gm (/ Premix) 50 mls @ 100 mls/hr IV PREPRO ONE Stop: 08/02/16 08:59 Last Admin: 08/02/16 12:48 Dose: Not Given Tranexamic Acid 950 mg/ Sodium (Chloride) 59.5 mls @ 238 mls/hr IV Q3H [facility] Stop: 08/02/16 12:14 Last Admin: 08/02/16 19:24 Dose: Not Given Lactated Ringer's (Ringers, Lactated) Confirm Administered Dose 1,000 mls @ as directed .ROUTE .STK-MED ONE Stop: 08/02/16 15:32 Lactated Ringer's (Ringers, Lactated) Confirm Administered Dose 1,000 mls @ as directed .ROUTE .STK-MED ONE Stop: 08/02/16 15:32 Lactated Ringer's (Ringers, Lactated) Confirm Administered Dose 1,000 mls @ as directed .ROUTE .STK-MED ONE Stop: 08/02/16 15:37 Cefazolin Sodium/Dextrose 2 gm (/ Premix) 50 mls @ 100 mls/hr IV Q8H [facility] Stop: 08/03/16 12:29 Last Admin: 08/03/16 03:52 Dose: 100 mls/hr Cefazolin Sodium 2 gm/ Sodium (Chloride) 50 mls @ 100 mls/hr IV ONETIME ONE Stop: 08/03/16 12:29 Last Admin: 08/03/16 12:02 Dose: 100 mls/hr Insulin Aspart (Novolog) 0 unit SUBCUT ASDIRECTED [facility] PRN Reason: Protocol Last Admin: 08/04/16 08:28 Dose: 3 units Insulin Aspart (Novolog) 10 unit SUBCUT ONETIME ONE Stop: 08/05/16 16:59 Last Admin: 08/05/16 17:13 Dose: 10 unit Labetalol HCl (Normodyne) 5 - 15 mg IVPUSH ASDIRECTED PRN PRN Reason: BP Stop: 08/02/16 19:00 Meperidine HCl (Demerol) 100 mg IM ASDIRECTED PRN PRN Reason: PAIN Stop: 08/02/16 19:00 Metoclopramide HCl (Reglan) 10 mg IVPUSH ASDIRECTED PRN PRN Reason: NAUSEA Stop: 08/02/16 19:00 Midazolam HCl (Versed 1 Mg/Ml) Confirm Administered Dose 2 mg .ROUTE .STK-MED ONE Stop: 08/02/16 09:32 Morphine Sulfate (Morphine) 1 - 4 mg IVPUSH ASDIRECTED PRN PRN Reason: PAIN Stop: 08/02/16 19:00 Naloxone HCl (Narcan) 0.2 mg IVPUSH ONETIME PRN PRN Reason: Oversedation Stop: 08/02/16 17:26 Neostigmine Methylsulfate (Neostigmine) Confirm Administered Dose 5 mg .ROUTE .STK-MED ONE Stop: 08/02/16 09:33 Ondansetron HCl (Zofran) Confirm Administered Dose 4 mg .ROUTE .STK-MED ONE Stop: 08/02/16 09:31 Ondansetron HCl (Zofran) 4 mg IVPUSH ASDIRECTED PRN PRN Reason: NAUSEA Stop: 08/02/16 19:00 Potassium Chloride (Klor-Con M20) 40 meq PO ONETIME ONE Stop: 08/05/16 10:01 Last Admin: 08/05/16 11:45 Dose: 40 meq Potassium Chloride (Klor-Con M20) 40 meq PO ONETIME ONE Stop: 08/05/16 16:01 Last Admin: 08/05/16 16:36 Dose: 40 meq Povidone Iodine (Betadine 10% Soln) Confirm Administered Dose 1 ml .ROUTE .STK- MED ONE Stop: 08/02/16 07:26 Last Admin: 08/02/16 11:51 Dose: 25 ml Propofol (Diprivan 20 Ml) Confirm Administered Dose 200 mg .ROUTE .STK-MED ONE Stop: 08/02/16 09:31 Propofol (Diprivan 20 Ml) Confirm Administered Dose 600 mg .ROUTE .STK-MED ONE Stop: 08/02/16 11:19 Propofol (Diprivan 20 Ml) Confirm Administered Dose 600 mg .ROUTE .STK-MED ONE Stop: 08/02/16 12:33 Propofol (Diprivan 20 Ml) Confirm Administered Dose 600 mg .ROUTE .STK-MED ONE Stop: 08/02/16 13:17 Propofol (Diprivan 20 Ml) Confirm Administered Dose 600 mg .ROUTE .STK-MED ONE Stop: 08/02/16 14:21 Propofol (Diprivan 20 Ml) Confirm Administered Dose 400 mg .ROUTE .STK-MED ONE Stop: 08/02/16 15:13 Propofol (Diprivan 20 Ml) Confirm Administered Dose 600 mg .ROUTE .STK-MED ONE Stop: 08/02/16 16:31 Propranolol HCl (Inderal La) 80 mg PO DAILY [facility] Last Admin: 08/01/16 08:09 Dose: Not Given Rocuronium [place] (Zemuron) Confirm Administered Dose 50 mg .ROUTE .STK-MED ONE Stop: 08/02/16 09:31 Sertraline HCl (Zoloft) 100 mg PO DAILY [facility] Sertraline HCl (Zoloft) 100 mg PO ONETIME ONE Stop: 07/31/16 22:31 Last Admin: 07/31/16 22:16 Dose: 100 mg Succinylcholine Chloride (Succinylcholine In Ns Pf) Confirm Administered Dose 200 mg .ROUTE .STK-MED ONE Stop: 08/02/16 09:31 Thrombin (Thrombin-Jmi) Confirm Administered Dose 10,000 unit .ROUTE .STK-MED ONE Stop: 08/02/16 07:26 Last Admin: 08/02/16 11:50 Dose: 10,000 unit Thrombin (Thrombin-Jmi) Confirm Administered Dose 5,000 unit .ROUTE .STK-MED ONE Stop: 08/02/16 13:01 Last Admin: 08/02/16 13:40 Dose: 5,000 unit Zolpidem Tartrate (Ambien) 5 mg PO BEDTIME PRN PRN Reason: Sleep - Exam General: alert, oriented HEENT: Pupils equal, Pupils reactive, EOMI, Mucous membr. moist/pink Neck: supple Skin: warm, intact, moist Wound/Incisions: healing well, drainage Neurological: no new focal deficit Psy/Mental Status: alert, normal affect, normal mood (Pt feels steadier than yesterday. Showered by self. Walking well with walker.) - Problem List & Annotations (1) History of cervical spinal arthrodesis SNOMED Code(s): 981267527, 088799579 Code(s): Z98.1 - ARTHRODESIS STATUS Status: Acute Current Visit: Yes (2) Myelopathy Status: Acute Current Visit: Yes - Problem List Review Problem List Initiated/Reviewed/Updated: Yes - My Orders Last 24 Hours: My Active Orders 08/05/16 10:37 Diazepam [Valium] 5 mg PO QID PRN 08/05/16 12:29 Dressing Change [Wound Care] [RC] Q12H 08/05/16 13:44 Convert IV to Saline Lock [OM.PC] Routine - Plan Plan:: A: POD 4 PCF P: continue bid dressing change, pt, ot, pain control, plan to dc to acute care tomrrow
[2016-08-06] MEDS: traMADol 50 MG Tab PO PRN (08:19)
[2016-08-06] MEDS: Insulin Aspart 100 Units/ML 3 ML Pen SUBCUT SCH ×4 (09:44→21:10)
[2016-08-06] MEDS: Magnesium Hydroxide 400 MG/5 ML Susp 30 ML Cup PO PRN ×2 (09:46→17:54)
--- NOTE | 2016-08-06 15:08 | PCM.PN ---
- General Info Date of Service: 08/06/16 Functional Status: Reports: pain controlled, ambulating, urinating - Review of Systems General: Reports: Weakness. Denies: Fever, Chills Pulmonary: Reports: no symptoms Cardiovascular: Reports: No Symptoms Gastrointestinal: Reports: No symptoms Systems Review Comment:: This patient has remained stable over the past 24 hours, vital signs have been good and she has remained afebrile. Blood glucose levels have improved with current management. - Patient Data Vitals - most recent: Last Vital Signs Temp 97.1 F 08/06/16 14:57 Pulse 88 08/06/16 14:57 Resp 18 08/06/16 14:57 BP 114/78 08/06/16 14:57 Pulse Ox 93 L 08/06/16 14:57 Weight - most recent: 210 lb 12.8 oz I&O - last 24 hours: Intake & Output 08/06/16 08/06/16 08/06/16 06:59 14:59 22:59 Intake Total 375 Balance 375 Med Orders - Current: Current Medications Al Hydroxide/Mg Hydroxide (Mag-Al Plus) 30 ml PO Q4H PRN PRN Reason: Indigestion Amitriptyline HCl (Elavil) 25 mg PO BEDTIME [facility] Last Admin: 08/05/16 20:54 Dose: 25 mg Amlodipine Besylate (Norvasc) 5 mg PO DAILY [facility] Last Admin: 08/06/16 08:08 Dose: 5 mg Atorvastatin Calcium (Lipitor) 40 mg PO BEDTIME [facility] Last Admin: 08/05/16 20:54 Dose: 40 mg Dextrose (Glutose 15) 15 gm PO ASDIRECTED PRN PRN Reason: Hypoglycemia Dextrose/Water (Dextrose 50% In Water) 50 ml IV ASDIRECTED PRN PRN Reason: Hypoglycemia Diazepam (Valium.) 5 mg PO QID PRN PRN Reason: Spasms Last Admin: 08/06/16 11:54 Dose: 5 mg Diclofenac Sodium (Voltaren 1% Gel) 0 gm TOP TID [facility] Last Admin: 08/06/16 15:03 Dose: Not Given Gabapentin (Neurontin) 900 mg PO 0900,1300 [facility] Last Admin: 08/06/16 12:33 Dose: 900 mg Gabapentin (Neurontin) 1,200 mg PO BEDTIME [facility] Last Admin: 08/05/16 20:56 Dose: 1,200 mg Glipizide (Glucotrol Xl) 10 mg PO DAILY [facility] Last Admin: 08/06/16 08:06 Dose: 10 mg Hydrochlorothiazide (Hydrochlorothiazide) 12.5 mg PO DAILY [facility] Last Admin: 08/06/16 08:07 Dose: 12.5 mg Hydromorphone HCl (Dilaudid) 1 mg IVPUSH Q2H PRN PRN Reason: Pain Ibuprofen (Motrin) 800 mg PO TID [facility] Last Admin: 08/06/16 15:01 Dose: 800 mg Insulin Aspart (Novolog) 0 unit SUBCUT ASDIRECTED [facility] PRN Reason: Protocol Last Admin: 08/06/16 12:27 Dose: 2 units Lorazepam (Ativan) 0 mg IVPUSH Q6H PRN PRN Reason: Anxiety Magnesium Hydroxide (Milk Of Magnesia) 30 ml PO BID PRN PRN Reason: Constipation Last Admin: 08/06/16 09:46 Dose: 30 ml Magnesium Oxide (Magnesium Oxide) 400 mg PO BID [facility] Last Admin: 08/06/16 08:07 Dose: 400 mg Melatonin (Melatonin) 9 mg PO BEDTIME [facility] Last Admin: 08/05/16 20:54 Dose: 9 mg Metformin HCl (Glucophage) 1,000 mg PO BIDMEALS [facility] Last Admin: 08/06/16 08:06 Dose: 1,000 mg Ondansetron HCl (Zofran) 8 mg IVPUSH Q4H PRN PRN Reason: Nausea/Vomiting Oxycodone/Acetaminophen (Percocet 325-5 Mg) 2 tab PO Q4H PRN PRN Reason: Pain Last Admin: 08/06/16 11:54 Dose: 2 tab Pantoprazole Sodium (Protonix) 40 mg PO ACBREAKFAST [facility] Last Admin: 08/06/16 08:05 Dose: 40 mg Potassium Chloride (Potassium Chloride) 10 meq PO DAILY [facility] Last Admin: 08/06/16 08:08 Dose: 10 meq Propranolol HCl (Inderal La) 80 mg PO BEDTIME [facility] Last Admin: 08/05/16 20:56 Dose: 80 mg Senna (Senna) 8.6 mg PO BID PRN PRN Reason: Constipation Last Admin: 08/05/16 11:42 Dose: 8.6 mg Sertraline HCl (Zoloft) 100 mg PO BEDTIME [facility] Last Admin: 08/05/16 20:55 Dose: 100 mg Sodium Chloride (Saline Flush) 10 ml FLUSH ASDIRECTED PRN PRN Reason: Keep Vein Open Tramadol HCl (Ultram) 100 mg PO Q6H PRN PRN Reason: Pain Last Admin: 08/06/16 08:19 Dose: 100 mg Zolpidem Tartrate (Ambien) 5 mg PO BEDTIME PRN PRN Reason: Insomnia Discontinued Medications Alprazolam (Xanax) 0.5 mg PO NOW ONE Stop: 08/01/16 19:56 Last Admin: 08/01/16 21:01 Dose: 0.5 mg Bupivacaine HCl/Epinephrine Bitart (Marcaine 0.5%/Epinephrine 1:200,000) Confirm Administered Dose 50 ml .ROUTE .STK-MED ONE Stop: 08/02/16 11:52 Bupivacaine HCl/Epinephrine Bitart (Marcaine 0.5%/Epinephrine 1:200,000) 40 ml INJECT .STK-MED ONE Stop: 08/02/16 11:55 Last Admin: 08/02/16 11:54 Dose: 40 ml Cyclobenzaprine HCl (Flexeril) 10 mg PO TID [facility] Last Admin: 08/02/16 14:06 Dose: Not Given Dexamethasone (Dexamethasone) 8 mg IVPUSH Q6H [facility] Last Admin: 08/01/16 08:21 Dose: 8 mg Dexamethasone (Dexamethasone) Confirm Administered Dose 4 mg .ROUTE .STK-MED ONE Stop: 08/02/16 09:31 Dexamethasone (Dexamethasone) 8 mg IVPUSH Q6H [facility] Stop: 08/03/16 18:01 Last Admin: 08/03/16 17:12 Dose: 8 mg Diazepam (Valium.) 5 mg PO ASDIRECTED ONE Stop: 08/01/16 10:01 Last Admin: 08/01/16 10:30 Dose: Not Given Diazepam (Valium) 5 mg IVPUSH Q6H PRN PRN Reason: Spasms Last Admin: 08/05/16 04:59 Dose: 5 mg Fentanyl (Sublimaze) Confirm Administered Dose 500 mcg .ROUTE .STK-MED ONE Stop: 08/02/16 09:32 Fentanyl (Sublimaze) Confirm Administered Dose 250 mcg .ROUTE .STK-MED ONE Stop: 08/02/16 11:19 Fentanyl (Sublimaze) Confirm Administered Dose 250 mcg .ROUTE .STK-MED ONE Stop: 08/02/16 12:33 Fentanyl (Sublimaze) Confirm Administered Dose 250 mcg .ROUTE .STK-MED ONE Stop: 08/02/16 14:23 Fentanyl (Sublimaze) Confirm Administered Dose 250 mcg .ROUTE .STK-MED ONE Stop: 08/02/16 15:45 Fentanyl (Sublimaze) Confirm Administered Dose 250 mcg .ROUTE .STK-MED ONE Stop: 08/02/16 16:08 Fentanyl (Sublimaze) 50 - 100 mcg IVPUSH ASDIRECTED PRN PRN Reason: PAIN Stop: 08/02/16 19:00 Gabapentin (Neurontin) 300 mg PO BID [facility] Last Admin: 08/01/16 00:15 Dose: Not Given Gadoteridol (Prohance) 20 ml IV . DIRECTED PRN PRN Reason: RADIOLOGY EXAM Stop: 08/02/16 10:46 Last Admin: 08/01/16 11:13 Dose: 20 ml Glycopyrrolate () Confirm Administered Dose 1 mg .ROUTE .STK-MED ONE Stop: 08/02/16 09:33 Hydromorphone HCl (Dilaudid) 0.5 - 1 mg IV ASDIRECTED PRN PRN Reason: PAIN Stop: 08/02/16 19:00 Last Admin: 08/02/16 18:52 Dose: 1 mg Hydroxyzine HCl (Vistaril) 50 - 100 mg IM ASDIRECTED PRN PRN Reason: PAIN Stop: 08/02/16 19:00 Magnesium Sulfate 2 gm/ Premix 50 mls @ 25 mls/hr IV ONETIME ONE Stop: 08/01/16 18:59 Last Admin: 08/01/16 17:20 Dose: 25 mls/hr Lactated Ringer's (Ringers, Lactated) 1,000 mls @ 75 mls/hr IV ASDIRECTED [facility] Last Admin: 08/05/16 05:04 Dose: 75 mls/hr Cefazolin Sodium/Dextrose 2 gm (/ Premix) 50 mls @ 100 mls/hr IV PREPRO ONE Stop: 08/02/16 08:59 Last Admin: 08/02/16 12:48 Dose: Not Given Tranexamic Acid 950 mg/ Sodium (Chloride) 59.5 mls @ 238 mls/hr IV Q3H [facility] Stop: 08/02/16 12:14 Last Admin: 08/02/16 19:24 Dose: Not Given Lactated Ringer's (Ringers, Lactated) Confirm Administered Dose 1,000 mls @ as directed .ROUTE .STK-MED ONE Stop: 08/02/16 15:32 Lactated Ringer's (Ringers, Lactated) Confirm Administered Dose 1,000 mls @ as directed .ROUTE .STK-MED ONE Stop: 08/02/16 15:32 Lactated Ringer's (Ringers, Lactated) Confirm Administered Dose 1,000 mls @ as directed .ROUTE .STK-MED ONE Stop: 08/02/16 15:37 Cefazolin Sodium/Dextrose 2 gm (/ Premix) 50 mls @ 100 mls/hr IV Q8H [facility] Stop: 08/03/16 12:29 Last Admin: 08/03/16 03:52 Dose: 100 mls/hr Cefazolin Sodium 2 gm/ Sodium (Chloride) 50 mls @ 100 mls/hr IV ONETIME ONE Stop: 08/03/16 12:29 Last Admin: 08/03/16 12:02 Dose: 100 mls/hr Insulin Aspart (Novolog) 0 unit SUBCUT ASDIRECTED [facility] PRN Reason: Protocol Last Admin: 08/04/16 08:28 Dose: 3 units Insulin Aspart (Novolog) 10 unit SUBCUT ONETIME ONE Stop: 08/05/16 16:59 Last Admin: 08/05/16 17:13 Dose: 10 unit Labetalol HCl (Normodyne) 5 - 15 mg IVPUSH ASDIRECTED PRN PRN Reason: BP Stop: 08/02/16 19:00 Meperidine HCl (Demerol) 100 mg IM ASDIRECTED PRN PRN Reason: PAIN Stop: 08/02/16 19:00 Metoclopramide HCl (Reglan) 10 mg IVPUSH ASDIRECTED PRN PRN Reason: NAUSEA Stop: 08/02/16 19:00 Midazolam HCl (Versed 1 Mg/Ml) Confirm Administered Dose 2 mg .ROUTE .STK-MED ONE Stop: 08/02/16 09:32 Morphine Sulfate (Morphine) 1 - 4 mg IVPUSH ASDIRECTED PRN PRN Reason: PAIN Stop: 08/02/16 19:00 Naloxone HCl (Narcan) 0.2 mg IVPUSH ONETIME PRN PRN Reason: Oversedation Stop: 08/02/16 17:26 Neostigmine Methylsulfate (Neostigmine) Confirm Administered Dose 5 mg .ROUTE .STK-MED ONE Stop: 08/02/16 09:33 Ondansetron HCl (Zofran) Confirm Administered Dose 4 mg .ROUTE .STK-MED ONE Stop: 08/02/16 09:31 Ondansetron HCl (Zofran) 4 mg IVPUSH ASDIRECTED PRN PRN Reason: NAUSEA Stop: 08/02/16 19:00 Potassium Chloride (Klor-Con M20) 40 meq PO ONETIME ONE Stop: 08/05/16 10:01 Last Admin: 08/05/16 11:45 Dose: 40 meq Potassium Chloride (Klor-Con M20) 40 meq PO ONETIME ONE Stop: 08/05/16 16:01 Last Admin: 08/05/16 16:36 Dose: 40 meq Povidone Iodine (Betadine 10% Soln) Confirm Administered Dose 1 ml .ROUTE .STK- MED ONE Stop: 08/02/16 07:26 Last Admin: 08/02/16 11:51 Dose: 25 ml Propofol (Diprivan 20 Ml) Confirm Administered Dose 200 mg .ROUTE .STK-MED ONE Stop: 08/02/16 09:31 Propofol (Diprivan 20 Ml) Confirm Administered Dose 600 mg .ROUTE .STK-MED ONE Stop: 08/02/16 11:19 Propofol (Diprivan 20 Ml) Confirm Administered Dose 600 mg .ROUTE .STK-MED ONE Stop: 08/02/16 12:33 Propofol (Diprivan 20 Ml) Confirm Administered Dose 600 mg .ROUTE .STK-MED ONE Stop: 08/02/16 13:17 Propofol (Diprivan 20 Ml) Confirm Administered Dose 600 mg .ROUTE .STK-MED ONE Stop: 08/02/16 14:21 Propofol (Diprivan 20 Ml) Confirm Administered Dose 400 mg .ROUTE .STK-MED ONE Stop: 08/02/16 15:13 Propofol (Diprivan 20 Ml) Confirm Administered Dose 600 mg .ROUTE .STK-MED ONE Stop: 08/02/16 16:31 Propranolol HCl (Inderal La) 80 mg PO DAILY [facility] Last Admin: 08/01/16 08:09 Dose: Not Given Rocuronium [place] (Zemuron) Confirm Administered Dose 50 mg .ROUTE .STK-MED ONE Stop: 08/02/16 09:31 Sertraline HCl (Zoloft) 100 mg PO DAILY [facility] Sertraline HCl (Zoloft) 100 mg PO ONETIME ONE Stop: 07/31/16 22:31 Last Admin: 07/31/16 22:16 Dose: 100 mg Succinylcholine Chloride (Succinylcholine In Ns Pf) Confirm Administered Dose 200 mg .ROUTE .STK-MED ONE Stop: 08/02/16 09:31 Thrombin (Thrombin-Jmi) Confirm Administered Dose 10,000 unit .ROUTE .STK-MED ONE Stop: 08/02/16 07:26 Last Admin: 08/02/16 11:50 Dose: 10,000 unit Thrombin (Thrombin-Jmi) Confirm Administered Dose 5,000 unit .ROUTE .STK-MED ONE Stop: 08/02/16 13:01 Last Admin: 08/02/16 13:40 Dose: 5,000 unit Zolpidem Tartrate (Ambien) 5 mg PO BEDTIME PRN PRN Reason: Sleep - Exam General: alert, oriented, cooperative, mild distress Lungs: Clear to auscultation, Normal respiratory effort Cardiovascular: Regular Rate, Regular Rhythm Abdomen: bowel sounds present, soft, no tenderness, no distension Extremities: no edema - Problem List Review Problem List Initiated/Reviewed/Updated: Yes - My Orders Last 24 Hours: My Active Orders 08/06/16 16:30 GLUCOSE POC LAB TO COLLECT [POC] QIDACANDBED 08/06/16 21:00 GLUCOSE POC LAB TO COLLECT [POC] QIDACANDBED 08/07/16 07:30 GLUCOSE POC LAB TO COLLECT [POC] QIDACANDBED 08/07/16 11:30 GLUCOSE POC LAB TO COLLECT [POC] QIDACANDBED 08/07/16 16:30 GLUCOSE POC LAB TO COLLECT [POC] QIDACANDBED 08/07/16 21:00 GLUCOSE POC LAB TO COLLECT [POC] QIDACANDBED 08/08/16 07:30 GLUCOSE POC LAB TO COLLECT [POC] QIDACANDBED 08/08/16 11:30 GLUCOSE POC LAB TO COLLECT [POC] QIDACANDBED 08/08/16 16:30 GLUCOSE POC LAB TO COLLECT [POC] QIDACANDBED 08/08/16 21:00 GLUCOSE POC LAB TO COLLECT [POC] QIDACANDBED - Plan Plan:: ASSESSMENT AND RECOMMENDATIONS DECREASED SENSATION 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 Dorado TYPE 2 DIABETES MELLITUS-further improvement in glucose levels -4 times a day glucometers -We'll plan for discharge on her usual oral hypoglycemic medications -Continue moderate sliding scale NovoLog until discharge
[2016-08-06] MEDS: Melatonin 3 MG Tab PO SCH (20:51)
[2016-08-06] MEDS: Propranolol 80 MG Cap.ER PO SCH (20:51)
[2016-08-06] MEDS: Amitriptyline 25 MG Tab PO SCH (20:51)
[2016-08-06] MEDS: atorvaSTATin 20 MG Tab PO SCH (20:51)
[2016-08-06] MEDS: Sertraline 50 MG Tab PO SCH (20:53)
[2016-08-07] MEDS: Diazepam 5 MG Tab PO PRN ×2 (01:31→10:11)
[2016-08-07] MEDS: Acetaminophen/oxyCODONE 325-5 MG Tab PO PRN ×2 (06:08→10:11)
[2016-08-07] MEDS: Pantoprazole 40 MG Tab.CR PO SCH (07:19)
[2016-08-07] MEDS: metFORMIN 500 MG Tab PO SCH (10:00)
[2016-08-07] MEDS: Gabapentin 300 MG Cap PO SCH (10:00)
[2016-08-07] MEDS: Ibuprofen 800 MG Tab PO SCH (10:00)
[2016-08-07] MEDS: Potassium Chloride 10 MEQ Cap.ER PO SCH (10:01)
[2016-08-07] MEDS: Magnesium Oxide 400 MG Tab PO SCH (10:01)
[2016-08-07] MEDS: glipiZIDE 5 MG Tab.ER PO SCH (10:01)
[2016-08-07] MEDS: Diclofenac Sodium 1% Gel 100 GM Tube TOP SCH (10:02)
[2016-08-07] MEDS: Hydrochlorothiazide 12.5 MG Cap PO SCH (10:03)
[2016-08-07 10:04] VITALS: BP 126/77
[2016-08-07] MEDS: amLODIPine 5 MG Tab PO SCH (10:04)
[2016-08-07] MEDS: Sennosides 8.6 MG Tab PO PRN (10:10)
[2016-08-07] MEDS: Magnesium Hydroxide 400 MG/5 ML Susp 30 ML Cup PO PRN (10:10)
[2016-08-07] MEDS: Insulin Aspart 100 Units/ML 3 ML Pen SUBCUT SCH (10:14)
--- NOTE | 2016-08-07 10:59 | PCM.PN ---
- General Info Date of Service: 08/07/16 Functional Status: Reports: incentive spirometry - Review of Systems General: Reports: No Symptoms HEENT: Reports: no symptoms Pulmonary: Reports: no symptoms Cardiovascular: Reports: No Symptoms Gastrointestinal: Reports: No symptoms Genitourinary: Reports: no symptoms Musculoskeletal: Reports: neck pain Skin: Reports: no symptoms Neurological: Reports: Numbness, Tingling, Difficulty Walking, Weakness, Gait Disturbance Psychiatric: Reports: no symptoms - Patient Data Vitals - most recent: Last Vital Signs Temp 97.5 F 08/07/16 07:00 Pulse 89 08/07/16 07:00 Resp 20 08/07/16 07:00 BP 126/77 08/07/16 10:04 Pulse Ox 89 L 08/07/16 07:00 Weight - most recent: 210 lb 12.8 oz I&O - last 24 hours: Intake & Output 08/06/16 08/07/16 08/07/16 22:59 06:59 14:59 Intake Total 640 480 Balance 640 480 Med Orders - Current: Current Medications Al Hydroxide/Mg Hydroxide (Mag-Al Plus) 30 ml PO Q4H PRN PRN Reason: Indigestion Amitriptyline HCl (Elavil) 25 mg PO BEDTIME [facility] Last Admin: 08/06/16 20:51 Dose: 25 mg Amlodipine Besylate (Norvasc) 5 mg PO DAILY [facility] Last Admin: 08/07/16 10:04 Dose: 5 mg Atorvastatin Calcium (Lipitor) 40 mg PO BEDTIME [facility] Last Admin: 08/06/16 20:51 Dose: 40 mg Dextrose (Glutose 15) 15 gm PO ASDIRECTED PRN PRN Reason: Hypoglycemia Dextrose/Water (Dextrose 50% In Water) 50 ml IV ASDIRECTED PRN PRN Reason: Hypoglycemia Diazepam (Valium.) 5 mg PO QID PRN PRN Reason: Spasms Last Admin: 08/07/16 10:11 Dose: 5 mg Diclofenac Sodium (Voltaren 1% Gel) 0 gm TOP TID [facility] Last Admin: 08/07/16 10:02 Dose: Not Given Gabapentin (Neurontin) 900 mg PO 0900,1300 [facility] Last Admin: 08/07/16 10:00 Dose: 900 mg Gabapentin (Neurontin) 1,200 mg PO BEDTIME [facility] Last Admin: 08/06/16 20:52 Dose: 1,200 mg Glipizide (Glucotrol Xl) 10 mg PO DAILY [facility] Last Admin: 08/07/16 10:01 Dose: 10 mg Hydrochlorothiazide (Hydrochlorothiazide) 12.5 mg PO DAILY [facility] Last Admin: 08/07/16 10:03 Dose: 12.5 mg Hydromorphone HCl (Dilaudid) 1 mg IVPUSH Q2H PRN PRN Reason: Pain Ibuprofen (Motrin) 800 mg PO TID [facility] Last Admin: 08/07/16 10:00 Dose: 800 mg Insulin Aspart (Novolog) 0 unit SUBCUT ASDIRECTED [facility] PRN Reason: Protocol Last Admin: 08/07/16 10:14 Dose: 4 units Lorazepam (Ativan) 0 mg IVPUSH Q6H PRN PRN Reason: Anxiety Magnesium Hydroxide (Milk Of Magnesia) 30 ml PO BID PRN PRN Reason: Constipation Last Admin: 08/07/16 10:10 Dose: 30 ml Magnesium Oxide (Magnesium Oxide) 400 mg PO BID [facility] Last Admin: 08/07/16 10:01 Dose: 400 mg Melatonin (Melatonin) 9 mg PO BEDTIME [facility] Last Admin: 08/06/16 20:51 Dose: 9 mg Metformin HCl (Glucophage) 1,000 mg PO BIDMEALS [facility] Last Admin: 08/07/16 10:00 Dose: 1,000 mg Ondansetron HCl (Zofran) 8 mg IVPUSH Q4H PRN PRN Reason: Nausea/Vomiting Oxycodone/Acetaminophen (Percocet 325-5 Mg) 2 tab PO Q4H PRN PRN Reason: Pain Last Admin: 08/07/16 10:11 Dose: 2 tab Pantoprazole Sodium (Protonix) 40 mg PO ACBREAKFAST [facility] Last Admin: 08/07/16 07:19 Dose: 40 mg Potassium Chloride (Potassium Chloride) 10 meq PO DAILY [facility] Last Admin: 08/07/16 10:01 Dose: 10 meq Propranolol HCl (Inderal La) 80 mg PO BEDTIME [facility] Last Admin: 08/06/16 20:51 Dose: 80 mg Senna (Senna) 8.6 mg PO BID PRN PRN Reason: Constipation Last Admin: 08/07/16 10:10 Dose: 8.6 mg Sertraline HCl (Zoloft) 100 mg PO BEDTIME [facility] Last Admin: 08/06/16 20:53 Dose: 100 mg Sodium Chloride (Saline Flush) 10 ml FLUSH ASDIRECTED PRN PRN Reason: Keep Vein Open Tramadol HCl (Ultram) 100 mg PO Q6H PRN PRN Reason: Pain Last Admin: 08/06/16 08:19 Dose: 100 mg Zolpidem Tartrate (Ambien) 5 mg PO BEDTIME PRN PRN Reason: Insomnia Discontinued Medications Alprazolam (Xanax) 0.5 mg PO NOW ONE Stop: 08/01/16 19:56 Last Admin: 08/01/16 21:01 Dose: 0.5 mg Bupivacaine HCl/Epinephrine Bitart (Marcaine 0.5%/Epinephrine 1:200,000) Confirm Administered Dose 50 ml .ROUTE .STK-MED ONE Stop: 08/02/16 11:52 Bupivacaine HCl/Epinephrine Bitart (Marcaine 0.5%/Epinephrine 1:200,000) 40 ml INJECT .STK-MED ONE Stop: 08/02/16 11:55 Last Admin: 08/02/16 11:54 Dose: 40 ml Cyclobenzaprine HCl (Flexeril) 10 mg PO TID [facility] Last Admin: 08/02/16 14:06 Dose: Not Given Dexamethasone (Dexamethasone) 8 mg IVPUSH Q6H [facility] Last Admin: 08/01/16 08:21 Dose: 8 mg Dexamethasone (Dexamethasone) Confirm Administered Dose 4 mg .ROUTE .STK-MED ONE Stop: 08/02/16 09:31 Dexamethasone (Dexamethasone) 8 mg IVPUSH Q6H [facility] Stop: 08/03/16 18:01 Last Admin: 08/03/16 17:12 Dose: 8 mg Diazepam (Valium.) 5 mg PO ASDIRECTED ONE Stop: 08/01/16 10:01 Last Admin: 08/01/16 10:30 Dose: Not Given Diazepam (Valium) 5 mg IVPUSH Q6H PRN PRN Reason: Spasms Last Admin: 08/05/16 04:59 Dose: 5 mg Fentanyl (Sublimaze) Confirm Administered Dose 500 mcg .ROUTE .STK-MED ONE Stop: 08/02/16 09:32 Fentanyl (Sublimaze) Confirm Administered Dose 250 mcg .ROUTE .STK-MED ONE Stop: 08/02/16 11:19 Fentanyl (Sublimaze) Confirm Administered Dose 250 mcg .ROUTE .STK-MED ONE Stop: 08/02/16 12:33 Fentanyl (Sublimaze) Confirm Administered Dose 250 mcg .ROUTE .STK-MED ONE Stop: 08/02/16 14:23 Fentanyl (Sublimaze) Confirm Administered Dose 250 mcg .ROUTE .STK-MED ONE Stop: 08/02/16 15:45 Fentanyl (Sublimaze) Confirm Administered Dose 250 mcg .ROUTE .STK-MED ONE Stop: 08/02/16 16:08 Fentanyl (Sublimaze) 50 - 100 mcg IVPUSH ASDIRECTED PRN PRN Reason: PAIN Stop: 08/02/16 19:00 Gabapentin (Neurontin) 300 mg PO BID [facility] Last Admin: 08/01/16 00:15 Dose: Not Given Gadoteridol (Prohance) 20 ml IV . DIRECTED PRN PRN Reason: RADIOLOGY EXAM Stop: 08/02/16 10:46 Last Admin: 08/01/16 11:13 Dose: 20 ml Glycopyrrolate () Confirm Administered Dose 1 mg .ROUTE .STK-MED ONE Stop: 08/02/16 09:33 Hydromorphone HCl (Dilaudid) 0.5 - 1 mg IV ASDIRECTED PRN PRN Reason: PAIN Stop: 08/02/16 19:00 Last Admin: 08/02/16 18:52 Dose: 1 mg Hydroxyzine HCl (Vistaril) 50 - 100 mg IM ASDIRECTED PRN PRN Reason: PAIN Stop: 08/02/16 19:00 Magnesium Sulfate 2 gm/ Premix 50 mls @ 25 mls/hr IV ONETIME ONE Stop: 08/01/16 18:59 Last Admin: 08/01/16 17:20 Dose: 25 mls/hr Lactated Ringer's (Ringers, Lactated) 1,000 mls @ 75 mls/hr IV ASDIRECTED [facility] Last Admin: 08/05/16 05:04 Dose: 75 mls/hr Cefazolin Sodium/Dextrose 2 gm (/ Premix) 50 mls @ 100 mls/hr IV PREPRO ONE Stop: 08/02/16 08:59 Last Admin: 08/02/16 12:48 Dose: Not Given Tranexamic Acid 950 mg/ Sodium (Chloride) 59.5 mls @ 238 mls/hr IV Q3H [facility] Stop: 08/02/16 12:14 Last Admin: 08/02/16 19:24 Dose: Not Given Lactated Ringer's (Ringers, Lactated) Confirm Administered Dose 1,000 mls @ as directed .ROUTE .STK-MED ONE Stop: 08/02/16 15:32 Lactated Ringer's (Ringers, Lactated) Confirm Administered Dose 1,000 mls @ as directed .ROUTE .STK-MED ONE Stop: 08/02/16 15:32 Lactated Ringer's (Ringers, Lactated) Confirm Administered Dose 1,000 mls @ as directed .ROUTE .STK-MED ONE Stop: 08/02/16 15:37 Cefazolin Sodium/Dextrose 2 gm (/ Premix) 50 mls @ 100 mls/hr IV Q8H [facility] Stop: 08/03/16 12:29 Last Admin: 08/03/16 03:52 Dose: 100 mls/hr Cefazolin Sodium 2 gm/ Sodium (Chloride) 50 mls @ 100 mls/hr IV ONETIME ONE Stop: 08/03/16 12:29 Last Admin: 08/03/16 12:02 Dose: 100 mls/hr Insulin Aspart (Novolog) 0 unit SUBCUT ASDIRECTED [facility] PRN Reason: Protocol Last Admin: 08/04/16 08:28 Dose: 3 units Insulin Aspart (Novolog) 10 unit SUBCUT ONETIME ONE Stop: 08/05/16 16:59 Last Admin: 08/05/16 17:13 Dose: 10 unit Labetalol HCl (Normodyne) 5 - 15 mg IVPUSH ASDIRECTED PRN PRN Reason: BP Stop: 08/02/16 19:00 Meperidine HCl (Demerol) 100 mg IM ASDIRECTED PRN PRN Reason: PAIN Stop: 08/02/16 19:00 Metoclopramide HCl (Reglan) 10 mg IVPUSH ASDIRECTED PRN PRN Reason: NAUSEA Stop: 08/02/16 19:00 Midazolam HCl (Versed 1 Mg/Ml) Confirm Administered Dose 2 mg .ROUTE .STK-MED ONE Stop: 08/02/16 09:32 Morphine Sulfate (Morphine) 1 - 4 mg IVPUSH ASDIRECTED PRN PRN Reason: PAIN Stop: 08/02/16 19:00 Naloxone HCl (Narcan) 0.2 mg IVPUSH ONETIME PRN PRN Reason: Oversedation Stop: 08/02/16 17:26 Neostigmine Methylsulfate (Neostigmine) Confirm Administered Dose 5 mg .ROUTE .STK-MED ONE Stop: 08/02/16 09:33 Ondansetron HCl (Zofran) Confirm Administered Dose 4 mg .ROUTE .STK-MED ONE Stop: 08/02/16 09:31 Ondansetron HCl (Zofran) 4 mg IVPUSH ASDIRECTED PRN PRN Reason: NAUSEA Stop: 08/02/16 19:00 Potassium Chloride (Klor-Con M20) 40 meq PO ONETIME ONE Stop: 08/05/16 10:01 Last Admin: 08/05/16 11:45 Dose: 40 meq Potassium Chloride (Klor-Con M20) 40 meq PO ONETIME ONE Stop: 08/05/16 16:01 Last Admin: 08/05/16 16:36 Dose: 40 meq Povidone Iodine (Betadine 10% Soln) Confirm Administered Dose 1 ml .ROUTE .STK- MED ONE Stop: 08/02/16 07:26 Last Admin: 08/02/16 11:51 Dose: 25 ml Propofol (Diprivan 20 Ml) Confirm Administered Dose 200 mg .ROUTE .STK-MED ONE Stop: 08/02/16 09:31 Propofol (Diprivan 20 Ml) Confirm Administered Dose 600 mg .ROUTE .STK-MED ONE Stop: 08/02/16 11:19 Propofol (Diprivan 20 Ml) Confirm Administered Dose 600 mg .ROUTE .STK-MED ONE Stop: 08/02/16 12:33 Propofol (Diprivan 20 Ml) Confirm Administered Dose 600 mg .ROUTE .STK-MED ONE Stop: 08/02/16 13:17 Propofol (Diprivan 20 Ml) Confirm Administered Dose 600 mg .ROUTE .STK-MED ONE Stop: 08/02/16 14:21 Propofol (Diprivan 20 Ml) Confirm Administered Dose 400 mg .ROUTE .STK-MED ONE Stop: 08/02/16 15:13 Propofol (Diprivan 20 Ml) Confirm Administered Dose 600 mg .ROUTE .STK-MED ONE Stop: 08/02/16 16:31 Propranolol HCl (Inderal La) 80 mg PO DAILY [facility] Last Admin: 08/01/16 08:09 Dose: Not Given Rocuronium [place] (Zemuron) Confirm Administered Dose 50 mg .ROUTE .STK-MED ONE Stop: 08/02/16 09:31 Sertraline HCl (Zoloft) 100 mg PO DAILY [facility]CRECIA Sertraline HCl (Zoloft) 100 mg PO ONETIME ONE Stop: 07/31/16 22:31 Last Admin: 07/31/16 22:16 Dose: 100 mg Succinylcholine Chloride (Succinylcholine In Ns Pf) Confirm Administered Dose 200 mg .ROUTE .STK-MED ONE Stop: 08/02/16 09:31 Thrombin (Thrombin-Jmi) Confirm Administered Dose 10,000 unit .ROUTE .STK-MED ONE Stop: 08/02/16 07:26 Last Admin: 08/02/16 11:50 Dose: 10,000 unit Thrombin (Thrombin-Jmi) Confirm Administered Dose 5,000 unit .ROUTE .STK-MED ONE Stop: 08/02/16 13:01 Last Admin: 08/02/16 13:40 Dose: 5,000 unit Zolpidem Tartrate (Ambien) 5 mg PO BEDTIME PRN PRN Reason: Sleep - Exam General: alert, oriented HEENT: Pupils equal, Pupils reactive, EOMI, Mucous membr. moist/pink Skin: warm, intact Wound/Incisions: healing well, drainage Neurological: no new focal deficit Psy/Mental Status: alert, normal affect, normal mood (Continued pain control and balance improvement. Dressing continues to be saturated.) - Problem List & Annotations (1) History of cervical spinal arthrodesis SNOMED Code(s): 372649266, 431274686 Code(s): Z98.1 - ARTHRODESIS STATUS Status: Acute Current Visit: Yes (2) Myelopathy Status: Acute Current Visit: Yes - Problem List Review Problem List Initiated/Reviewed/Updated: Yes - Plan Plan:: A: POD 5 PCF P: DC to acute care today. will f/u one month. Continue PT/OT pain control
[2016-08-07] MEDS ORDERED: Bisacodyl 10 MG Supp RECTAL ONE (11:45)
--- NOTE | 2016-08-08 00:32 | DISCH ---
DIAGNOSIS: Cervical myelopathy. PROCEDURE: Posterior cervical fusion C3-4 and C6 through T3, posterior cervical laminectomy C3-4 and C7-T1. SURGEON: Joseph Dorado D.O. CONSULTATIONS: Dr. Karan Arnold and Dr. Caleb Diaz, hospitalist. DISCHARGE CONDITION: Good. DISCHARGE DIET: Regular. MEDICATIONS: Include Percocet 5/325, one p.o. q.i.d. p.r.n. pain, diazepam 5 mg p.o. t.i.d. p.r.n. pain and spasm, amitriptyline 25 mg p.o. at bedtime, hydrochlorothiazide 12.5 mg p.o. daily, NovoLog subcu directed per Medicine, melatonin 10 mg p.o. at bedtime, Protonix 40 mg p.o. daily, potassium chloride 10 mEq p.o. daily, propranolol 80 mg cap extended release 1 p.o. at bedtime, Zoloft 100 mg p.o. at bedtime, amlodipine 5 mg p.o. daily, atorvastatin 40 mg p.o. at bedtime, glipizide 10 mg p.o. daily, metformin 1000 mg p.o. b.i.d., gabapentin 300 mg p.o. b.i.d. ALLERGIES: INCLUDE CLONIDINE AND LISINOPRIL. ACTIVITY: Weightbearing as tolerated bilateral lower extremities, nonweightbearing upper extremities. Restrictions, no lifting with upper extremities. No extreme head rotation, flexion, or extension limiting rotation to 30 degrees bilaterally, extension to 10 degrees, and flexion to 30 degrees of the neck. FOLLOWUP: August 31, Dr. Dorado, [facility]. DISCHARGE DISPOSITION: To [facility], care of Dr. Sandra. WOUND CARE: Dressing changes, please change dressings twice daily. Notify Dr. Dorado if there is any odor or purulence. SUMMARY OF HOSPITAL STAY: The patient was seen in the clinic on July 31. She was admitted that day. MRIs were done the following day. She was consented for the above surgery which was performed on 08/02/2016. She was kept postoperatively for physical therapy, occupational therapy, pain control. She continued to improve markedly. The Natarajan was taken out postoperative day 1. Her pain got better daily. On postoperative day #3, she believed that her balance was better than when she was admitted. She was discharged on postoperative day 5 to [facility]. I have personally spoken with the staff including Dr. Sandra. I have verbalized that I would especially like him to address if she does require certain medications related to psychiatric issues as her condition should be improving at this time. I would like to see her wean from gabapentin over the next two weeks if possible and we have follow up in one month after surgery.
== END 2016-08-07 11:50 | disposition home or self-care (01) | DRG 472 ==
LOC: JP.ORTCL 12:39 → JP.MS 14:47
PROVIDERS: ADMIT Orthopaedic Surgery; ATTEND Orthopaedic Surgery
PROC: 00NX0ZZ Release Thoracic Spinal Cord, Open Approach (ICD-10-PCS; principal; 2016-08-02)
PROC: 00NW0ZZ Release Cervical Spinal Cord, Open Approach (ICD-10-PCS; principal; 2016-08-02)
PROC: 0RG40Z1 (ICD-10-PCS; principal; 2016-08-02)
PROC: 0RG10Z1 (ICD-10-PCS; principal; 2016-08-02)
DX: M48.02 Spinal stenosis, cervical region (principal); M50.03 Cervical disc disorder with myelopathy, cervicothoracic region; M48.03 Spinal stenosis, cervicothoracic region; R27.0 Ataxia, unspecified; R29.6 Repeated falls; Z91.81 History of falling; M54.5 Low back pain; R20.2 Paresthesia of skin; R20.0 Anesthesia of skin; E11.9 Type 2 diabetes mellitus without complications; Z98.1 Arthrodesis status; M54.9 Dorsalgia, unspecified; G89.29 Other chronic pain; K21.9 Gastro-esophageal reflux disease without esophagitis; Z79.84 Long term (current) use of oral hypoglycemic drugs; Z88.8 Allergy status to other drugs, medicaments and biological substances
CPT/HCPCS: 36415; 70553; 70553-26; 72050; 72050-26; 72110; 72110-26; 72125; 72141; 72141-26; 72146; 72146-26; 76001; 80048; 80053; 81001; 82607; 82746; 82962; 83735; 84443; 85025; 85651; 86140; 86850; 86900; 86901; 93005; 94762; 97110-GP; 97116-GP; 97162-GP; 97165-GO; 97530-GP; 99204; A9270-GY; A9576; C1713; J0690; J1100; J1170; J2250; J2405; J2704; J3010; J3360; J3475; J7050; J7120

== ENCOUNTER 2016-09-01 15:49 | Inpatient (IN) | payer MEDICAID ==
[2016-09-01] MEDS ORDERED: Ondansetron 4 MG Tab.DIS PO PRN (15:59)
[2016-09-01] MEDS ORDERED: Docusate Sodium 100 MG Cap PO PRN (15:59)
[2016-09-01] MEDS ORDERED: Sodium Chloride 0.9% 10 ML Syringe FLUSH PRN (15:59)
[2016-09-01] MEDS ORDERED: Lactated Ringers 1,000 ML IV SCH (16:00)
[2016-09-01] MEDS ORDERED: Glucose Gel 15 GM in 37.5 GM Tube PO PRN (16:41)
[2016-09-01] MEDS ORDERED: 50% Dextrose in Water 50 ML Syringe IV PRN (16:41)
[2016-09-01] MEDS: Acetaminophen/oxyCODONE 325-5 MG Tab PO PRN ×2 (16:45→23:14)
--- NOTE | 2016-09-01 16:57 | PCM.CONS ---
H&P History of Present Illness - General Date of Service: 09/01/16 Admit Problem/Dx: Admission Diagnosis/Problem Admission Diagnosis/Problem Wound Source of Information: Patient, Family, Old records, Provider, RN notes reviewed History Limitations: Reports: No limitations - History of Present Illness Initial Comments - Free Text/Narative: This patient is a 50-year-old woman I been asked to see by Dr. Eliseo Dorado, for medical management during hospitalization. She underwent cervical spine procedure done approximately [address] Dorado. Initially she did well but now over the past few days his had significant purulent appearing drainage from the incision. She has a known history of hypertension as well as underlying type 2 diabetes mellitus. - Related Data Allergies/Adverse Reactions: Allergies Allergy/AdvReac Type Severity Reaction Status Date / Time clonidine [From Catapres] Allergy Rash Verified 07/31/16 13:34 lisinopril Allergy Hives Verified 07/31/16 13:34 Home Medications: Home Meds Amitriptyline [Elavil] 25 mg PO BEDTIME 07/31/16 [History] Gabapentin [Neurontin] 300 mg PO BID 07/31/16 [History] Hydrochlorothiazide 12.5 mg PO DAILY 07/31/16 [History] Melatonin 10 mg PO BEDTIME 07/31/16 [History] Melatonin 10 mg PO BEDTIME 07/31/16 [History] Pantoprazole [ProTONIX] 40 mg PO DAILY 07/31/16 [History] Potassium Chloride 10 meq PO DAILY 07/31/16 [History] Propranolol [Inderal LA] 80 mg PO BEDTIME 07/31/16 [History] Sertraline [Zoloft] 100 mg PO DAILY 07/31/16 [History] amLODIPine [Norvasc] 5 mg PO DAILY 07/31/16 [History] atorvaSTATin [Lipitor] 40 mg PO BEDTIME 07/31/16 [History] glipiZIDE [Glipizide ER] 10 mg PO DAILY 07/31/16 [History] metFORMIN [Glucophage] 1,000 mg PO BID 07/31/16 [History] Acetaminophen/oxyCODONE [Percocet 325-5 MG] 1 tab PO Q6HR #120 tablet 08/07/16 [ Rx] Diazepam [Valium] 5 mg PO TID #90 tablet 03/27/17 [Rx] Past Medical History Gastrointestinal History: Reports: GERD 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: Musculoskeletal History: Reports: Back pain, chronic, Neck pain, chronic Neurological History: Reports: Headaches, chronic Endocrine/Metabolic History: Reports: Diabetes, type II - Past Surgical History GI Surgical History: Reports: Arvind fundoplication Neurological Surgical History: Reports: C-Spine Musculoskeletal Surgical History: Reports: Other (see below) Other Musculoskeletal Surgeries/Procedures:: neck surgery x 2 Social & Family History - Family History Family Medical History: Noncontributory - Tobacco Use Smoking Status *Q: Never Smoker Second Hand Smoke Exposure: No - Caffeine Use Caffeine Use: Reports: Coffee - Recreational Drug Use Recreational Drug Use: No H&P Review of Systems - Review of Systems: Review Of Systems: See Below General: Denies: fever, chills, weakness, diaphoresis, decreased appetite HEENT: Reports: no symptoms Pulmonary: Reports: No Symptoms Cardiovascular: Reports: no symptoms Gastrointestinal: Reports: Nausea. Denies: Abdominal pain, Vomiting Genitourinary: Reports: no symptoms Musculoskeletal: Reports: neck pain Skin: Reports: no symptoms Psychiatric: Reports: no symptoms Neurological: Reports: Numbness, Difficulty Walking, Weakness Hematologic/Lymphatic: Reports: no symptoms Immunologic: Reports: no symptoms Exam - Exam Exam: See Below - Vital Signs Vital Signs: Last Vital Signs Temp 98.1 F 09/01/16 16:03 Pulse 94 09/01/16 16:03 Resp 16 09/01/16 16:03 BP 111/71 09/01/16 16:03 Pulse Ox 96 09/01/16 16:03 Weight: 204 lb 6.4 oz - Exam Quality Assessment: DVT prophylaxis General: alert, oriented, cooperative, mild distress Neck: supple, trachea midline, +2 carotid pulse wo bruit Lungs: Clear to auscultation, Normal respiratory effort Cardiovascular: regular rate, regular rhythm, normal S1, normal S2. No: systolic murmur, diastolic murmur Abdomen: normal bowel sounds, soft Back Exam: normal inspection, full range of motion, NT Extremities: 3, normal inspection, 10 Skin: warm, dry, intact - Patient Data Lab Results last 24 hrs: Laboratory Results - last 24 hr 09/01/16 09/01/16 Range/Units 16:15 16:15 WBC 16.2 H (4.5-11.0) K/uL RBC 3.91 (3.30-5.50) M/uL Hgb 11.2 L (12.0-15.0) g/dL Hct 34.7 L (36.0-48.0) % MCV 89 (80-98) fL MCH 29 (27-31) pg MCHC 32 (32-36) % Plt Count 578 H (150-400) K/uL Neut % (Auto) 62 (36-66) % Lymph % (Auto) 25 (24-44) % [place] % (Auto) 9 H (2-6) % Eos % (Auto) 4 (2-4) % Baso % (Auto) 1 (0-1) % Sodium 139 L (140-148) mmol/L Potassium 3.2 L (3.6-5.2) mmol/L Chloride 98 L (100-108) mmol/L Carbon Dioxide 27 (21-32) mmol/L Anion Gap 17.2 H (5.0-14.0) mmol/L BUN 14 (7-18) mg/dL Creatinine 0.8 (0.6-1.0) mg/dL Est Cr Clr Drug Dosing 74.80 mL/min Estimated GFR (MDRD) > 60 (>60) Glucose 155 H (74-106) mg/dL Calcium 8.9 (8.5-10.1) mg/dL Result Diagrams: 09/01/16 16:15 09/01/16 16:15 Consult PN Assessment/Plan Procedures: Procedures X-RAY EXAM NECK SPINE 2-3 VW (08/21/16) Problem List Initiated/Reviewed/Updated: Yes My Orders last 24 hours: My Active Orders 09/01/16 16:41 Blood Glucose Check, Bedside [RC] QIDACANDBED Diabetes Education [RC] Click to Edit Notify Provider [RC] PRN Dextrose 50% in Water 50 ml IV ONETIME PRN Dextrose [Glutose 15] 15 gm PO ONETIME PRN 09/01/16 16:42 Communication Order [RC] ASDIRECTED Potassium Chloride [Klor-Con M20] 40 meq PO ONETIME ONE 09/01/16 16:45 Insulin Aspart [NovoLOG] See Protocol SUBCUT ASDIRECTED 09/01/16 17:00 Enoxaparin [Lovenox] 40 mg SUBCUT DAILY 09/01/16 21:00 GLUCOSE POC LAB TO COLLECT [POC] QIDACANDBED Amitriptyline [Elavil] 25 mg PO BEDTIME Diazepam [Valium] 5 mg PO TID Gabapentin [Neurontin] 300 mg PO BID Melatonin [Melatonin] 10 mg PO BEDTIME Propranolol [Inderal LA] 80 mg PO BEDTIME atorvaSTATin [Lipitor] 40 mg PO BEDTIME metFORMIN [Glucophage] 1,000 mg PO BID 09/02/16 07:30 GLUCOSE POC LAB TO COLLECT [POC] QIDACANDBED 09/02/16 09:00 Hydrochlorothiazide [Hydrochlorothiazide] 12.5 mg PO DAILY Pantoprazole [ProTONIX] 40 mg PO DAILY Potassium Chloride [Potassium Chloride] 10 meq PO DAILY Sertraline [Zoloft] 100 mg PO DAILY amLODIPine [Norvasc] 5 mg PO DAILY glipiZIDE [Glipizide ER] 10 mg PO DAILY 09/02/16 11:30 GLUCOSE POC LAB TO COLLECT [POC] QIDACANDBED 09/02/16 16:30 GLUCOSE POC LAB TO COLLECT [POC] QIDACANDBED 09/02/16 21:00 GLUCOSE POC LAB TO COLLECT [POC] QIDACANDBED 09/03/16 07:30 GLUCOSE POC LAB TO COLLECT [POC] QIDACANDBED 09/03/16 11:30 GLUCOSE POC LAB TO COLLECT [POC] QIDACANDBED 09/03/16 16:30 GLUCOSE POC LAB TO COLLECT [POC] QIDACANDBED 09/03/16 21:00 GLUCOSE POC LAB TO COLLECT [POC] QIDACANDBED 09/04/16 07:30 GLUCOSE POC LAB TO COLLECT [POC] QIDACANDBED 09/04/16 11:30 GLUCOSE POC LAB TO COLLECT [POC] QIDACANDBED 09/04/16 16:30 GLUCOSE POC LAB TO COLLECT [POC] QIDACANDBED 09/04/16 21:00 GLUCOSE POC LAB TO COLLECT [POC] QIDACANDBED 09/05/16 07:30 GLUCOSE POC LAB TO COLLECT [POC] QIDACANDBED 09/05/16 11:30 GLUCOSE POC LAB TO COLLECT [POC] QIDACANDBED 09/05/16 16:30 GLUCOSE POC LAB TO COLLECT [POC] QIDACANDBED 09/05/16 21:00 GLUCOSE POC LAB TO COLLECT [POC] QIDACANDBED 09/06/16 07:30 GLUCOSE POC LAB TO COLLECT [POC] QIDACANDBED 09/06/16 11:30 GLUCOSE POC LAB TO COLLECT [POC] QIDACANDBED 09/06/16 16:30 GLUCOSE POC LAB TO COLLECT [POC] QIDACANDBED 09/06/16 21:00 GLUCOSE POC LAB TO COLLECT [POC] QIDACANDBED 09/07/16 07:30 GLUCOSE POC LAB TO COLLECT [POC] QIDACANDBED 09/07/16 11:30 GLUCOSE POC LAB TO COLLECT [POC] QIDACANDBED 09/07/16 16:30 GLUCOSE POC LAB TO COLLECT [POC] QIDACANDBED 09/07/16 21:00 GLUCOSE POC LAB TO COLLECT [POC] QIDACANDBED 09/08/16 07:30 GLUCOSE POC LAB TO COLLECT [POC] QIDACANDBED 09/08/16 11:30 GLUCOSE POC LAB TO COLLECT [POC] QIDACANDBED 09/08/16 16:30 GLUCOSE POC LAB TO COLLECT [POC] QIDACANDBED 09/08/16 21:00 GLUCOSE POC LAB TO COLLECT [POC] QIDACANDBED 09/09/16 07:30 GLUCOSE POC LAB TO COLLECT [POC] QIDACANDBED 09/09/16 11:30 GLUCOSE POC LAB TO COLLECT [POC] QIDACANDBED 09/09/16 16:30 GLUCOSE POC LAB TO COLLECT [POC] QIDACANDBED 09/09/16 21:00 GLUCOSE POC LAB TO COLLECT [POC] QIDACANDBED 09/10/16 07:30 GLUCOSE POC LAB TO COLLECT [POC] QIDACANDBED 09/10/16 11:30 GLUCOSE POC LAB TO COLLECT [POC] QIDACANDBED 09/10/16 16:30 GLUCOSE POC LAB TO COLLECT [POC] QIDACANDBED 09/10/16 21:00 GLUCOSE POC LAB TO COLLECT [POC] QIDACANDBED 09/11/16 07:30 GLUCOSE POC LAB TO COLLECT [POC] QIDACANDBED 09/11/16 11:30 GLUCOSE POC LAB TO COLLECT [POC] QIDACANDBED 09/11/16 16:30 GLUCOSE POC LAB TO COLLECT [POC] QIDACANDBED 09/11/16 21:00 GLUCOSE POC LAB TO COLLECT [POC] QIDACANDBED 09/12/16 07:30 GLUCOSE POC LAB TO COLLECT [POC] QIDACANDBED 09/12/16 11:30 GLUCOSE POC LAB TO COLLECT [POC] QIDACANDBED 09/12/16 16:30 GLUCOSE POC LAB TO COLLECT [POC] QIDACANDBED Plan: ASSESSMENT AND RECOMMENDATIONS CERVICAL WOUND INFECTION-status post surgical procedure one month ago. -Ongoing care per Dr. Joseph Dorado TYPE 2 DIABETES MELLITUS -Continue glipizide and metformin -4 times a day IV glucometers -Low-dose sliding scale NovoLog HYPERTENSION -Monitor blood pressures regularly during hospital stay -Continue outpatient medical regimen HYPERCHOLESTEROLEMIA -Continue outpatient medical regimen Requesting Provider: BS Date Consult Requested: 09/01/16 Reason for Consult: Medical management during hospital stay Patient History Reviewed: Yes
[2016-09-01] MEDS ORDERED: Ertapenem 1 GM in Sodium Chloride 0.9% 100 ML IV SCH (17:00)
[2016-09-01] MEDS: Enoxaparin 40 MG/0.4 ML Syringe SUBCUT SCH (17:58)
[2016-09-01] MEDS: metFORMIN 500 MG Tab PO SCH (17:58)
[2016-09-01] MEDS: Insulin Aspart 100 Units/ML 3 ML Pen SUBCUT SCH (17:59)
[2016-09-01] MEDS ORDERED: Potassium Chloride 20 MEQ Tab.ER PO ONE (18:00)
--- NOTE | 2016-09-01 18:17 | PCM.PN ---
- General Info Date of Service: 09/01/16 Admission Dx/Problem (Free Text): Kamille is a 42-year-old female who comes in today with concerns regarding drainage from her dressing. We have been seeing Kamille over the last 4 weeks. She has had status post cervical discectomy and a laminectomy of C7-T1. We have recently consult with [facility] do to that is where she is living. They are out of the office today and the patient in the home healthcare were quite concerned with the amount of drainage. And stated that over the last 2 days she has had more purulent yellowish discharge. with the amount of discharge the patient states that she is having quite a bit of pain now also. She unfortunately had some issues with help at home due to her having a recent stroke. She's been doing dressing changes twice a day with packing noted. Patient denies any fevers. He has been taking Levaquin orally with no changes in the redness and drainage from her wound. - Review of Systems General: Reports: Fatigue Musculoskeletal: Reports: neck pain - Patient Data Vitals - most recent: Last Vital Signs Temp 36.7 C 09/01/16 16:03 Pulse 94 09/01/16 16:03 Resp 16 09/01/16 16:03 BP 111/71 09/01/16 16:03 Pulse Ox 96 09/01/16 16:03 Weight - most recent: 204 lb 6.4 oz Lab Results last 24 hrs: Laboratory Results - last 24 hr 09/01/16 09/01/16 Range/Units 16:15 16:15 WBC 16.2 H (4.5-11.0) K/uL RBC 3.91 (3.30-5.50) M/uL Hgb 11.2 L (12.0-15.0) g/dL Hct 34.7 L (36.0-48.0) % MCV 89 (80-98) fL MCH 29 (27-31) pg MCHC 32 (32-36) % Plt Count 578 H (150-400) K/uL Neut % (Auto) 62 (36-66) % Lymph % (Auto) 25 (24-44) % [place] % (Auto) 9 H (2-6) % Eos % (Auto) 4 (2-4) % Baso % (Auto) 1 (0-1) % Sodium 139 L (140-148) mmol/L Potassium 3.2 L (3.6-5.2) mmol/L Chloride 98 L (100-108) mmol/L Carbon Dioxide 27 (21-32) mmol/L Anion Gap 17.2 H (5.0-14.0) mmol/L BUN 14 (7-18) mg/dL Creatinine 0.8 (0.6-1.0) mg/dL Est Cr Clr Drug Dosing 74.80 mL/min Estimated GFR (MDRD) > 60 (>60) Glucose 155 H (74-106) mg/dL Calcium 8.9 (8.5-10.1) mg/dL Med Orders - Current: Current Medications Amitriptyline HCl (Elavil) 25 mg PO BEDTIME [facility] Amlodipine Besylate (Norvasc) 5 mg PO DAILY [facility] Atorvastatin Calcium (Lipitor) 40 mg PO BEDTIME [facility] Dextrose (Glutose 15) 15 gm PO ASDIRECTED PRN PRN Reason: Hypoglycemia Dextrose/Water (Dextrose 50% In Water) 50 ml IV ASDIRECTED PRN PRN Reason: Hypoglycemia Diazepam (Valium.) 5 mg PO TID [facility] Docusate Sodium (Colace) 100 mg PO BID PRN PRN Reason: Constipation Enoxaparin Sodium (Lovenox) 40 mg SUBCUT Q24H [facility] Last Admin: 09/01/16 17:58 Dose: 40 mg Gabapentin (Neurontin) 300 mg PO BID [facility] Glipizide (Glucotrol Xl) 10 mg PO DAILY [facility] Hydrochlorothiazide (Hydrochlorothiazide) 12.5 mg PO DAILY [facility] Lactated Ringer's (Ringers, Lactated) 1,000 mls @ 25 mls/hr IV ASDIRECTED [facility] Meropenem 1 gm/ Sodium (Chloride) 50 mls @ 100 mls/hr IV Q8H [facility] Last Admin: 09/01/16 18:08 Dose: 100 mls/hr Insulin Aspart (Novolog) 0 unit SUBCUT ASDIRECTED [facility] PRN Reason: Protocol Last Admin: 09/01/16 17:59 Dose: 1 units Melatonin (Melatonin) 9 mg PO BEDTIME [facility] Metformin HCl (Glucophage) 1,000 mg PO BIDMEALS [facility] Last Admin: 09/01/16 17:58 Dose: 1,000 mg Ondansetron HCl (Zofran Odt) 4 mg PO Q6H PRN PRN Reason: Nausea able to take PO Oxycodone/Acetaminophen (Percocet 325-5 Mg) 2 tab PO Q4H PRN PRN Reason: Pain (moderate 4-6) Last Admin: 09/01/16 16:45 Dose: 1 tab Pantoprazole Sodium (Protonix) 40 mg PO ACBREAKFAST [facility] Potassium Chloride (Potassium Chloride) 10 meq PO DAILY [facility] Propranolol HCl (Inderal La) 80 mg PO BEDTIME [facility] Sertraline HCl (Zoloft) 100 mg PO DAILY [facility] Sodium Chloride (Saline Flush) 10 ml FLUSH ASDIRECTED PRN PRN Reason: Keep Vein Open Discontinued Medications Non-Formulary Medication (Melatonin [Melatonin]) 10 mg PO BEDTIME [facility] Potassium Chloride (Klor-Con M20) 40 meq PO ONETIME ONE Stop: 09/01/16 18:01 Last Admin: 09/01/16 17:58 Dose: 40 meq - Exam General: alert, oriented Skin: warm, dry, intact (erythema and purulant drainage noted to cervical spine incision. Redness noted along the incision. Packing is in place at the upper portion of the dressing. Redness is outlines. ) Neurological: no new focal deficit, normal gait Psy/Mental Status: alert, normal affect, normal mood - Problem List Review Problem List Initiated/Reviewed/Updated: Yes - My Orders Last 24 Hours: My Active Orders 09/01/16 15:54 Patient Status [ADT] Routine Ambulate [RC] QID May Shower [RC] ASDIRECTED Oxygen Therapy [RC] PRN Up ad Janessa [RC] ASDIRECTED Up to Chair [RC] QID VTE/DVT Education [RC] Per Unit Routine Vital Signs [RC] Q4H Resuscitation Status Routine 09/01/16 15:56 Sequential Compression Device [OM.PC] Per Unit Routine 09/01/16 15:59 Acetaminophen/oxyCODONE [Percocet 325-5 MG] 2 tab PO Q4H PRN Docusate Sodium [Colace] 100 mg PO BID PRN Ondansetron [Zofran ODT] 4 mg PO Q6H PRN Sodium Chloride 0.9% [Saline Flush] 10 ml FLUSH ASDIRECTED PRN Peripheral IV Insertion Adult [OM.PC] Routine 09/01/16 16:00 Lactated Ringers [Ringers, Lactated] 1,000 ml IV ASDIRECTED 09/01/16 16:02 Consult to Physician [CONS] Routine 09/01/16 16:03 Notify Provider Consults [RC] ASDIRECTED 09/01/16 16:14 Central Line Assessment [RC] QSHIFT Central Venous Line Insertion [OM.PC] Routine 09/01/16 18:00 Meropenem [Merrem] 1 gm Sodium Chloride 0.9% [Normal Saline] 50 ml IV Q8H 09/01/16 Dinner Regular Diet [DIET] 09/03/16 Dinner Nothing per Oral After Midnight Diet [DIET] - Plan Plan:: this time we're going to admit Kamille for IV antibiotics. We're also going to do some pain management with her with oral pain medication. We're going to have a PICC line placed for long-term IV antibiotics. We plan to do a debridement on Sunday morning at 7:30. We'll continue to monitor the patient over the weekend to make sure she doesn't get any worse.
[2016-09-01] MEDS: Amitriptyline 25 MG Tab PO SCH (20:38)
[2016-09-01] MEDS: Melatonin 3 MG Tab PO SCH (20:39)
[2016-09-01] MEDS: Propranolol 80 MG Cap.ER PO SCH (20:39)
[2016-09-01] MEDS: Gabapentin 300 MG Cap PO SCH (20:39)
[2016-09-01] MEDS: atorvaSTATin 20 MG Tab PO SCH (20:39)
[2016-09-01] MEDS: Diazepam 5 MG Tab PO SCH (20:47)
[2016-09-01] MEDS ORDERED: Non-Formulary Medication 1 Each (Atorvastatin [Lipitor] 40 MG) PO SCH (21:00)
[2016-09-01] MEDS ORDERED: Non-Formulary Medication 1 Each (Melatonin [Melatonin] 10 MG) PO SCH ×2 (21:00)
[2016-09-02] MEDS: Pantoprazole 40 MG Tab.CR PO SCH (07:04)
[2016-09-02] MEDS: Hydrochlorothiazide 12.5 MG Cap PO SCH (08:22)
[2016-09-02] MEDS: metFORMIN 500 MG Tab PO SCH ×2 (08:22→17:07)
[2016-09-02] MEDS: glipiZIDE 5 MG Tab.ER PO SCH (08:22)
[2016-09-02] MEDS: Gabapentin 300 MG Cap PO SCH ×2 (08:23→21:39)
[2016-09-02] MEDS: amLODIPine 5 MG Tab PO SCH (08:23)
[2016-09-02] MEDS: Potassium Chloride 10 MEQ Cap.ER PO SCH (08:24)
[2016-09-02] MEDS: Diazepam 5 MG Tab PO SCH ×3 (08:28→21:38)
[2016-09-02] MEDS: Sertraline 50 MG Tab PO SCH (08:29)
[2016-09-02] MEDS ORDERED: Non-Formulary Medication 1 Each (Glipizide [Glipizide Er] 10 MG) PO SCH (09:00)
[2016-09-02] MEDS ORDERED: Non-Formulary Medication 1 Each (Hydrochlorothiazide [Hydrochlorothiazide] 12.5 MG) PO SCH (09:00)
[2016-09-02] MEDS ORDERED: Non-Formulary Medication 1 Each (Potassium Chloride [Potassium Chloride] 10 MEQ) PO SCH (09:00)
[2016-09-02] MEDS ORDERED: Non-Formulary Medication 1 Each (Sertraline [Zoloft] 100 MG) PO SCH (09:00)
--- NOTE | 2016-09-02 10:04 | PCM.CONSN ---
- General Info Date of Service: 09/02/16 Functional Status: Reports: pain controlled, tolerating diet, ambulating, urinating - Review of Systems General: Reports: Weakness. Denies: Fever, Chills Pulmonary: Reports: no symptoms Cardiovascular: Reports: No Symptoms Gastrointestinal: Reports: No symptoms Systems Review Comment:: This patient has been stable since admission, she denies significant symptoms of chest pain or pressure. Vital signs have been good and she has remained afebrile. Glucose levels have remained fairly well-controlled and blood pressure control also seems to be adequate. - Patient Data Vitals - most recent: Last Vital Signs Temp 97.3 F 09/02/16 07:00 Pulse 87 09/02/16 07:00 Resp 20 09/02/16 07:00 BP 138/93 H 09/02/16 08:23 Pulse Ox 94 L 09/02/16 07:00 Weight - most recent: 204 lb 6.4 oz I&O - last 24 hours: Intake & Output 09/01/16 09/02/16 09/02/16 22:59 06:59 14:59 Intake Total 850 50 Output Total 150 700 Balance -150 150 50 Lab Results last 24 hrs: Laboratory Results - last 24 hr 09/01/16 09/01/16 09/02/16 Range/Units 16:15 16:15 08:23 WBC 16.2 H (4.5-11.0) K/uL RBC 3.91 (3.30-5.50) M/uL Hgb 11.2 L (12.0-15.0) g/dL Hct 34.7 L (36.0-48.0) % MCV 89 (80-98) fL MCH 29 (27-31) pg MCHC 32 (32-36) % Plt Count 578 H (150-400) K/uL Neut % (Auto) 62 (36-66) % Lymph % (Auto) 25 (24-44) % [place] % (Auto) 9 H (2-6) % Eos % (Auto) 4 (2-4) % Baso % (Auto) 1 (0-1) % Sodium 139 L (140-148) mmol/L Potassium 3.2 L 3.9 (3.6-5.2) mmol/L Chloride 98 L (100-108) mmol/L Carbon Dioxide 27 (21-32) mmol/L Anion Gap 17.2 H (5.0-14.0) mmol/L BUN 14 (7-18) mg/dL Creatinine 0.8 (0.6-1.0) mg/dL Est Cr Clr Drug Dosing 74.80 mL/min Estimated GFR (MDRD) > 60 (>60) Glucose 155 H (74-106) mg/dL Calcium 8.9 (8.5-10.1) mg/dL 09/02/16 Range/Units 09:30 WBC 12.8 H (4.5-11.0) K/uL RBC 3.83 (3.30-5.50) M/uL Hgb 10.9 L (12.0-15.0) g/dL Hct 34.2 L (36.0-48.0) % MCV 89 (80-98) fL MCH 29 (27-31) pg MCHC 32 (32-36) % Plt Count 501 H (150-400) K/uL Neut % (Auto) (36-66) % Lymph % (Auto) (24-44) % [place] % (Auto) (2-6) % Eos % (Auto) (2-4) % Baso % (Auto) (0-1) % Sodium (140-148) mmol/L Potassium (3.6-5.2) mmol/L Chloride (100-108) mmol/L Carbon Dioxide (21-32) mmol/L Anion Gap (5.0-14.0) mmol/L BUN (7-18) mg/dL Creatinine (0.6-1.0) mg/dL Est Cr Clr Drug Dosing mL/min Estimated GFR (MDRD) (>60) Glucose (74-106) mg/dL Calcium (8.5-10.1) mg/dL Med Orders - Current: Current Medications Amitriptyline HCl (Elavil) 25 mg PO BEDTIME [facility] Last Admin: 09/01/16 20:38 Dose: 25 mg Amlodipine Besylate (Norvasc) 5 mg PO DAILY [facility] Last Admin: 09/02/16 08:23 Dose: 5 mg Atorvastatin Calcium (Lipitor) 40 mg PO BEDTIME [facility] Last Admin: 09/01/16 20:39 Dose: 40 mg Dextrose (Glutose 15) 15 gm PO ASDIRECTED PRN PRN Reason: Hypoglycemia Dextrose/Water (Dextrose 50% In Water) 50 ml IV ASDIRECTED PRN PRN Reason: Hypoglycemia Diazepam (Valium.) 5 mg PO TID [facility] Last Admin: 09/02/16 08:28 Dose: 5 mg Docusate Sodium (Colace) 100 mg PO BID PRN PRN Reason: Constipation Enoxaparin Sodium (Lovenox) 40 mg SUBCUT Q24H [facility] Last Admin: 09/01/16 17:58 Dose: 40 mg Gabapentin (Neurontin) 300 mg PO BID [facility] Last Admin: 09/02/16 08:23 Dose: 300 mg Glipizide (Glucotrol Xl) 10 mg PO DAILY [facility] Last Admin: 09/02/16 08:22 Dose: 10 mg Hydrochlorothiazide (Hydrochlorothiazide) 12.5 mg PO DAILY [facility] Last Admin: 09/02/16 08:22 Dose: 12.5 mg Lactated Ringer's (Ringers, Lactated) 1,000 mls @ 25 mls/hr IV ASDIRECTED [facility] Meropenem 1 gm/ Sodium (Chloride) 50 mls @ 100 mls/hr IV Q8H [facility] Last Admin: 09/02/16 09:58 Dose: 100 mls/hr Insulin Aspart (Novolog) 0 unit SUBCUT ASDIRECTED [facility] PRN Reason: Protocol Last Admin: 09/01/16 17:59 Dose: 1 units Melatonin (Melatonin) 9 mg PO BEDTIME [facility] Last Admin: 09/01/16 20:39 Dose: 9 mg Metformin HCl (Glucophage) 1,000 mg PO BIDMEALS [facility] Last Admin: 09/02/16 08:22 Dose: 1,000 mg Ondansetron HCl (Zofran Odt) 4 mg PO Q6H PRN PRN Reason: Nausea able to take PO Oxycodone/Acetaminophen (Percocet 325-5 Mg) 2 tab PO Q4H PRN PRN Reason: Pain (moderate 4-6) Last Admin: 09/01/16 23:14 Dose: 1 tab Pantoprazole Sodium (Protonix) 40 mg PO ACBREAKFAST [facility] Last Admin: 09/02/16 07:04 Dose: 40 mg Potassium Chloride (Potassium Chloride) 10 meq PO DAILY [facility] Last Admin: 09/02/16 08:24 Dose: 10 meq Propranolol HCl (Inderal La) 80 mg PO BEDTIME [facility] Last Admin: 09/01/16 20:39 Dose: 80 mg Sertraline HCl (Zoloft) 100 mg PO DAILY [facility] Last Admin: 09/02/16 08:29 Dose: 100 mg Sodium Chloride (Saline Flush) 10 ml FLUSH ASDIRECTED PRN PRN Reason: Keep Vein Open Discontinued Medications Non-Formulary Medication (Melatonin [Melatonin]) 10 mg PO BEDTIME [facility] Potassium Chloride (Klor-Con M20) 40 meq PO ONETIME ONE Stop: 09/01/16 18:01 Last Admin: 09/01/16 17:58 Dose: 40 meq - Exam Quality Assessment: supplemental oxygen General: alert, oriented, cooperative, no acute distress Lungs: Clear to auscultation, Normal respiratory effort Cardiovascular: Regular Rate, Regular Rhythm Abdomen: bowel sounds present, soft, no tenderness, no distension Extremities: no edema Consult PN Assessment/Plan Procedures: Procedures X-RAY EXAM NECK SPINE 2-3 VW (08/21/16) Problem List Initiated/Reviewed/Updated: Yes My Orders last 24 hours: My Active Orders 09/01/16 16:41 Blood Glucose Check, Bedside [RC] QIDACANDBED Diabetes Education [RC] Click to Edit Notify Provider [RC] PRN Dextrose 50% in Water 50 ml IV ASDIRECTED PRN Dextrose [Glutose 15] 15 gm PO ASDIRECTED PRN 09/01/16 16:42 Communication Order [RC] ASDIRECTED 09/01/16 16:45 Insulin Aspart [NovoLOG] See Protocol SUBCUT ASDIRECTED 09/01/16 17:21 GLUCOSE POC LAB TO COLLECT [POC] Stat 09/01/16 18:00 Enoxaparin [Lovenox] 40 mg SUBCUT Q24H metFORMIN [Glucophage] 1,000 mg PO BIDMEALS 09/01/16 21:00 Amitriptyline [Elavil] 25 mg PO BEDTIME Diazepam [Valium] 5 mg PO TID Gabapentin [Neurontin] 300 mg PO BID Melatonin 9 mg PO BEDTIME Propranolol [Inderal LA] 80 mg PO BEDTIME atorvaSTATin [Lipitor] 40 mg PO BEDTIME 09/02/16 07:30 Pantoprazole [ProTONIX] 40 mg PO ACBREAKFAST 09/02/16 09:00 Hydrochlorothiazide 12.5 mg PO DAILY Potassium Chloride 10 meq PO DAILY Sertraline [Zoloft] 100 mg PO DAILY amLODIPine [Norvasc] 5 mg PO DAILY glipiZIDE [Glucotrol XL] 10 mg PO DAILY 09/02/16 11:30 GLUCOSE POC LAB TO COLLECT [POC] QIDACANDBED 09/02/16 16:30 GLUCOSE POC LAB TO COLLECT [POC] QIDACANDBED 09/02/16 21:00 GLUCOSE POC LAB TO COLLECT [POC] QIDACANDBED 09/03/16 07:30 GLUCOSE POC LAB TO COLLECT [POC] QIDACANDBED 09/03/16 11:30 GLUCOSE POC LAB TO COLLECT [POC] QIDACANDBED 09/03/16 16:30 GLUCOSE POC LAB TO COLLECT [POC] QIDACANDBED 09/03/16 21:00 GLUCOSE POC LAB TO COLLECT [POC] QIDACANDBED 09/04/16 07:30 GLUCOSE POC LAB TO COLLECT [POC] QIDACANDBED 09/04/16 11:30 GLUCOSE POC LAB TO COLLECT [POC] QIDACANDBED 09/04/16 16:30 GLUCOSE POC LAB TO COLLECT [POC] QIDACANDBED 09/04/16 21:00 GLUCOSE POC LAB TO COLLECT [POC] QIDACANDBED 09/05/16 07:30 GLUCOSE POC LAB TO COLLECT [POC] QIDACANDBED 09/05/16 11:30 GLUCOSE POC LAB TO COLLECT [POC] QIDACANDBED 09/05/16 16:30 GLUCOSE POC LAB TO COLLECT [POC] QIDACANDBED 09/05/16 21:00 GLUCOSE POC LAB TO COLLECT [POC] QIDACANDBED 09/06/16 07:30 GLUCOSE POC LAB TO COLLECT [POC] QIDACANDBED 09/06/16 11:30 GLUCOSE POC LAB TO COLLECT [POC] QIDACANDBED 09/06/16 16:30 GLUCOSE POC LAB TO COLLECT [POC] QIDACANDBED 09/06/16 21:00 GLUCOSE POC LAB TO COLLECT [POC] QIDACANDBED 09/07/16 07:30 GLUCOSE POC LAB TO COLLECT [POC] QIDACANDBED 09/07/16 11:30 GLUCOSE POC LAB TO COLLECT [POC] QIDACANDBED 09/07/16 16:30 GLUCOSE POC LAB TO COLLECT [POC] QIDACANDBED 09/07/16 21:00 GLUCOSE POC LAB TO COLLECT [POC] QIDACANDBED 09/08/16 07:30 GLUCOSE POC LAB TO COLLECT [POC] QIDACANDBED 09/08/16 11:30 GLUCOSE POC LAB TO COLLECT [POC] QIDACANDBED 09/08/16 16:30 GLUCOSE POC LAB TO COLLECT [POC] QIDACANDBED 09/08/16 21:00 GLUCOSE POC LAB TO COLLECT [POC] QIDACANDBED 09/09/16 07:30 GLUCOSE POC LAB TO COLLECT [POC] QIDACANDBED 09/09/16 11:30 GLUCOSE POC LAB TO COLLECT [POC] QIDACANDBED 09/09/16 16:30 GLUCOSE POC LAB TO COLLECT [POC] QIDACANDBED 09/09/16 21:00 GLUCOSE POC LAB TO COLLECT [POC] QIDACANDBED 09/10/16 07:30 GLUCOSE POC LAB TO COLLECT [POC] QIDACANDBED 09/10/16 11:30 GLUCOSE POC LAB TO COLLECT [POC] QIDACANDBED 09/10/16 16:30 GLUCOSE POC LAB TO COLLECT [POC] QIDACANDBED 09/10/16 21:00 GLUCOSE POC LAB TO COLLECT [POC] QIDACANDBED 09/11/16 07:30 GLUCOSE POC LAB TO COLLECT [POC] QIDACANDBED 09/11/16 11:30 GLUCOSE POC LAB TO COLLECT [POC] QIDACANDBED 09/11/16 16:30 GLUCOSE POC LAB TO COLLECT [POC] QIDACANDBED 09/11/16 21:00 GLUCOSE POC LAB TO COLLECT [POC] QIDACANDBED 09/12/16 07:30 GLUCOSE POC LAB TO COLLECT [POC] QIDACANDBED 09/12/16 11:30 GLUCOSE POC LAB TO COLLECT [POC] QIDACANDBED 09/12/16 16:30 GLUCOSE POC LAB TO COLLECT [POC] QIDACANDBED Plan: ASSESSMENT AND RECOMMENDATIONS CERVICAL WOUND INFECTION-status post surgical procedure one month ago. -Ongoing care per Dr. Joseph Dorado TYPE 2 DIABETES MELLITUS-glucose levels well controlled with current management -Continue glipizide and metformin -4 times a day IV glucometers -Low-dose sliding scale NovoLog HYPERTENSION-blood pressure has remained under adequate control on current medical therapy -Monitor blood pressures regularly during hospital stay -Continue outpatient medical regimen HYPERCHOLESTEROLEMIA -Continue outpatient medical regimen
[2016-09-02] MEDS: Acetaminophen/oxyCODONE 325-5 MG Tab PO PRN ×2 (11:32→21:38)
[2016-09-02] MEDS ORDERED: HYDROmorphone 1 MG/ML Syringe IVPUSH ONE (15:30)
--- NOTE | 2016-09-02 16:14 | PCM.PN ---
- General Info Date of Service: 09/02/16 Functional Status: Reports: pain controlled, tolerating diet, ambulating - Review of Systems General: Reports: Weakness HEENT: Reports: no symptoms Pulmonary: Reports: no symptoms Cardiovascular: Reports: No Symptoms Gastrointestinal: Reports: No symptoms Genitourinary: Reports: no symptoms Musculoskeletal: Reports: neck pain Skin: Reports: other Neurological: Reports: Numbness, Paresthesia, Difficulty Walking, Weakness, Gait Disturbance - Patient Data Vitals - most recent: Last Vital Signs Temp 98.3 F 09/02/16 14:27 Pulse 94 09/02/16 14:27 Resp 16 09/02/16 14:27 BP 147/102 H 09/02/16 14:27 Pulse Ox 98 09/02/16 14:27 Weight - most recent: 204 lb 6.4 oz I&O - last 24 hours: Intake & Output 09/02/16 09/02/16 09/02/16 06:59 14:59 22:59 Intake Total 850 950 Output Total 700 900 Balance 150 50 Lab Results last 24 hrs: Laboratory Results - last 24 hr 09/01/16 09/01/16 09/02/16 Range/Units 16:15 16:15 08:23 WBC 16.2 H (4.5-11.0) K/uL RBC 3.91 (3.30-5.50) M/uL Hgb 11.2 L (12.0-15.0) g/dL Hct 34.7 L (36.0-48.0) % MCV 89 (80-98) fL MCH 29 (27-31) pg MCHC 32 (32-36) % Plt Count 578 H (150-400) K/uL Neut % (Auto) 62 (36-66) % Lymph % (Auto) 25 (24-44) % [place] % (Auto) 9 H (2-6) % Eos % (Auto) 4 (2-4) % Baso % (Auto) 1 (0-1) % Sodium 139 L (140-148) mmol/L Potassium 3.2 L Cancelled (3.6-5.2) mmol/L Chloride 98 L (100-108) mmol/L Carbon Dioxide 27 (21-32) mmol/L Anion Gap 17.2 H (5.0-14.0) mmol/L BUN 14 (7-18) mg/dL Creatinine 0.8 (0.6-1.0) mg/dL Est Cr Clr Drug Dosing 74.80 mL/min Estimated GFR (MDRD) > 60 (>60) Glucose 155 H (74-106) mg/dL Calcium 8.9 (8.5-10.1) mg/dL Total Bilirubin (0.2-1.0) mg/dL AST (15-37) U/L ALT (12-78) U/L Alkaline Phosphatase (46-116) U/L Total Protein (6.4-8.2) g/dL Albumin (3.4-5.0) g/dL Globulin (2.3-3.5) g/dL Albumin/Globulin Ratio (1.2-2.2) 09/02/16 09/02/16 Range/Units 09:00 09:30 WBC 12.8 H (4.5-11.0) K/uL RBC 3.83 (3.30-5.50) M/uL Hgb 10.9 L (12.0-15.0) g/dL Hct 34.2 L (36.0-48.0) % MCV 89 (80-98) fL MCH 29 (27-31) pg MCHC 32 (32-36) % Plt Count 501 H (150-400) K/uL Neut % (Auto) (36-66) % Lymph % (Auto) (24-44) % [place] % (Auto) (2-6) % Eos % (Auto) (2-4) % Baso % (Auto) (0-1) % Sodium 139 L (140-148) mmol/L Potassium 3.9 (3.6-5.2) mmol/L Chloride 101 (100-108) mmol/L Carbon Dioxide 25 (21-32) mmol/L Anion Gap 16.9 H (5.0-14.0) mmol/L BUN 13 (7-18) mg/dL Creatinine 0.8 (0.6-1.0) mg/dL Est Cr Clr Drug Dosing 71.14 mL/min Estimated GFR (MDRD) > 60 (>60) Glucose 159 H (74-106) mg/dL Calcium 8.6 (8.5-10.1) mg/dL Total Bilirubin 0.6 (0.2-1.0) mg/dL AST 24 (15-37) U/L ALT 28 (12-78) U/L Alkaline Phosphatase 101 (46-116) U/L Total Protein 6.8 (6.4-8.2) g/dL Albumin 2.7 L (3.4-5.0) g/dL Globulin 4.1 H (2.3-3.5) g/dL Albumin/Globulin Ratio 0.7 L (1.2-2.2) [place] Results last 24 hrs: Microbiology 09/02/16 10:59 Gram Stain - Final Cervical Spine - Upper Med Orders - Current: Current Medications Amitriptyline HCl (Elavil) 25 mg PO BEDTIME [facility] Last Admin: 09/01/16 20:38 Dose: 25 mg Amlodipine Besylate (Norvasc) 5 mg PO DAILY [facility] Last Admin: 09/02/16 08:23 Dose: 5 mg Atorvastatin Calcium (Lipitor) 40 mg PO BEDTIME [facility] Last Admin: 09/01/16 20:39 Dose: 40 mg Dextrose (Glutose 15) 15 gm PO ASDIRECTED PRN PRN Reason: Hypoglycemia Dextrose/Water (Dextrose 50% In Water) 50 ml IV ASDIRECTED PRN PRN Reason: Hypoglycemia Diazepam (Valium.) 5 mg PO TID [facility] Last Admin: 09/02/16 14:15 Dose: 5 mg Docusate Sodium (Colace) 100 mg PO BID PRN PRN Reason: Constipation Enoxaparin Sodium (Lovenox) 40 mg SUBCUT Q24H [facility] Last Admin: 09/01/16 17:58 Dose: 40 mg Gabapentin (Neurontin) 300 mg PO BID [facility] Last Admin: 09/02/16 08:23 Dose: 300 mg Glipizide (Glucotrol Xl) 10 mg PO DAILY [facility] Last Admin: 09/02/16 08:22 Dose: 10 mg Hydrochlorothiazide (Hydrochlorothiazide) 12.5 mg PO DAILY [facility] Last Admin: 09/02/16 08:22 Dose: 12.5 mg Lactated Ringer's (Ringers, Lactated) 1,000 mls @ 25 mls/hr IV ASDIRECTED [facility] Meropenem 1 gm/ Sodium (Chloride) 50 mls @ 100 mls/hr IV Q8H [facility] Last Admin: 09/02/16 09:58 Dose: 100 mls/hr Insulin Aspart (Novolog) 0 unit SUBCUT ASDIRECTED [facility] PRN Reason: Protocol Last Admin: 09/01/16 17:59 Dose: 1 units Melatonin (Melatonin) 9 mg PO BEDTIME [facility] Last Admin: 09/01/16 20:39 Dose: 9 mg Metformin HCl (Glucophage) 1,000 mg PO BIDMEALS [facility] Last Admin: 09/02/16 08:22 Dose: 1,000 mg Ondansetron HCl (Zofran Odt) 4 mg PO Q6H PRN PRN Reason: Nausea able to take PO Oxycodone/Acetaminophen (Percocet 325-5 Mg) 1 tab PO Q6H PRN PRN Reason: Pain Last Admin: 09/02/16 11:32 Dose: 1 tab Pantoprazole Sodium (Protonix) 40 mg PO ACBREAKFAST [facility] Last Admin: 09/02/16 07:04 Dose: 40 mg Potassium Chloride (Potassium Chloride) 10 meq PO DAILY [facility] Last Admin: 09/02/16 08:24 Dose: 10 meq Propranolol HCl (Inderal La) 80 mg PO BEDTIME [facility] Last Admin: 09/01/16 20:39 Dose: 80 mg Sertraline HCl (Zoloft) 100 mg PO DAILY [facility] Last Admin: 09/02/16 08:29 Dose: 100 mg Sodium Chloride (Saline Flush) 10 ml FLUSH ASDIRECTED PRN PRN Reason: Keep Vein Open Zolpidem Tartrate (Ambien) 5 mg PO BEDTIME PRN PRN Reason: Sleep Discontinued Medications Hydromorphone HCl (Dilaudid) 1 mg IVPUSH ONETIME ONE Stop: 09/02/16 15:31 Last Admin: 09/02/16 15:32 Dose: 1 mg Non-Formulary Medication (Melatonin [Melatonin]) 10 mg PO BEDTIME [facility] Oxycodone/Acetaminophen (Percocet 325-5 Mg) 2 tab PO Q4H PRN PRN Reason: Pain (moderate 4-6) Last Admin: 09/01/16 23:14 Dose: 1 tab Potassium Chloride (Klor-Con M20) 40 meq PO ONETIME ONE Stop: 09/01/16 18:01 Last Admin: 09/01/16 17:58 Dose: 40 meq - Exam General: alert, oriented HEENT: Pupils equal, Pupils reactive Neck: supple Back Exam: decreased range of motion, paraspinal tenderness, vertebral tenderness Extremities: no edema Skin: other Wound/Incisions: no drainage Physical Findings Comments:: The patient was seen and evaluated her hospital bed. Her significant other was present during examination. She stated that her in neck continued to be sore but not a sore after she's been on some antibiotics. Her dressing was in place at the time. There was no dressing drainage at that time but it had been changed recently. She denied any other fevers or chills. He denied any photophobia, increased in headaches, nausea, or neurologic change. Preliminary studies did show gram-positive cocci which would be expected. Please note that I will be contacting the wound care facility where she was seen last Sunday to inquire if they obtain cultures at that time. Please also note that the most recent cultures were taken without a thorough washout and were superficial in nature. Examination of the wound showed mild erythema around the edges. The wound was measured the same as it was last Sunday at the wound care center. This measured 1 cm x 0.4 cm x 2 cm with undermining and tunneling noted. - Problem List Review Problem List Initiated/Reviewed/Updated: Yes - My Orders Last 24 Hours: My Active Orders 09/02/16 16:02 Wound Vac Management [OM.PC] Routine - Plan Plan:: Assessment: Superficial wound infection status post posterior cervical fusion and laminectomy. Plan: I sterilely prepped the patient's neck. I then using sterile technique applied a small sponge into the wound. I then bridged the sponge over some Adaptic as not to macerate the skin. This went to her right scapular area. We then applied the adhesive for the wound VAC. It was applied to suction at 120 mmHg. There was a slight leak which was solved by applying more adhesive tapes applied and the pack. After approximately 10 minutes, there was still no drainage in the wound VAC. We will continue to administer antibiotics while we wait for cultures. Wound VAC output will be monitored. I have given the nursing staff instructions to be aware of any photophobia, increased headaches, crystal clear serous drainage , or other neurological abnormalities. A PICC line was unable to be placed due to poor venous access. We'll most likely have this done under ultrasound guidance on Sunday. We will submit for home wound VAC. We will also contact the wound care center as they were submitted for home wound VAC as well. We expect that she should be over be discharged Sunday or Sunday. This is totally dependent on wound VAC approval.
[2016-09-02] MEDS: Enoxaparin 40 MG/0.4 ML Syringe SUBCUT SCH (17:08)
[2016-09-02] MEDS: Melatonin 3 MG Tab PO SCH (21:37)
[2016-09-02] MEDS: Zolpidem 5 MG Tab PO PRN (21:38)
[2016-09-02] MEDS: Amitriptyline 25 MG Tab PO SCH (21:38)
[2016-09-02] MEDS: Propranolol 80 MG Cap.ER PO SCH (21:39)
[2016-09-02] MEDS: atorvaSTATin 20 MG Tab PO SCH (21:39)
[2016-09-03] MEDS: Pantoprazole 40 MG Tab.CR PO SCH (07:19)
[2016-09-03] MEDS: metFORMIN 500 MG Tab PO SCH ×2 (08:03→17:55)
[2016-09-03] MEDS: Hydrochlorothiazide 12.5 MG Cap PO SCH (08:04)
[2016-09-03] MEDS: Gabapentin 300 MG Cap PO SCH ×2 (08:04→20:37)
[2016-09-03] MEDS: glipiZIDE 5 MG Tab.ER PO SCH (08:04)
[2016-09-03] MEDS: Potassium Chloride 10 MEQ Cap.ER PO SCH (08:04)
[2016-09-03] MEDS: amLODIPine 5 MG Tab PO SCH (08:05)
[2016-09-03] MEDS: Diazepam 5 MG Tab PO SCH ×3 (08:05→20:36)
[2016-09-03] MEDS: Acetaminophen/oxyCODONE 325-5 MG Tab PO PRN ×3 (08:05→20:43)
[2016-09-03] MEDS: Sertraline 50 MG Tab PO SCH (08:05)
--- NOTE | 2016-09-03 10:26 | PCM.PN ---
- General Info Functional Status: Reports: pain controlled, tolerating diet, ambulating, urinating - Review of Systems General: Reports: Weakness HEENT: Reports: no symptoms Pulmonary: Reports: no symptoms Cardiovascular: Reports: No Symptoms Gastrointestinal: Reports: No symptoms Genitourinary: Reports: no symptoms Musculoskeletal: Reports: neck pain Skin: Reports: other Neurological: Reports: Numbness, Tingling, Difficulty Walking, Weakness, Gait Disturbance Psychiatric: Reports: no symptoms - Patient Data Vitals - most recent: Last Vital Signs Temp 98.8 F 09/03/16 07:20 Pulse 96 09/03/16 07:20 Resp 16 09/03/16 07:20 BP 146/98 H 09/03/16 08:05 Pulse Ox 95 09/03/16 07:20 Weight - most recent: 204 lb 6.4 oz I&O - last 24 hours: Intake & Output 09/02/16 09/03/16 09/03/16 22:59 06:59 14:59 Intake Total 700 350 Output Total 350 550 Balance 700 -350 -200 Lab Results last 24 hrs: Laboratory Results - last 24 hr 09/02/16 09/02/16 09/03/16 Range/Units 08:23 09:00 05:42 WBC 10.1 (4.5-11.0) K/uL RBC 3.72 (3.30-5.50) M/uL Hgb 10.4 L (12.0-15.0) g/dL Hct 33.0 L (36.0-48.0) % MCV 89 (80-98) fL MCH 28 (27-31) pg MCHC 32 (32-36) % Plt Count 462 H (150-400) K/uL Sodium 139 L (140-148) mmol/L Potassium Cancelled 3.9 Chloride 101 (100-108) mmol/L Carbon Dioxide 25 (21-32) mmol/L Anion Gap 16.9 H (5.0-14.0) mmol/L BUN 13 (7-18) mg/dL Creatinine 0.8 (0.6-1.0) mg/dL Est Cr Clr Drug Dosing 71.14 mL/min Estimated GFR (MDRD) > 60 (>60) Glucose 159 H (74-106) mg/dL Calcium 8.6 (8.5-10.1) mg/dL Total Bilirubin 0.6 (0.2-1.0) mg/dL AST 24 (15-37) U/L ALT 28 (12-78) U/L Alkaline Phosphatase 101 (46-116) U/L Total Protein 6.8 (6.4-8.2) g/dL Albumin 2.7 L (3.4-5.0) g/dL Globulin 4.1 H (2.3-3.5) g/dL Albumin/Globulin Ratio 0.7 L (1.2-2.2) Wilfrid Results last 24 hrs: Microbiology 09/02/16 10:59 Gram Stain - Final Cervical Spine - Upper Wound Culture - Preliminary NO GROWTH AFTER 1 DAY Med Orders - Current: Current Medications Amitriptyline HCl (Elavil) 25 mg PO BEDTIME [facility] Last Admin: 09/02/16 21:38 Dose: 25 mg Amlodipine Besylate (Norvasc) 5 mg PO DAILY [facility] Last Admin: 09/03/16 08:05 Dose: 5 mg Atorvastatin Calcium (Lipitor) 40 mg PO BEDTIME [facility] Last Admin: 09/02/16 21:39 Dose: 40 mg Dextrose (Glutose 15) 15 gm PO ASDIRECTED PRN PRN Reason: Hypoglycemia Dextrose/Water (Dextrose 50% In Water) 50 ml IV ASDIRECTED PRN PRN Reason: Hypoglycemia Diazepam (Valium.) 5 mg PO TID [facility] Last Admin: 09/03/16 08:05 Dose: 5 mg Docusate Sodium (Colace) 100 mg PO BID PRN PRN Reason: Constipation Enoxaparin Sodium (Lovenox) 40 mg SUBCUT Q24H [facility] Last Admin: 09/02/16 17:08 Dose: 40 mg Gabapentin (Neurontin) 300 mg PO BID [facility] Last Admin: 09/03/16 08:04 Dose: 300 mg Glipizide (Glucotrol Xl) 10 mg PO DAILY [facility] Last Admin: 09/03/16 08:04 Dose: 10 mg Hydrochlorothiazide (Hydrochlorothiazide) 12.5 mg PO DAILY [facility] Last Admin: 09/03/16 08:04 Dose: 12.5 mg Meropenem 1 gm/ Sodium (Chloride) 50 mls @ 100 mls/hr IV Q8H [facility] Last Admin: 09/03/16 09:58 Dose: 100 mls/hr Insulin Aspart (Novolog) 0 unit SUBCUT ASDIRECTED [facility] PRN Reason: Protocol Last Admin: 09/01/16 17:59 Dose: 1 units Melatonin (Melatonin) 9 mg PO BEDTIME [facility] Last Admin: 09/02/16 21:37 Dose: 9 mg Metformin HCl (Glucophage) 1,000 mg PO BIDMEALS [facility] Last Admin: 09/03/16 08:03 Dose: 1,000 mg Ondansetron HCl (Zofran Odt) 4 mg PO Q6H PRN PRN Reason: Nausea able to take PO Oxycodone/Acetaminophen (Percocet 325-5 Mg) 1 tab PO Q6H PRN PRN Reason: Pain Last Admin: 09/03/16 08:05 Dose: 1 tab Pantoprazole Sodium (Protonix) 40 mg PO ACBREAKFAST [facility] Last Admin: 09/03/16 07:19 Dose: 40 mg Potassium Chloride (Potassium Chloride) 10 meq PO DAILY [facility] Last Admin: 09/03/16 08:04 Dose: 10 meq Propranolol HCl (Inderal La) 80 mg PO BEDTIME [facility] Last Admin: 09/02/16 21:39 Dose: 80 mg Sertraline HCl (Zoloft) 100 mg PO DAILY [facility] Last Admin: 09/03/16 08:05 Dose: 100 mg Sodium Chloride (Saline Flush) 10 ml FLUSH ASDIRECTED PRN PRN Reason: Keep Vein Open Zolpidem Tartrate (Ambien) 5 mg PO BEDTIME PRN PRN Reason: Sleep Last Admin: 09/02/16 21:38 Dose: 5 mg Discontinued Medications Hydromorphone HCl (Dilaudid) 1 mg IVPUSH ONETIME ONE Stop: 09/02/16 15:31 Last Admin: 09/02/16 15:32 Dose: 1 mg Lactated Ringer's (Ringers, Lactated) 1,000 mls @ 25 mls/hr IV ASDIRECTED [facility] Non-Formulary Medication (Melatonin [Melatonin]) 10 mg PO BEDTIME [facility] Oxycodone/Acetaminophen (Percocet 325-5 Mg) 2 tab PO Q4H PRN PRN Reason: Pain (moderate 4-6) Last Admin: 09/01/16 23:14 Dose: 1 tab Potassium Chloride (Klor-Con M20) 40 meq PO ONETIME ONE Stop: 09/01/16 18:01 Last Admin: 09/01/16 17:58 Dose: 40 meq - Exam General: alert, oriented HEENT: Pupils equal, Pupils reactive, EOMI Neck: supple Lungs: Clear to auscultation Cardiovascular: Regular Rate, Regular Rhythm Back Exam: decreased range of motion, paraspinal tenderness, vertebral tenderness Skin: other Wound/Incisions: drainage Neurological: no new focal deficit Psy/Mental Status: alert, normal affect, normal mood - Problem List Review Problem List Initiated/Reviewed/Updated: Yes - My Orders Last 24 Hours: My Active Orders 09/02/16 16:02 Wound Vac Management [OM.PC] Routine 09/02/16 18:23 Convert IV to Saline Lock [OM.PC] Routine - Plan Plan:: PE: Drain output minimal and seropurulent. No crystal clear drainage. Inferior portion of incision has less erythema today. No change in pain 10. Assessment: Superficial wound infection status post posterior cervical fusion and laminectomy. Plan: Continue to administer antibiotics while we wait for cultures. PICC line under ultrasound guidance on Sunday. PT/OT Ambulate PRN
[2016-09-03] MEDS: Insulin Aspart 100 Units/ML 3 ML Pen SUBCUT SCH ×2 (11:19→20:41)
--- NOTE | 2016-09-03 11:26 | PCM.CONSN ---
- General Info Date of Service: 09/03/16 Functional Status: Reports: pain controlled, ambulating, urinating - Review of Systems General: Reports: Weakness. Denies: Fever, Chills Pulmonary: Reports: no symptoms Cardiovascular: Reports: No Symptoms Gastrointestinal: Reports: No symptoms Neurological: Reports: No Symptoms Systems Review Comment:: This patient has remained stable over the past 24 hours, wound VAC was placed last night by Dr. Dorado. Vital signs have been stable, she has been afebrile, and white blood cell count has normalized. She is been able to be ambulating in the halls and is tolerating her current diet. Blood glucose levels have been within the desired range and blood pressure levels have been acceptable. - Patient Data Vitals - most recent: Last Vital Signs Temp 98.4 F 09/03/16 11:00 Pulse 95 09/03/16 11:00 Resp 16 09/03/16 11:00 BP 113/82 09/03/16 11:00 Pulse Ox 94 L 09/03/16 11:00 Weight - most recent: 204 lb 6.4 oz I&O - last 24 hours: Intake & Output 09/02/16 09/03/16 09/03/16 22:59 06:59 14:59 Intake Total 700 350 Output Total 350 550 Balance 700 -350 -200 Lab Results last 24 hrs: Laboratory Results - last 24 hr 09/03/16 Range/Units 05:42 WBC 10.1 (4.5-11.0) K/uL RBC 3.72 (3.30-5.50) M/uL Hgb 10.4 L (12.0-15.0) g/dL Hct 33.0 L (36.0-48.0) % MCV 89 (80-98) fL MCH 28 (27-31) pg MCHC 32 (32-36) % Plt Count 462 H (150-400) K/uL Wilfrid Results last 24 hrs: Microbiology 09/02/16 10:59 Gram Stain - Final Cervical Spine - Upper Wound Culture - Preliminary NO GROWTH AFTER 1 DAY Med Orders - Current: Current Medications Amitriptyline HCl (Elavil) 25 mg PO BEDTIME [facility] Last Admin: 09/02/16 21:38 Dose: 25 mg Amlodipine Besylate (Norvasc) 5 mg PO DAILY [facility] Last Admin: 09/03/16 08:05 Dose: 5 mg Atorvastatin Calcium (Lipitor) 40 mg PO BEDTIME [facility] Last Admin: 09/02/16 21:39 Dose: 40 mg Dextrose (Glutose 15) 15 gm PO ASDIRECTED PRN PRN Reason: Hypoglycemia Dextrose/Water (Dextrose 50% In Water) 50 ml IV ASDIRECTED PRN PRN Reason: Hypoglycemia Diazepam (Valium.) 5 mg PO TID [facility] Last Admin: 09/03/16 08:05 Dose: 5 mg Docusate Sodium (Colace) 100 mg PO BID PRN PRN Reason: Constipation Enoxaparin Sodium (Lovenox) 40 mg SUBCUT Q24H [facility] Last Admin: 09/02/16 17:08 Dose: 40 mg Gabapentin (Neurontin) 300 mg PO BID [facility] Last Admin: 09/03/16 08:04 Dose: 300 mg Glipizide (Glucotrol Xl) 10 mg PO DAILY [facility] Last Admin: 09/03/16 08:04 Dose: 10 mg Hydrochlorothiazide (Hydrochlorothiazide) 12.5 mg PO DAILY [facility] Last Admin: 09/03/16 08:04 Dose: 12.5 mg Meropenem 1 gm/ Sodium (Chloride) 50 mls @ 100 mls/hr IV Q8H [facility] Last Admin: 09/03/16 09:58 Dose: 100 mls/hr Insulin Aspart (Novolog) 0 unit SUBCUT ASDIRECTED [facility] PRN Reason: Protocol Last Admin: 09/03/16 11:19 Dose: 1 unit Melatonin (Melatonin) 9 mg PO BEDTIME [facility] Last Admin: 09/02/16 21:37 Dose: 9 mg Metformin HCl (Glucophage) 1,000 mg PO BIDMEALS [facility] Last Admin: 09/03/16 08:03 Dose: 1,000 mg Ondansetron HCl (Zofran Odt) 4 mg PO Q6H PRN PRN Reason: Nausea able to take PO Oxycodone/Acetaminophen (Percocet 325-5 Mg) 1 tab PO Q6H PRN PRN Reason: Pain Last Admin: 09/03/16 08:05 Dose: 1 tab Pantoprazole Sodium (Protonix) 40 mg PO ACBREAKFAST [facility] Last Admin: 09/03/16 07:19 Dose: 40 mg Potassium Chloride (Potassium Chloride) 10 meq PO DAILY [facility] Last Admin: 09/03/16 08:04 Dose: 10 meq Propranolol HCl (Inderal La) 80 mg PO BEDTIME [facility] Last Admin: 09/02/16 21:39 Dose: 80 mg Sertraline HCl (Zoloft) 100 mg PO DAILY [facility] Last Admin: 09/03/16 08:05 Dose: 100 mg Sodium Chloride (Saline Flush) 10 ml FLUSH ASDIRECTED PRN PRN Reason: Keep Vein Open Zolpidem Tartrate (Ambien) 5 mg PO BEDTIME PRN PRN Reason: Sleep Last Admin: 09/02/16 21:38 Dose: 5 mg Discontinued Medications Hydromorphone HCl (Dilaudid) 1 mg IVPUSH ONETIME ONE Stop: 09/02/16 15:31 Last Admin: 09/02/16 15:32 Dose: 1 mg Lactated Ringer's (Ringers, Lactated) 1,000 mls @ 25 mls/hr IV ASDIRECTED [facility] Non-Formulary Medication (Melatonin [Melatonin]) 10 mg PO BEDTIME [facility] Oxycodone/Acetaminophen (Percocet 325-5 Mg) 2 tab PO Q4H PRN PRN Reason: Pain (moderate 4-6) Last Admin: 09/01/16 23:14 Dose: 1 tab Potassium Chloride (Klor-Con M20) 40 meq PO ONETIME ONE Stop: 09/01/16 18:01 Last Admin: 09/01/16 17:58 Dose: 40 meq - Exam General: alert, oriented, cooperative, mild distress Lungs: Clear to auscultation, Normal respiratory effort Cardiovascular: Regular Rate, Regular Rhythm, No Murmurs Abdomen: bowel sounds present, soft, no tenderness, no distension Extremities: no edema Skin: warm, dry, intact, other (Wound VAC in place over neck wound) Consult PN Assessment/Plan Procedures: Procedures X-RAY EXAM NECK SPINE 2-3 VW (08/21/16) Problem List Initiated/Reviewed/Updated: Yes My Orders last 24 hours: My Active Orders 09/03/16 11:30 GLUCOSE POC LAB TO COLLECT [POC] QIDACANDBED 09/03/16 16:30 GLUCOSE POC LAB TO COLLECT [POC] QIDACANDBED 09/03/16 21:00 GLUCOSE POC LAB TO COLLECT [POC] QIDACANDBED 09/04/16 07:30 GLUCOSE POC LAB TO COLLECT [POC] QIDACANDBED 09/04/16 11:30 GLUCOSE POC LAB TO COLLECT [POC] QIDACANDBED 09/04/16 16:30 GLUCOSE POC LAB TO COLLECT [POC] QIDACANDBED 09/04/16 21:00 GLUCOSE POC LAB TO COLLECT [POC] QIDACANDBED 09/05/16 07:30 GLUCOSE POC LAB TO COLLECT [POC] QIDACANDBED 09/05/16 11:30 GLUCOSE POC LAB TO COLLECT [POC] QIDACANDBED 09/05/16 16:30 GLUCOSE POC LAB TO COLLECT [POC] QIDACANDBED 09/05/16 21:00 GLUCOSE POC LAB TO COLLECT [POC] QIDACANDBED 09/06/16 07:30 GLUCOSE POC LAB TO COLLECT [POC] QIDACANDBED 09/06/16 11:30 GLUCOSE POC LAB TO COLLECT [POC] QIDACANDBED 09/06/16 16:30 GLUCOSE POC LAB TO COLLECT [POC] QIDACANDBED 09/06/16 21:00 GLUCOSE POC LAB TO COLLECT [POC] QIDACANDBED 09/07/16 07:30 GLUCOSE POC LAB TO COLLECT [POC] QIDACANDBED 09/07/16 11:30 GLUCOSE POC LAB TO COLLECT [POC] QIDACANDBED 09/07/16 16:30 GLUCOSE POC LAB TO COLLECT [POC] QIDACANDBED 09/07/16 21:00 GLUCOSE POC LAB TO COLLECT [POC] QIDACANDBED 09/08/16 07:30 GLUCOSE POC LAB TO COLLECT [POC] QIDACANDBED 09/08/16 11:30 GLUCOSE POC LAB TO COLLECT [POC] QIDACANDBED 09/08/16 16:30 GLUCOSE POC LAB TO COLLECT [POC] QIDACANDBED 09/08/16 21:00 GLUCOSE POC LAB TO COLLECT [POC] QIDACANDBED 09/09/16 07:30 GLUCOSE POC LAB TO COLLECT [POC] QIDACANDBED 09/09/16 11:30 GLUCOSE POC LAB TO COLLECT [POC] QIDACANDBED 09/09/16 16:30 GLUCOSE POC LAB TO COLLECT [POC] QIDACANDBED 09/09/16 21:00 GLUCOSE POC LAB TO COLLECT [POC] QIDACANDBED 09/10/16 07:30 GLUCOSE POC LAB TO COLLECT [POC] QIDACANDBED 09/10/16 11:30 GLUCOSE POC LAB TO COLLECT [POC] QIDACANDBED 09/10/16 16:30 GLUCOSE POC LAB TO COLLECT [POC] QIDACANDBED 09/10/16 21:00 GLUCOSE POC LAB TO COLLECT [POC] QIDACANDBED 09/11/16 07:30 GLUCOSE POC LAB TO COLLECT [POC] QIDACANDBED 09/11/16 11:30 GLUCOSE POC LAB TO COLLECT [POC] QIDACANDBED 09/11/16 16:30 GLUCOSE POC LAB TO COLLECT [POC] QIDACANDBED 09/11/16 21:00 GLUCOSE POC LAB TO COLLECT [POC] QIDACANDBED 09/12/16 07:30 GLUCOSE POC LAB TO COLLECT [POC] QIDACANDBED 09/12/16 11:30 GLUCOSE POC LAB TO COLLECT [POC] QIDACANDBED 09/12/16 16:30 GLUCOSE POC LAB TO COLLECT [POC] QIDACANDBED Plan: ASSESSMENT AND RECOMMENDATIONS CERVICAL WOUND INFECTION-status post surgical procedure one month ago. Wound VAC currently in place. -Ongoing care per Dr. Joseph Dorado TYPE 2 DIABETES MELLITUS-glucose levels well controlled with current management -Continue glipizide and metformin -4 times a day IV glucometers -Low-dose sliding scale NovoLog HYPERTENSION-blood pressure has remained under adequate control on current medical therapy -Monitor blood pressures regularly during hospital stay -Continue outpatient medical regimen HYPERCHOLESTEROLEMIA -Continue outpatient medical regimen
[2016-09-03] MEDS: Enoxaparin 40 MG/0.4 ML Syringe SUBCUT SCH (17:55)
[2016-09-03] MEDS: Zolpidem 5 MG Tab PO PRN (20:36)
[2016-09-03] MEDS: Melatonin 3 MG Tab PO SCH (20:37)
[2016-09-03] MEDS: Amitriptyline 25 MG Tab PO SCH (20:37)
[2016-09-03] MEDS: Propranolol 80 MG Cap.ER PO SCH (20:38)
[2016-09-03] MEDS: atorvaSTATin 20 MG Tab PO SCH (21:00)
[2016-09-04] MEDS ORDERED: Bupivacaine 0.5%/EPINEPHrine 1:200,000 50 ML MDV ONE (06:48)
[2016-09-04] MEDS: Pantoprazole 40 MG Tab.CR PO SCH (07:24)
[2016-09-04] MEDS: metFORMIN 500 MG Tab PO SCH ×2 (07:25→16:54)
[2016-09-04] MEDS: glipiZIDE 5 MG Tab.ER PO SCH (09:00)
[2016-09-04] MEDS: Diazepam 5 MG Tab PO SCH ×2 (09:00→14:13)
[2016-09-04] MEDS: amLODIPine 5 MG Tab PO SCH (09:01)
[2016-09-04] MEDS: Potassium Chloride 10 MEQ Cap.ER PO SCH (09:02)
[2016-09-04] MEDS: Hydrochlorothiazide 12.5 MG Cap PO SCH (09:02)
[2016-09-04] MEDS: Sertraline 50 MG Tab PO SCH (09:02)
[2016-09-04] MEDS: Gabapentin 300 MG Cap PO SCH (09:02)
[2016-09-04] MEDS: Acetaminophen/oxyCODONE 325-5 MG Tab PO PRN (09:36)
--- NOTE | 2016-09-04 09:47 | PCM.CONSN ---
- General Info Date of Service: 09/04/16 Functional Status: Reports: pain controlled, tolerating diet, ambulating - Review of Systems General: Reports: Weakness Systems Review Comment:: No acute events overnight. Has a little bit of a neck ache and headache today after a fall yesterday. Blood pressure and diabetes have been well-controlled. - Patient Data Vitals - most recent: Last Vital Signs Temp 36.7 C 09/04/16 07:00 Pulse 84 09/04/16 07:00 Resp 18 09/04/16 07:00 BP 129/76 09/04/16 09:01 Pulse Ox 93 L 09/04/16 07:00 Weight - most recent: 92.714 kg I&O - last 24 hours: Intake & Output 09/03/16 09/04/16 09/04/16 22:59 06:59 14:59 Intake Total 1090 Balance 1090 Lab Results last 24 hrs: Laboratory Results - last 24 hr 09/04/16 Range/Units 05:49 WBC 9.8 (4.5-11.0) K/uL RBC 3.68 (3.30-5.50) M/uL Hgb 10.5 L (12.0-15.0) g/dL Hct 32.9 L (36.0-48.0) % MCV 89 (80-98) fL MCH 29 (27-31) pg MCHC 32 (32-36) % Plt Count 469 H (150-400) K/uL Wilfrid Results last 24 hrs: Microbiology 09/02/16 10:59 Gram Stain - Final Cervical Spine - Upper Wound Culture - Preliminary Med Orders - Current: Current Medications Amitriptyline HCl (Elavil) 25 mg PO BEDTIME [facility] Last Admin: 09/03/16 20:37 Dose: 25 mg Amlodipine Besylate (Norvasc) 5 mg PO DAILY [facility] Last Admin: 09/04/16 09:01 Dose: 5 mg Atorvastatin Calcium (Lipitor) 40 mg PO BEDTIME [facility] Last Admin: 09/03/16 21:00 Dose: 40 mg Dextrose (Glutose 15) 15 gm PO ASDIRECTED PRN PRN Reason: Hypoglycemia Dextrose/Water (Dextrose 50% In Water) 50 ml IV ASDIRECTED PRN PRN Reason: Hypoglycemia Diazepam (Valium.) 5 mg PO TID [facility] Last Admin: 09/04/16 09:00 Dose: 5 mg Docusate Sodium (Colace) 100 mg PO BID PRN PRN Reason: Constipation Enoxaparin Sodium (Lovenox) 40 mg SUBCUT Q24H [facility] Last Admin: 09/03/16 17:55 Dose: 40 mg Gabapentin (Neurontin) 300 mg PO BID [facility] Last Admin: 09/04/16 09:02 Dose: 300 mg Glipizide (Glucotrol Xl) 10 mg PO DAILY [facility] Last Admin: 09/04/16 09:00 Dose: 10 mg Hydrochlorothiazide (Hydrochlorothiazide) 12.5 mg PO DAILY [facility] Last Admin: 09/04/16 09:02 Dose: 12.5 mg Meropenem 1 gm/ Sodium (Chloride) 50 mls @ 100 mls/hr IV Q8H [facility] Last Admin: 09/04/16 01:17 Dose: 100 mls/hr Insulin Aspart (Novolog) 0 unit SUBCUT ASDIRECTED [facility] PRN Reason: Protocol Last Admin: 09/03/16 20:41 Dose: 1 unit Melatonin (Melatonin) 9 mg PO BEDTIME [facility] Last Admin: 09/03/16 20:37 Dose: 9 mg Metformin HCl (Glucophage) 1,000 mg PO BIDMEALS [facility] Last Admin: 09/04/16 07:25 Dose: 1,000 mg Ondansetron HCl (Zofran Odt) 4 mg PO Q6H PRN PRN Reason: Nausea able to take PO Oxycodone/Acetaminophen (Percocet 325-5 Mg) 1 tab PO Q6H PRN PRN Reason: Pain Last Admin: 09/04/16 09:36 Dose: 1 tab Pantoprazole Sodium (Protonix) 40 mg PO ACBREAKFAST [facility] Last Admin: 09/04/16 07:24 Dose: 40 mg Potassium Chloride (Potassium Chloride) 10 meq PO DAILY [facility] Last Admin: 09/04/16 09:02 Dose: 10 meq Propranolol HCl (Inderal La) 80 mg PO BEDTIME [facility] Last Admin: 09/03/16 20:38 Dose: 80 mg Sertraline HCl (Zoloft) 100 mg PO DAILY [facility] Last Admin: 09/04/16 09:02 Dose: 100 mg Sodium Chloride (Saline Flush) 10 ml FLUSH ASDIRECTED PRN PRN Reason: Keep Vein Open Zolpidem Tartrate (Ambien) 5 mg PO BEDTIME PRN PRN Reason: Sleep Last Admin: 09/03/16 20:36 Dose: 5 mg Discontinued Medications Bupivacaine HCl/Epinephrine Bitart (Marcaine 0.5%/Epinephrine 1:200,000) Confirm Administered Dose 50 ml .ROUTE .STK-MED ONE Stop: 09/04/16 06:49 Hydromorphone HCl (Dilaudid) 1 mg IVPUSH ONETIME ONE Stop: 09/02/16 15:31 Last Admin: 09/02/16 15:32 Dose: 1 mg Lactated Ringer's (Ringers, Lactated) 1,000 mls @ 25 mls/hr IV ASDIRECTED [facility] Non-Formulary Medication (Melatonin [Melatonin]) 10 mg PO BEDTIME [facility] Oxycodone/Acetaminophen (Percocet 325-5 Mg) 2 tab PO Q4H PRN PRN Reason: Pain (moderate 4-6) Last Admin: 09/01/16 23:14 Dose: 1 tab Potassium Chloride (Klor-Con M20) 40 meq PO ONETIME ONE Stop: 09/01/16 18:01 Last Admin: 09/01/16 17:58 Dose: 40 meq - Exam Quality Assessment: No: supplemental oxygen General: alert, oriented, cooperative, no acute distress Neck: supple Lungs: Normal respiratory effort Abdomen: no distension Skin: warm, dry Psy/Mental Status: alert, normal affect Consult PN Assessment/Plan Procedures: Procedures X-RAY EXAM NECK SPINE 2-3 VW (08/21/16) Problem List Initiated/Reviewed/Updated: Yes Plan: ASSESSMENT AND RECOMMENDATIONS - CERVICAL WOUND INFECTION - status post surgical procedure one month ago. Wound VAC currently in place. PICC line placed today for outpatient IV antibiotics. -Ongoing care per Dr. Joseph Dorado TYPE 2 DIABETES MELLITUS - blood sugar has been well-controlled. -Continue glipizide and metformin -4 times a day glucometers -Low-dose sliding scale NovoLog HYPERTENSION - blood pressure well controlled. -Continue outpatient medical regimen HYPERCHOLESTEROLEMIA -Continue outpatient medical regimen Caleb Diaz M.D.
[2016-09-04] MEDS: Insulin Aspart 100 Units/ML 3 ML Pen SUBCUT SCH ×2 (11:32→16:43)
--- NOTE | 2016-09-04 13:11 | CR ---
C-spine Comparison: 21 August 2016. Findings: There are postsurgical changes consistent with cervical spine fusion extending from C2 to- T3. The anterior and posterior hardware are intact. There is no interval change in alignment. Impression: 1. Stable postoperative findings of the cervical spine.
[2016-09-04] MEDS ORDERED: Acetaminophen/oxyCODONE 325-5 MG Tab PO PRN (14:56)
[2016-09-04 15:19] VITALS: BP 145/89
--- NOTE | 2016-09-20 12:07 | DISCH ---
PRIMARY DIAGNOSIS: Postoperative superficial wound infection. CONSULTATION: Karan Arnold MD, hospitalist for medical management. DIET: Diabetic. AMBULATION: As tolerated. PROCEDURE: Application of wound VAC. ACTIVITY: Weightbearing as tolerated. No bending, lifting, or twisting. FOLLOWUP: With Ce Green in 2 weeks. SUMMARY OF HOSPITAL STAY: The patient was admitted because she had increasing erythema and pain. Postoperatively, she has been treated at a [facility] in [place]. They were doing regular dressing changes and there was a concern that she may be having increased problems with infection. I asked that Kamille come down on Sunday when we were informed about it. We then admitted to the hospital, arranged for PICC line and then applied a wound VAC. She did quite well. After we received approval for wound VAC which is already put in motion by [place], she was discharged home in good condition with a wound VAC with an uneventful stay.
== END 2016-09-04 17:20 | disposition home or self-care (01) | DRG 863 ==
LOC: JP.MS 15:49
PROVIDERS: ADMIT Orthopaedic Surgery; ATTEND Orthopaedic Surgery
PROC: 2W12X6Z Compression of Neck using Pressure Dressing (ICD-10-PCS; principal; 2016-09-02)
DX: T81.4XXA Infection following a procedure, initial encounter (principal); Z98.1 Arthrodesis status; I10 Essential (primary) hypertension; E11.9 Type 2 diabetes mellitus without complications; Z79.84 Long term (current) use of oral hypoglycemic drugs; K21.9 Gastro-esophageal reflux disease without esophagitis; M54.9 Dorsalgia, unspecified; G89.29 Other chronic pain; E78.00 Pure hypercholesterolemia, unspecified; Z88.8 Allergy status to other drugs, medicaments and biological substances
CPT/HCPCS: 36415; 72040; 72040-26; 80048; 80053; 82962; 85025; 85027; 87070; 87205; 97605; A9270-GY; J1170; J1650; J2185; J7050

== ENCOUNTER 2017-08-22 11:05 | Day surgery (SDC) | payer MEDICAID ==
[~2017-08-22 11:05] MED LIST: Bupivacaine 0.5%/EPINEPHrine 1:200,000 50 ML MDV ONE; Dexamethasone 4 MG/ML SDV ONE; Glycopyrrolate 0.2 MG/ML 5 ML MDV ONE; Ketamine 500 MG/5 ML MDV IV SCH; Neostigmine Methylsulfate 1 MG/ML 5 ML Syringe ONE; Ondansetron 4 MG/2 ML SDV ONE; Povidone-Iodine 10% Soln 118.25 ML Bottle ONE; Propofol 200 MG/20 ML SDV ONE; Rocuronium 50 MG/5 ML Vial ONE; Succinylcholine 200 MG/10 ML MDV ONE; Thrombin (Bovine) 5,000 Unit Kit ONE; fentaNYL 250 MCG/5 ML SDV ONE
[2017-08-22] MEDS ORDERED: Scopolamine 1.5 MG Transdermal Patch TOP ONE (12:30)
[2017-08-22] MEDS ORDERED: Gabapentin 300 MG Cap PO ONE (12:30)
[2017-08-22] MEDS ORDERED: ceFAZolin 2 GM in Premix Bag 1 BAG IV ONE (12:30)
[2017-08-22] MEDS: Lactated Ringers 1,000 ML IV SCH ×2 (13:34→19:17)
[2017-08-22] MEDS: Tranexamic Acid 950 MG in Sodium Chloride 0.9% 50 ML IV SCH ×2 (14:50→16:58)
[2017-08-22] MEDS ORDERED: fentaNYL 250 MCG/5 ML SDV ONE ×2 (15:31→16:08)
[2017-08-22] MEDS ORDERED: Zolpidem 5 MG Tab PO PRN (18:28)
[2017-08-22] MEDS ORDERED: Sennosides 8.6 MG Tab PO PRN (18:28)
[2017-08-22] MEDS ORDERED: Morphine 4 MG/ML Syringe IVPUSH PRN (18:28)
[2017-08-22] MEDS ORDERED: Baclofen 10 MG Tab PO PRN (18:32)
[2017-08-22] MEDS: metFORMIN 500 MG Tab PO SCH (19:26)
[2017-08-22] MEDS ORDERED: Non-Formulary Medication 1 Each (Melatonin [Melatonin] 10 MG) PO SCH (21:00)
[2017-08-22] MEDS: Acetaminophen/oxyCODONE 325-5 MG Tab PO PRN (21:15)
[2017-08-22] MEDS ORDERED: Melatonin 3 MG Tab PO SCH (21:30)
[2017-08-22] MEDS: traMADol 50 MG Tab PO PRN (22:54)
[2017-08-22] MEDS ORDERED: ceFAZolin 1 GM in Sodium Chloride 0.9% 50 ML IV SCH (23:00)
--- NOTE | 2017-08-23 00:07 | OR ---
DATE OF PROCEDURE: 08/22/2017 PREOPERATIVE DIAGNOSES: 1. Pseudoarthrosis, C3-C4. 2. Radiculopathy, C3-C4. POSTOPERATIVE DIAGNOSES: 1. Pseudoarthrosis, C3-C4. 2. Radiculopathy, C3-C4. PROCEDURES: 1. Anterior cervical diskectomy and fusion, C3-C4. 2. Segmental instrumentation, C3-C4. 3. Interbody device placement, C3-C4. ANESTHESIA: General endotracheal intubation. FLUIDS: Lactated Ringer solution. ESTIMATED BLOOD LOSS: 25 mL. COMPLICATIONS: None. SPECIMEN: None. DISCHARGE DISPOSITION: Stable to PACU. INSTRUMENTATION: Globus coalition AGX spacer with a 14 x 6 mm plate, spacers 8 x 14, 7- degree, 6 mm implant; and there are two 14 mm bone screws. INDICATIONS FOR THE PROCEDURE: The patient is well known to me. She previously had an anterior cervical diskectomy and fusion at C4-C7. She was myelopathic when I saw her previously. We performed a posterior cervical laminectomy and fusion at C3-C4 and then from C5-T2. She did have her ups and downs, but did do better. She had trouble with balance, which was why we had done the procedure. She continued to have some balance problems, which did improve. She is having increased pain in the neck going down the low back. I then performed an MRI and a CT of the cervical spine and thoracic spine. This did show lucency around the C3-C4 screws indicative of pseudoarthrosis. Therefore, she was consented for the above-mentioned procedure. Risks and benefits of the procedure were explained to the patient. Informed consent was obtained. DETAILS OF PROCEDURE: The patient was seen preoperatively by myself and the Anesthesia staff in the preop holding area where the operative site was marked. She was brought to the operative suite by Anesthesia staff where general anesthesia was administered. Neuromonitoring leads were placed and found to be normal at baseline and throughout the case. The patient was then prepped and draped in a sterile manner. A time-out was called identifying the correct patient, correct procedure, correct site, and antibiotics had begun within the appropriate period of time. Please note that we had taped the patient. All extremities were padded and that I confirmed that we had good visualization on fluoroscopy prior to beginning. Continuing on, we then used the fluoroscopy unit to identify the C3-C4 interspace and made an oblique incision medial to the right sternocleidomastoid, carried down to the platysma. I then used Weitlaner for retraction. Bleeding during the case was controlled with Bovie electrocautery and bipolar electrocautery. I then went through the medial border of the sternocleidomastoid and then through blunt dissection entered the prevertebral space. I did encounter some small bleeders along the way, which were controlled with bipolar electrocautery. I do believe that I did see a Chyle duct, which I did retract medially. I did feel the carotid sheath and made sure that that was lateral. I then used fluoroscopy to identify the C3-C4 interspace and plate. I identified the plate through the incision and then prepared the C3-C4 interspace. I removed some osteophytes with very small rongeurs and then was able to enter the interspace with a 3-0 angled curette. I removed most of the disk material using 3-0 angled curette, Kerrison rongeurs, and pituitaries. I did remove some anterior osteophytes off the superior vertebral body on its inferior aspect. Once I got to the posterior longitudinal ligament, I stopped because I did not need to decompress the patient. We were stabilizing her for the pseudoarthrosis. I then inserted trial spacers with a 7-degree, 5 and then 6. I thought the 6 provided adequate distraction without over distraction. I then drilled the endplates, decorticated them just slightly, and then inserted my final spacer and placed the screws under direct fluoroscopic visualization. After this had been completed, I copiously irrigated with 2 L of Betadine infused irrigation. I bipolared any small bleeding areas. I then placed FloSeal at the base of the wound and then tamped any extra FloSeal left with a Ray-Anabel. I then placed a drain in the prevertebral space and then out the lateral aspect of the wound. We then closed the wound with 3-0 Stratafix closed quite nicely followed by sterile dressing and an OpSite. We then hooked that up to SINDY suction. The patient was then transferred to hospital bed, allowed to awaken from anesthesia, and taken to the PACU in stable condition. Joseph Dorado DO /[id number]
[2017-08-23] MEDS: Acetaminophen/oxyCODONE 325-5 MG Tab PO PRN ×3 (01:04→09:32)
[2017-08-23] MEDS ORDERED: ceFAZolin 1 GM in Premix Bag 1 BAG IV SCH (07:00)
[2017-08-23] MEDS: traMADol 50 MG Tab PO PRN ×2 (07:23→13:31)
[2017-08-23] MEDS: metFORMIN 500 MG Tab PO SCH (07:25)
[2017-08-23] MEDS ORDERED: Pantoprazole 40 MG Tab.CR PO SCH (07:30)
[2017-08-23] MEDS ORDERED: glipiZIDE 5 MG Tab.ER PO SCH (08:00)
[2017-08-23] MEDS ORDERED: Potassium Chloride 10 MEQ Cap.ER PO SCH (08:00)
--- NOTE | 2017-08-23 08:48 | PCM.PN ---
- General Info Functional Status: Reports: Pain Controlled - Review of Systems General: Reports: No Symptoms HEENT: Reports: No Symptoms Pulmonary: Reports: No Symptoms Cardiovascular: Reports: No Symptoms Gastrointestinal: Reports: No Symptoms Genitourinary: Reports: No Symptoms Musculoskeletal: Reports: Neck Pain, Shoulder Pain Skin: Reports: No Symptoms Neurological: Reports: Headache Psychiatric: Reports: No Symptoms - Patient Data Vitals - Most Recent: Last Vital Signs Temp 97.4 F 08/23/17 07:00 Pulse 85 08/23/17 07:00 Resp 16 08/23/17 07:00 BP 136/61 08/23/17 07:00 Pulse Ox 95 08/23/17 07:00 Weight - Most Recent: 203 lb I&O - Last 24 Hours: Intake & Output 08/22/17 08/23/17 08/23/17 22:59 06:59 14:59 Intake Total 1825 600 50 Output Total 0 Balance 1825 600 50 Lab Results Last 24 Hours: Laboratory Results - last 24 hr 08/22/17 Range/Units 12:01 Blood Type O NEGATIVE Gel Antibody Screen Negative Med Orders - Current: Current Medications Amitriptyline HCl (Elavil) 50 mg PO DAILY [facility] Amlodipine Besylate (Norvasc) 10 mg PO DAILY [facility] Atorvastatin Calcium (Lipitor) 40 mg PO DAILY [facility] Baclofen (Lioresal) 10 mg PO TID PRN PRN Reason: Spasms Gabapentin (Neurontin) 1,200 mg PO DAILY [facility] Glipizide (Glucotrol Xl) 10 mg PO DAILY@0800 [facility] Last Admin: 08/23/17 07:24 Dose: 10 mg Hydrochlorothiazide (Hydrochlorothiazide) 25 mg PO DAILY [facility] Lactated Ringer's (Ringers, Lactated) 1,000 mls @ 0 mls/hr IV ASDIRECTED [facility] Last Admin: 08/22/17 19:17 Dose: 25 mls/hr Cefazolin Sodium/Dextrose 1 gm (/ Premix) 50 mls @ 100 mls/hr IV Q8H [facility] Last Admin: 08/23/17 07:24 Dose: 100 mls/hr Melatonin (Melatonin) 9 mg PO BEDTIME [facility] Last Admin: 08/22/17 21:53 Dose: 9 mg Metformin HCl (Glucophage) 1,000 mg PO BIDMEALS [facility] Last Admin: 08/23/17 07:25 Dose: 1,000 mg Morphine Sulfate (Morphine) 4 mg IVPUSH Q2H PRN PRN Reason: Pain Oxycodone/Acetaminophen (Percocet 325-5 Mg) 1 tab PO Q4H PRN PRN Reason: Pain Last Admin: 08/23/17 05:23 Dose: 1 tab Pantoprazole Sodium (Protonix) 40 mg PO ACBREAKFAST [facility] Last Admin: 08/23/17 07:24 Dose: 40 mg Potassium Chloride (Potassium Chloride) 10 meq PO DAILY@0800 [facility] Last Admin: 08/23/17 07:25 Dose: 10 meq Propranolol HCl (Inderal La) 120 mg PO DAILY [facility] Senna (Senna) 8.6 mg PO BID PRN PRN Reason: Constipation Sertraline HCl (Zoloft) 200 mg PO DAILY [facility] Tramadol HCl (Ultram) 100 mg PO Q6H PRN PRN Reason: Pain Last Admin: 08/23/17 07:23 Dose: 100 mg Zolpidem Tartrate (Ambien) 5 mg PO BEDTIME PRN PRN Reason: Sleep Discontinued Medications Bupivacaine HCl/Epinephrine Bitart (Marcaine 0.5%/Epinephrine 1:200,000) Confirm Administered Dose 50 ml .ROUTE .STK-MED ONE Stop: 08/22/17 10:04 Dexamethasone (Dexamethasone) Confirm Administered Dose 4 mg .ROUTE .STK-MED ONE Stop: 08/22/17 08:16 Fentanyl (Sublimaze) Confirm Administered Dose 250 mcg .ROUTE .STK-MED ONE Stop: 08/22/17 08:16 Fentanyl (Sublimaze) Confirm Administered Dose 250 mcg .ROUTE .STK-MED ONE Stop: 08/22/17 15:32 Fentanyl (Sublimaze) Confirm Administered Dose 250 mcg .ROUTE .STK-MED ONE Stop: 08/22/17 16:09 Gabapentin (Neurontin) 300 mg PO ONETIME ONE Stop: 08/22/17 12:31 Last Admin: 08/22/17 13:39 Dose: 300 mg Glycopyrrolate (Robinul) Confirm Administered Dose 1 mg .ROUTE .STK-MED ONE Stop: 08/22/17 08:16 Tranexamic Acid 950 mg/ Sodium (Chloride) 59.5 mls @ 238 mls/hr IV Q3H [facility] Stop: 08/22/17 16:14 Last Admin: 08/22/17 16:58 Dose: 238 mls/hr Ketamine HCl 100 mg/ Sodium (Chloride) 100 mls @ 16.5 mls/hr IV ASDIRECTED [facility] Cefazolin Sodium/Dextrose 2 gm (/ Premix) 50 mls @ 100 mls/hr IV ONETIME ONE Stop: 08/22/17 12:59 Last Admin: 08/22/17 14:43 Dose: 100 mls/hr Propofol (Diprivan 100 Ml) Confirm Administered Dose 100 mls @ as directed .ROUTE .STK-MED ONE Stop: 08/22/17 15:04 Cefazolin Sodium 1 gm/ Sodium (Chloride) 50 mls @ 100 mls/hr IV Q8H [facility] Last Admin: 08/22/17 22:43 Dose: 100 mls/hr Ketamine HCl (Ketalar) 28 mg IV ASDIRECTED [facility] Neostigmine Methylsulfate (Neostigmine) Confirm Administered Dose 5 mg .ROUTE .STK-MED ONE Stop: 08/22/17 08:16 Non-Formulary Medication (Melatonin [Melatonin]) 10 mg PO BEDTIME [facility] Last Admin: 08/22/17 22:28 Dose: Not Given Ondansetron HCl (Zofran) Confirm Administered Dose 4 mg .ROUTE .STK-MED ONE Stop: 08/22/17 08:16 Povidone Iodine (Betadine 10% Soln) Confirm Administered Dose 1 ml .ROUTE .STK- MED ONE Stop: 08/22/17 10:04 Last Admin: 08/22/17 16:15 Dose: 30 ml Propofol (Diprivan 20 Ml) Confirm Administered Dose 200 mg .ROUTE .STK-MED ONE Stop: 08/22/17 08:16 Rocuronium [place] (Zemuron) Confirm Administered Dose 50 mg .ROUTE .STK-MED ONE Stop: 08/22/17 08:16 Scopolamine (Transderm-Scop) 1.5 mg TOP ONETIME ONE Stop: 08/22/17 12:31 Last Admin: 08/22/17 13:37 Dose: 1.5 mg Succinylcholine Chloride (Quelicin) Confirm Administered Dose 200 mg .ROUTE .STK -MED ONE Stop: 08/22/17 08:16 Thrombin (Thrombin-Jmi) Confirm Administered Dose 5,000 unit .ROUTE .STK-MED ONE Stop: 08/22/17 10:04 Last Admin: 08/22/17 15:00 Dose: 5,000 unit - Exam General: Alert, Oriented, Moderate Distress HEENT: Pupils Equal, Pupils Reactive Neck: Supple Lungs: Normal Respiratory Effort Cardiovascular: Regular Rate, Regular Rhythm Extremities: Normal Inspection, Normal Range of Motion, Non-Tender, No Pedal Edema, Normal Capillary Refill Skin: Warm, Dry, Intact Wound/Incisions: Healing Well Neurological: No New Focal Deficit Psy/Mental Status: Alert, Normal Affect, Normal Mood Physical Findings Comments:: Patient seen today in her bed. She was reluctant to get up this morning with physical therapy. I advised him to discover a few hours I believe that she'll get up. She is still having some numbness and tingling in bilateral upper extremities which is baseline for the patient. She had globally 4 out of 5 muscle strength in bilateral upper extremities. She is in [id number] distress this morning. She does have a headache. We'll see how she does throughout the day. My plan is to discharge her home later today. Her SINDY drain fell out when she is going to the bathroom early this morning. We will continue to monitor her neck measurements. She denies any change in her breathing, swallowing, or speech. - Problem List Review Problem List Initiated/Reviewed/Updated: Yes - My Orders Last 24 Hours: My Active Orders 08/22/17 12:00 SCD [Sequential Compression Device] [OM.PC] Routine 08/22/17 12:30 Fluoro Up To 1Hr [CR] Routine Lactated Ringers [Ringers, Lactated] 1,000 ml IV ASDIRECTED 08/22/17 18:28 Patient Status [ADT] Routine Ambulate [RC] ASDIRECTED Head of Bed Elevation [RC] CONTINUOUS May Shower [RC] ASDIRECTED Notify Provider Intake and Out [RC] ASDIRECTED Notify Provider Laboratory Res [RC] ASDIRECTED Notify Provider Status Change [RC] ASDIRECTED Oxygen Therapy [RC] PRN RT Incentive Spirometry [RC] Q1HWA Turn, Cough, Deep Breathe [RC] Q1HWA Up to Chair [RC] TIDMEALS Consult to Physician [CONS] Routine OT Evaluation and Treatment [CONS] Routine PT Evaluation and Treatment [CONS] Routine Respiratory Care Assess and Treatment [CONS] Routine Acetaminophen/oxyCODONE [Percocet 325-5 MG] 1 tab PO Q4H PRN Morphine 4 mg IVPUSH Q2H PRN Sennosides [Senna] 8.6 mg PO BID PRN Zolpidem [Ambien] 5 mg PO BEDTIME PRN Encourage Fluids [OM.PC] Routine Resuscitation Status Routine 08/22/17 18:29 Neurovascular Check [RC] Q4H 08/22/17 18:30 Oral Care [OM.PC] BID 08/22/17 18:32 Notify Provider Consults [RC] ASDIRECTED Baclofen [Lioresal] 10 mg PO TID PRN traMADol [Ultram] 100 mg PO Q6H PRN 08/22/17 18:45 metFORMIN [Glucophage] 1,000 mg PO BIDMEALS 08/22/17 21:30 Melatonin 9 mg PO BEDTIME 08/22/17 Dinner Advance Diet Instructions [DIET] 08/23/17 06:00 Drain Removal [OM.PC] Routine 08/23/17 07:00 ceFAZolin [Ancef] 1 gm Premix Bag 1 bag IV Q8H 08/23/17 07:30 Pantoprazole [ProTONIX] 40 mg PO ACBREAKFAST 08/23/17 08:00 Potassium Chloride 10 meq PO DAILY@0800 glipiZIDE [Glucotrol XL] 10 mg PO DAILY@0800 08/23/17 09:00 Amitriptyline [Elavil] 50 mg PO DAILY Gabapentin [Neurontin] 1,200 mg PO DAILY Hydrochlorothiazide 25 mg PO DAILY Propranolol [Inderal LA] 120 mg PO DAILY Sertraline [Zoloft] 200 mg PO DAILY amLODIPine [Norvasc] 10 mg PO DAILY atorvaSTATin [Lipitor] 40 mg PO DAILY 08/23/17 18:30 Oral Care [OM.PC] BID 08/24/17 18:30 Oral Care [OM.PC] BID 08/25/17 18:30 Oral Care [OM.PC] BID 08/26/17 18:30 Oral Care [OM.PC] BID 08/27/17 18:30 Oral Care [OM.PC] BID 08/28/17 18:30 Oral Care [OM.PC] BID 08/29/17 18:30 Oral Care [OM.PC] BID 08/30/17 18:30 Oral Care [OM.PC] BID 08/31/17 18:30 Oral Care [OM.PC] BID - Plan Plan:: A:anterior cervical discectomy and fusion postoperative day 1 Plan: Physical therapy, occupational therapy, pain control, continue to monitor neck measurements, most likely discharge later in the afternoon.
[2017-08-23] MEDS ORDERED: Gabapentin 400 MG Cap PO SCH (09:00)
[2017-08-23] MEDS ORDERED: Sertraline 50 MG Tab PO SCH (09:00)
[2017-08-23] MEDS ORDERED: atorvaSTATin 20 MG Tab PO SCH (09:00)
[2017-08-23] MEDS ORDERED: Hydrochlorothiazide 25 MG Tab PO SCH (09:00)
[2017-08-23] MEDS ORDERED: amLODIPine 10 MG Tab PO SCH (09:00)
[2017-08-23] MEDS ORDERED: Propranolol 60 MG Cap.ER PO SCH (09:00)
[2017-08-23] MEDS ORDERED: Propranolol 80 MG Cap.ER PO SCH (09:00)
[2017-08-23 10:56] VITALS: BP 137/75
== END 2017-08-23 15:01 | disposition home or self-care (01) ==
LOC: JP.SDS 11:05 → JP.MS 17:45 → JP.SDS 08-23 15:01
PROVIDERS: ATTEND Orthopaedic Surgery
DX: M54.12 Radiculopathy, cervical region (principal); M96.0 Pseudarthrosis after fusion or arthrodesis; K21.9 Gastro-esophageal reflux disease without esophagitis; F32.9 Major depressive disorder, single episode, unspecified; E11.9 Type 2 diabetes mellitus without complications; G89.29 Other chronic pain; R51 Headache; M54.9 Dorsalgia, unspecified; M54.2 Cervicalgia; Z88.8 Allergy status to other drugs, medicaments and biological substances; Z79.84 Long term (current) use of oral hypoglycemic drugs; Z79.899 Other long term (current) drug therapy
CPT/HCPCS: 22551; 22853; 36415; 76000; 86850; 86900; 86901; 97110; 97162; 97530; 97535; A9270; C1713; J0330; J0690; J1100; J2405; J2704; J3010; J7030; J7050; J7120; J2710; J3490